=== PATIENT | female | born 1950 | race African-American/Black ===

== ENCOUNTER 2016-10-03 19:00 | Emergency (ER) | payer OTHER ==
[~2016-10-03] VITALS: Ht 121.9 cm; Wt 65.9 kg
[~2016-10-03 19:00] MED LIST: ALBU1AER INH; ALPR0.5T99 PO; ATOR80TA PO; GABA100C2 PO; HYDR-3535 PO; LANTUS2P SQ; LEVE500 PO; NITR0.4S SL; NOVOINJ3 SQ; ROPI0.5T PO; SERT-129 PO; [UNRECOGNIZED DRUG - CODE] LEFT EYE; eliquis
--- NOTE | 2016-10-03 19:36 | PD ---
HPI Chief Complaint: generalized weakness Time Seen by Provider: 19:35 Travel History International Travel<30 days: No Contact w/Intl Traveler<30days: No History of Present Illness HPI 65-year-old female presents to the emergency department via EMS for evaluation of generalized weakness and fatigue. Patient also reports lower abdominal pain that started 2 days ago. She states she has anemia for long time, they're unsure where the blood is coming from. She does report a history of GI bleed, but states she hasn't watching and she has had no blood in her stool and no dark or tarry stools. She denies any blood in her urine. Patient states she has intermittent chest pain or shortness of breath, but none at this time. Patient has a PMH of A-fib, per pt on Eliquis, HTN, h/o CVA w/ residual weakness , COPD and HTN. Patient states she was due to have a colonoscopy in the next 1- 2 weeks, but cannot remember the name of the GI specialist. Patient denies any fevers or chills. No cough or congestion. She reports the multiple blood transfusions in the past. 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 ALL OVER) Endocrine: Yes Gastrointestinal Disorders: Yes (BLEEDING;UNKNOWN ETIOLOGY) GERD: Yes Genitourinary: Yes (RENAL INSUFF) Headaches: Yes Hiatal Hernia: Yes Hypertension: Yes Immune Disorder: No Kidney Stones: No Musculoskeletal: Yes Neurologic: Yes Psychiatric: Yes Reproductive: No Respiratory: Yes (PE/ ASTHMA) Immunizations Current: No Migraines: No Myocardial Infarction: Yes Radiation Therapy: No Renal Failure: Yes Seizures: Yes Sickle Cell Disease: No Sleep Apnea: Yes (wears a CPAP) Thyroid Disease: No Ulcer: No PNEUMOCCOCAL Vaccine (Year): 3 Menopausal: Yes Past Surgical History Abdominal Surgery: Yes (bowel reconstruction) AICD: No Arteriovenous Shunt: No Ear Surgery: No Endocrine Surgery: No Eye Surgery: No Genitourinary Surgery: No Gynecologic Surgery: Yes (hysterectomy) Hysterectomy: Yes Insulin Pump: No Joint Replacement: No Oral Surgery: No Pacemaker: No Thoracic Surgery: No Other Surgery: Yes (HYST, ABD SURGERY) Social History Alcohol Use: No Tobacco Use: No (quit over a year ago) Substance Use: No Allergies-Medications (Allergen,Severity, Reaction): Coded Allergies: Iodine (Verified Allergy, Severe, rash, 10/03/16) Latex (Verified Allergy, Severe, RASH, 10/03/16) Penicillin (Verified Allergy, Severe, SWELLING,HIVES, 10/03/16) Reported Meds & Prescriptions Reported Meds & Active Scripts Active Nitrostat (Nitroglycerin) 0.4 Mg Subl 0.4 Mg SL PRN PRN 1 TAB SL EVERY 5 MINS X 3 PRN CHEST PAIN Neurontin 100 mg Cap (Gabapentin) 100 Mg Cap 100 Mg PO TID 30 Days Reported Sertraline (Sertraline HCl) 100 Mg Tab 100 Mg PO DAILY Ropinirole 0.5 Mg Tab 0.5 Mg PO HS Nitrostat SL (Nitroglycerin) 0.4 Mg Subl 0.4 Mg SL DIRECTED PRN 1 tablet under the tongue as needed for chest pain. Repeat every 5 minutes for a total of 3 DOSES or call 911 if NO relief. Keppra (Levetiracetam) 500 Mg Tab 500 Mg PO BID Lantus Inj (Insulin Glargine) 1,000 Unit/10 Ml Vial 35 Units SQ HS Novolog Flexpen Inj (Insulin Aspart) 300 Unit/3 Ml Pen 1 Units SQ Lortab (Hydrocodone-Acetaminophen) 10-325 Mg Tab 1 Tab PO TID PRN Gabapentin 100 Mg Cap 100 Mg PO TID Ocufen Opth Drops (Flurbiprofen Sodium) 0.03% Soln Atorvastatin (Atorvastatin Calcium) 80 Mg Tab 80 Mg PO HS Xanax (Alprazolam) 0.5 Mg Tab 0.5 Mg PO Q8H PRN Proair Hfa 8.5 GM Inh (Albuterol Sulfate) 90 Mcg/Act Aer 2 Puff INH Q4-6H PRN 108 mcg/actuation [eliquis] BID Lortab 10 mg/325 mg (Hydrocodone/Acetaminophen 10 mg/325 mg) 1 Tab 1 Tab PO TID PRN Sertraline 100 mg (Sertraline HCl) 100 Mg Tab 100 Mg PO DAILY Proair Hfa (Albuterol Sulfate) 8.5 Gm Aero 2 Puff INH Q4H PRN * SHAKE WELL BEFORE USE * Ocufen (Flurbiprofen Sodium) 2.5 Ml Soln 1 Drop LEFT EYE QID Atorvastatin 80 mg (Atorvastatin Calcium) 80 Mg Tab 80 Mg PO DAILY Novolog Flexpen (Insulin Aspart) Flexpen Inj 10 Units SQ TIDAC Lantus (Insulin Glargine) 100 Units/Ml Inj 35 Units SQ HS Keppra (Levetriacetam) 500 Mg Tab 500 Mg PO Q12HR Ropinirole HCl (Ropinirole Hydrochloride) 0.5 Mg Tab 0.5 Mg PO DAILY TAKE 3 HRS PRIOR TO GOING TO BED Xanax (Alprazolam) 0.5 Mg Tab 0.5 Mg PO BIDPRN Review of Systems Except as stated in HPI: all other systems reviewed are Neg Physical Exam Narrative GENERAL: Well-developed well-nourished female patient, afebrile. SKIN: Warm and dry. HEAD: Normocephalic. Atraumatic. EYES: No scleral icterus. No injection or drainage. PERRLA. EOM intact. NECK: Supple, trachea midline. No JVD or lymphadenopathy. CARDIOVASCULAR: Regular rate and rhythm without murmurs, gallops, or rubs. RESPIRATORY: Breath sounds equal bilaterally. No accessory muscle use. Lungs sounds are clear to auscultation. GASTROINTESTINAL: Abdomen soft and nondistended. Patient has tenderness over lower abdomen to palpation. MUSCULOSKELETAL: No cyanosis, or edema. BACK: Nontender without obvious deformity. No CVA tenderness. RECTAL EXAM: No masses or tenderness, stool is brown. Hemoccult is negative. Rectal exam was done with nurse at bedside. Data Data Last Documented VS Vital Signs Date Time Temp Pulse Resp B/P Pulse Ox O2 Delivery O2 Flow Rate FiO2 10/03/16 19:38 98.4 74 16 109/70 98 Orders Electrocardiogram (10/03/16 19:31) Complete Blood Count With Diff (10/03/16 19:31) Comprehensive Metabolic Panel (10/03/16 19:31) Magnesium (Mg) (10/03/16 19:31) Urinalysis - C+S If Indicated (10/03/16 19:31) Ecg Monitoring (10/03/16 19:31) Iv Access Insert/Monitor (10/03/16 19:31) Oximetry (10/03/16 19:31) Sodium Chloride 0.9% Flush (Ns Flush) (10/03/16 19:45) Type And Screen (10/03/16 19:31) Lipase (10/03/16 19:31) Act Partial Throm Time (Ptt) (10/03/16 19:31) Prothrombin Time / Inr (Pt) (10/03/16 19:31) Ct Abd/Pel W/O Iv Contrast (10/03/16 ) Troponin I (10/03/16 19:31) Creatine Kinase (Cpk) (10/03/16 19:31) Chest, Single Ap (10/03/16 ) Labs Laboratory Tests Test 10/03/16 10/03/16 20:00 20:40 Urine Color COLORLESS Urine Turbidity CLEAR Urine pH 6.0 Urine Specific [place] 1.003 Urine Protein NEG mg/dL Urine Glucose (UA) NEG mg/dL Urine Ketones NEG mg/dL Urine Occult Blood NEG Urine Nitrite NEG Urine Bilirubin NEG Urine Urobilinogen LESS THAN 2.0 MG/DL Urine Leukocyte Esterase SMALL Urine WBC 5 /hpf Urine Squamous Epithelial 1 /hpf Cells Microscopic Urinalysis Comment CULT NOT INDICATED White Blood Count 7.9 TH/MM3 Red Blood Count 3.80 MIL/MM3 Hemoglobin 10.2 GM/DL Hematocrit 30.5 % Mean Corpuscular Volume 80.2 FL Mean Corpuscular Hemoglobin 26.8 PG Mean Corpuscular Hemoglobin 33.4 % Concent Red Cell Distribution Width 19.0 % Platelet Count 405 TH/MM3 Mean Platelet Volume 8.0 FL Neutrophils (%) (Auto) 55.3 % Lymphocytes (%) (Auto) 31.9 % Monocytes (%) (Auto) 8.2 % Eosinophils (%) (Auto) 3.6 % Basophils (%) (Auto) 1.0 % Neutrophils # (Auto) 4.4 TH/MM3 Lymphocytes # (Auto) 2.5 TH/MM3 Monocytes # (Auto) 0.7 TH/MM3 Eosinophils # (Auto) 0.3 TH/MM3 Basophils # (Auto) 0.1 TH/MM3 CBC Comment DIFF FINAL Differential Comment Prothrombin Time 11.3 SEC Prothromb Time International 1.0 RATIO Ratio Activated Partial 26.2 SEC Thromboplast Time Sodium Level 139 MEQ/L Potassium Level 4.1 MEQ/L Chloride Level 106 MEQ/L Carbon Dioxide Level 25.5 MEQ/L Anion Gap 8 MEQ/L Blood Urea Nitrogen 17 MG/DL Creatinine 1.28 MG/DL Estimat Glomerular Filtration 51 ML/MIN Rate Random Glucose 95 MG/DL Calcium Level 8.9 MG/DL Magnesium Level 2.1 MG/DL Total Bilirubin 0.2 MG/DL Aspartate Amino Transf 19 U/L (AST/SGOT) Alanine Aminotransferase 22 U/L (ALT/SGPT) Alkaline Phosphatase 201 U/L Total Creatine Kinase 82 U/L Troponin I LESS THAN 0.02 NG/ML Total Protein 7.5 GM/DL Albumin 3.2 GM/DL Lipase 209 U/L Blood Type O POSITIVE Antibody Screen NEGATIVE MDM Medical Decision Making Medical Screen Exam Complete: Yes Emergency Medical Condition: Yes Medical Record Reviewed: Yes Interpretation(s) chest x-ray - CONCLUSION: No evidence of acute cardiopulmonary disease. CT abdomen/pelvis - CONCLUSION: 1. No acute abnormality demonstrated. 2. Previous small bowel surgery with an anastomosis at the level of the distal jejunum/proximal ileum. No obstruction or inflammatory changes are demonstrated. 3. Small kidneys with patchy cortical thinning/scarring and probable numerous small cysts. Differential Diagnosis Symptomatic anemia versus electrolyte abnormality versus GI bleed versus ACS Narrative Course 65 year old female presents to the emergency department for evaluation of generalized weakness/fatigue, stating she was told her hgb was critically low. EKG, CBC, CMP, magnesium, UA, lipase, troponin, CK, type and screen, PTT, PT/INR , chest x-ray, ct abdomen/pelvis is ordered and pending. EKG shows sinus rhythm, heart rate 73, no acute ST changes. CBC shows hemoglobin 10.2, hematocrit 30.5. CMP shows creatinine 1.28, alkaline phosphatase 201. Magnesium is 2.1. CK is 82. Troponin is less than 0.02. Coags are unremarkable. UA shows no evidence of acute infection. Chest x-ray shows no evidence of acute cardiopulmonary disease. CT abdomen/pelvis shows no acute abnormality. Imaging/labs are reassuring. Patient has no need at this time for blood transfusion. I discussed the results with the patient who verbalizes agreement and understanding. She is to follow up wit her primary care physician. She is instructed to return to the emergency department for any acute, worsening of symptoms. The patient was discharged in stable condition with instructions, including return instructions and follow up instructions. Diagnosis Primary Impression: Generalized weakness Referrals: Primary Care Physician call for appointment Patient Instructions: General Instructions, Weakness (ED) Additional Instructions: Follow-up with your primary care physician. Return to the emergency department for any acute worsening of symptoms. Med/Other Pt SpecificInfo: No Change to Meds Disposition: 01 DISCHARGE HOME Condition: Stable Swathi Solano Oct 03, 2016 19:36
[2016-10-03 19:38] VITALS: BP 109/70; PULSE 74; RESP 16; TEMP 98.4; O2SAT 98
[2016-10-03] MEDS ORDERED: SODIUM CHLORIDE 0.9% FLUSH 5 ML FLUSH IVF PRN (19:45)
--- NOTE | 2016-10-03 19:55 | RADRPT ---
EXAM DATE/TIME: 10/03/2016 19:33 [facility] COMPARISON: CHEST SINGLE AP, June 04, 2015, 17:06. INDICATIONS : Shortness of breath. MEDICAL HISTORY : None. SURGICAL HISTORY : None. ENCOUNTER: Initial ACUITY: 1 day PAIN SCORE: 0/10 LOCATION: Bilateral chest FINDINGS: A single view of the chest demonstrates the lungs to be symmetrically aerated without evidence of mas s, infiltrate or effusion. The cardiomediastinal contours are unremarkable. Osseous structures are intact. CONCLUSION: No evidence of acute cardiopulmonary disease. Chad Kimball MD on October 03, 2016 at 19:53 Board Certified Radiologist. This report was verified electronically.
[2016-10-03] MEDS ORDERED: NOVOINJ3 SQ (19:57)
[2016-10-03] MEDS ORDERED: GABA100C4 PO (19:57)
[2016-10-03] MEDS ORDERED: ROPI0.5T PO (19:57)
[2016-10-03] MEDS ORDERED: [UNRECOGNIZED DRUG - CODE] (19:57)
[2016-10-03] MEDS ORDERED: ATOR1TAB18 PO (19:57)
[2016-10-03] MEDS ORDERED: ALBUAER3 INH (19:57)
[2016-10-03] MEDS ORDERED: HYDR-3535 PO (19:57)
[2016-10-03] MEDS ORDERED: LANTUS2P SQ (19:57)
[2016-10-03] MEDS ORDERED: NITR0.4S SL (19:57)
[2016-10-03] MEDS ORDERED: ALPR.5 PO (19:57)
[2016-10-03] MEDS ORDERED: LEVE500 PO (19:57)
[2016-10-03] MEDS ORDERED: SERT-129 PO (19:57)
--- NOTE | 2016-10-03 20:22 | RADRPT ---
EXAM DATE/TIME: 10/03/2016 19:55 [facility] COMPARISON: US KIDNEY/RENAL/BLADDER, July 07, 2014, 10:07. CT ABDOMEN & PELVIS W/O CONTRAST, July 12 13, 17:48. INDICATIONS : Abdomen pain past 2 days. ORAL CONTRAST: No oral contrast ingested. RADIATION DOSE: 9.96 CTDIvol (mGy) MEDICAL HISTORY : Cardiovascular disease. Hypertension. Renal insufficiency.GERD CVA COPD SURGICAL HISTORY : Hysterectomy. Bowel resection ENCOUNTER: Initial ACUITY: 2 days PAIN SCALE: 7/10 LOCATION: Bilateral abdomen TECHNIQUE: Volumetric scanning of the abdomen and pelvis was performed. Using automated exposure control and ad justment of the mA and/or kV according to patient size, radiation dose was kept as low as reasonably achievable to obtain optimal diagnostic quality images. FINDINGS: No acute abnormality seen in the liver, spleen, pancreas or adrenal glands. There are scattered vague hypodensities of both kidneys that appear generally similar to before. Patchy cortical thinning/scar ring again noted. No obstruction seen of the gastrointestinal tract. There is rectus diastases again seen with some ass ociated protruding mesenteric fat and bowel loops but no evidence of obstruction or incarceration. No acute inflammatory changes are demonstrated. There is a small bowel anastomosis anteriorly in the le ft lower pelvis. The appendix is well-visualized, normal. Previous hysterectomy. Visualized lung bases have minimal atelectasis. No acute bony abnormality demonstrated. CONCLUSION: 1. No acute abnormality demonstrated. 2. Previous small bowel surgery with an anastomosis at the level of the distal jejunum/proximal ileum . No obstruction or inflammatory changes are demonstrated. 3. Small kidneys with patchy cortical thinning/scarring and probable numerous small cysts. Chad Kimball MD on October 03, 2016 at 20:15 Board Certified Radiologist. This report was verified electronically.
[2016-10-03 20:53] LABS: AUTOMATED NEUTROPHIL # 4.4 TH/MM3 (1.8-7.7); BASOPHIL # 0.1 TH/MM3 (0-0.2); EOSINOPHIL # 0.3 TH/MM3 (0-0.4); EOSINOPHIL % 3.6 % (0.0-4.0); HEMATOCRIT 30.5 % (35.0-46.0); HEMO FLAGS DIFF FINAL; LYMPH % 31.9 % (9.0-44.0); LYMPHOCYTE # 2.5 TH/MM3 (1.0-4.8); MEAN CELL VOLUME 80.2 FL (80.0-100.0); MEAN CORPUSCULAR HEMOGLOBIN 26.8 PG (27.0-34.0); MEAN CORPUSCULAR HGB CONC 33.4 % (32.0-36.0); MONO % 8.2 % (0.0-8.0); NEUT % 55.3 % (16.0-70.0); PLATELET COUNT 405 TH/MM3 (150-450); WHITE BLOOD COUNT 7.9 TH/MM3 (4.0-11.0)
[2016-10-03 20:58] LABS: BLOOD, URINE NEG (NEG); COMMENT (UR) CULT NOT INDICATED; CULTURE IF INDICATED CULT NOT INDICATED; GLUCOSE,URINE NEG (NEG); KETONE, URINE NEG (NEG); NITRITE,URINE NEG (NEG); SQUAMOUS EPITHELIAL CELL URINE 1 /hpf (0-5); URINE COLOR COLORLESS (YELLW/STRAW)
[2016-10-03 21:02] LABS: APTT (PATIENT) 26.2 SEC (24.3-30.1); PROTHROMBIN TIME - PATIENT 11.3 SEC (9.8-11.6)
[2016-10-03 21:14] LABS: ANION GAP 8 MEQ/L (5-15); AST (GOT) 19 U/L (15-37); BICARBONATE 25.5 MEQ/L (21.0-32.0); BLOOD UREA NITROGEN 17 MG/DL (7-18); CHLORIDE 106 MEQ/L (98-107); GLOMERULAR FILTRATION RATE 51 ML/MIN (>89); MAGNESIUM 2.1 MG/DL (1.5-2.5); POTASSIUM 4.1 MEQ/L (3.5-5.1); SODIUM (NA) 139 MEQ/L (136-145)
[2016-10-03 21:19] LABS: ALKALINE PHOSPHATASE 201 U/L (45-117); ALT (GPT) 22 U/L (10-53); CREATINE KINASE 82 U/L (26-192); TOTAL BILIRUBIN ADULT 0.2 MG/DL (0.2-1.0)
--- NOTE | 2016-10-03 21:43 | PD ---
Data Data Last Documented VS Vital Signs Date Time Temp Pulse Resp B/P Pulse Ox O2 Delivery O2 Flow Rate FiO2 10/03/16 19:38 98.4 74 16 109/70 98 Orders Electrocardiogram (10/03/16 19:31) Complete Blood Count With Diff (10/03/16 19:31) Comprehensive Metabolic Panel (10/03/16 19:31) Magnesium (Mg) (10/03/16 19:31) Urinalysis - C+S If Indicated (10/03/16 19:31) Ecg Monitoring (10/03/16 19:31) Iv Access Insert/Monitor (10/03/16 19:31) Oximetry (10/03/16 19:31) Sodium Chloride 0.9% Flush (Ns Flush) (10/03/16 19:45) Type And Screen (10/03/16 19:31) Lipase (10/03/16 19:31) Act Partial Throm Time (Ptt) (10/03/16 19:31) Prothrombin Time / Inr (Pt) (10/03/16 19:31) Ct Abd/Pel W/O Iv Contrast (10/03/16 ) Troponin I (10/03/16 19:31) Creatine Kinase (Cpk) (10/03/16 19:31) Chest, Single Ap (10/03/16 ) Labs Laboratory Tests Test 10/03/16 10/03/16 20:00 20:40 Urine Color COLORLESS Urine Turbidity CLEAR Urine pH 6.0 Urine Specific [place] 1.003 Urine Protein NEG mg/dL Urine Glucose (UA) NEG mg/dL Urine Ketones NEG mg/dL Urine Occult Blood NEG Urine Nitrite NEG Urine Bilirubin NEG Urine Urobilinogen LESS THAN 2.0 MG/DL Urine Leukocyte Esterase SMALL Urine WBC 5 /hpf Urine Squamous Epithelial 1 /hpf Cells Microscopic Urinalysis Comment CULT NOT INDICATED White Blood Count 7.9 TH/MM3 Red Blood Count 3.80 MIL/MM3 Hemoglobin 10.2 GM/DL Hematocrit 30.5 % Mean Corpuscular Volume 80.2 FL Mean Corpuscular Hemoglobin 26.8 PG Mean Corpuscular Hemoglobin 33.4 % Concent Red Cell Distribution Width 19.0 % Platelet Count 405 TH/MM3 Mean Platelet Volume 8.0 FL Neutrophils (%) (Auto) 55.3 % Lymphocytes (%) (Auto) 31.9 % Monocytes (%) (Auto) 8.2 % Eosinophils (%) (Auto) 3.6 % Basophils (%) (Auto) 1.0 % Neutrophils # (Auto) 4.4 TH/MM3 Lymphocytes # (Auto) 2.5 TH/MM3 Monocytes # (Auto) 0.7 TH/MM3 Eosinophils # (Auto) 0.3 TH/MM3 Basophils # (Auto) 0.1 TH/MM3 CBC Comment DIFF FINAL Differential Comment Prothrombin Time 11.3 SEC Prothromb Time International 1.0 RATIO Ratio Activated Partial 26.2 SEC Thromboplast Time Sodium Level 139 MEQ/L Potassium Level 4.1 MEQ/L Chloride Level 106 MEQ/L Carbon Dioxide Level 25.5 MEQ/L Anion Gap 8 MEQ/L Blood Urea Nitrogen 17 MG/DL Creatinine 1.28 MG/DL Estimat Glomerular Filtration 51 ML/MIN Rate Random Glucose 95 MG/DL Calcium Level 8.9 MG/DL Magnesium Level 2.1 MG/DL Total Bilirubin 0.2 MG/DL Aspartate Amino Transf 19 U/L (AST/SGOT) Alanine Aminotransferase 22 U/L (ALT/SGPT) Alkaline Phosphatase 201 U/L Total Creatine Kinase 82 U/L Troponin I LESS THAN 0.02 NG/ML Total Protein 7.5 GM/DL Albumin 3.2 GM/DL Lipase 209 U/L Blood Type O POSITIVE Antibody Screen NEGATIVE MDM Supervised Visit with BOYD: Yes Narrative Course The history, exam, and medical decision-making in the associated mid-level provider note were completed with my assistance. I reviewed and agree with the findings presented. I attest that I had a [id number] encounter with the patient on the same day, and personally performed and documented my assessment and findings in the medical record. *My assessment and Findings: 64 year-old woman, multiple medical problems, presents with some abdominal pain and generalized weakness. She is worried that her hemoglobin would be low. She looks overall well. Benign exam. There are a workup including labs CT imaging chest x-ray overall unremarkable. Think she stay for discharge and for follow-up with her primary physician. Diagnosis Primary Impression: Generalized weakness Referrals: Primary Care Physician call for appointment Patient Instructions: General Instructions, Weakness (ED) Additional Instruction: Follow-up with your primary care physician. Return to the emergency department for any acute worsening of symptoms. Disposition: 01 DISCHARGE HOME Condition: Stable Adrian Owen MD Oct 03, 2016 21:43
[2016-10-03 22:32] VITALS: BP 98/56
--- NOTE | 2016-10-04 07:45 | EKG ---
Date Performed: 10/03/2016 Time Performed: 19:55:23 PTAGE: 65 years EKG: Sinus rhythm LOW QRS VOLTAGE IN PRECORDIAL LEADS POSSIBLE ANTERIOR MYOCARDIAL INFARCTION ABNORMAL ECG PREVIOUS TRACING : 06/04/2015 23.17 No significant change from previous tracing noted. DOCTOR: Sage Blackmon Interpretating Date/Time 10/04/2016 07:44:40
== END 2016-10-03 22:25 | disposition home or self-care (01) ==
LOC: NEPA 19:00
DX: R53.1 Weakness (principal); E11.8 Type 2 diabetes mellitus with unspecified complications; J44.9 Chronic obstructive pulmonary disease, unspecified; I10 Essential (primary) hypertension; R10.9 Unspecified abdominal pain; Z79.4 Long term (current) use of insulin; R94.31 Abnormal electrocardiogram [ECG] [EKG]
CPT/HCPCS: 71010; 74176; 80053; 81001; 82550; 83690; 83735; 84484; 85025; 85610; 85730; 86850; 86900; 86901; 93005

== ENCOUNTER 2017-06-28 18:58 | Emergency (ER) | payer OTHER, MEDICAID ==
[~2017-06-28] VITALS: Ht 144.8 cm; Wt 75.0 kg
[~2017-06-28 18:58] MED LIST changes: +ALBUAER3 INH; +ALPR.5 PO; +ATOR80TA45 PO; +GABA100C4 PO; +[UNRECOGNIZED DRUG - CODE]
[2017-06-28 19:06] VITALS: BP 116/74; PULSE 105; RESP 18; TEMP 98.3; O2SAT 95
--- NOTE | 2017-06-28 19:14 | PD ---
HPI Chief Complaint: Pain: Acute or Chronic Time Seen by Provider: 19:12 Travel History International Travel<30 days: No Contact w/Intl Traveler<30days: No Traveled to known affect area: No History of Present Illness HPI The patient is a 66 year old female who presents to the [facility] emergency department with a history of bilateral hip and lower extremity pain that she reports began 3 days ago. On further questioning the patient actually reports that she does have chronic pain and bilateral lower extremities for which she is on hydrocodone. She reports that she's been on this medication for years. She reports that she last took it at 6 PM. The patient reports that yesterday due to the lower extremity weakness she did fall. She denies injuring herself. She denies having any chest pain, chest pressure, or shortness of breath. She denies having any vomiting or diarrhea. She reports that she has been eating and drinking well. She denies having any head injury or loss of consciousness. She denies having any neck pain. She denies having any new numbness or tingling to her extremities. She reports that she has chronic lower extremity pain and weakness related to prior DVT and lower extremity edema. Otherwise on review of systems, the patient denies having any recent fevers, cough, congestion, abdominal pain, urinary symptoms, or other neurologic symptoms. 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, history of anemia, arthritis, chronic lower extremity pain, history of PE chronically anticoagulated on Eliquis, diabetes mellitus, hypertension, acid reflux, sleep apnea, history of seizure disorder Hx Anticoagulant Therapy: Yes (Eliquis) Anemia: Yes Arthritis: Yes Asthma: Yes Atrial Fibrillation: Yes Autoimmune Disease: No Blood Disorders: No Anxiety: Yes Depression: Yes Heart Rhythm Problems: Yes Cancer: No Cardiac Catheterization: No Cardiovascular Problems: Yes High Cholesterol: Yes Chemotherapy: No Chest Pain: Yes Congestive Heart Failure: No COPD: Yes Cerebrovascular Accident: Yes Coronary Artery Disease: Yes Diabetes: Yes Diminished Hearing: No Deep Vein Thrombosis: Yes (STATES SHE HAS CLOTS ALL OVER) Endocrine: Yes Gastrointestinal Disorders: Yes (BLEEDING;UNKNOWN ETIOLOGY) GERD: Yes Genitourinary: Yes (RENAL INSUFF) Headaches: Yes Hiatal Hernia: Yes Hypertension: Yes Immune Disorder: No Kidney Stones: No Musculoskeletal: Yes Neurologic: Yes Psychiatric: Yes Reproductive: No Respiratory: Yes (PE/ ASTHMA) Immunizations Current: No Migraines: No Myocardial Infarction: Yes Radiation Therapy: No Renal Failure: Yes Seizures: Yes Sickle Cell Disease: No Sleep Apnea: Yes (wears a CPAP) Thyroid Disease: No Ulcer: No PNEUMOCCOCAL Vaccine (Year): 3 Menopausal: Yes Past Surgical History Narrative Surgical The patient's past surgical history is significant for hysterectomy, bowel surgery Abdominal Surgery: Yes (bowel reconstruction) AICD: No Arteriovenous Shunt: No Ear Surgery: No Endocrine Surgery: No Eye Surgery: No Genitourinary Surgery: No Gynecologic Surgery: Yes (hysterectomy) Hysterectomy: Yes Insulin Pump: No Joint Replacement: No Oral Surgery: No Pacemaker: No Thoracic Surgery: No Other Surgery: Yes (HYST, ABD SURGERY) Social History Alcohol Use: No Tobacco Use: No (quit over a year ago) Substance Use: No Allergies-Medications (Allergen,Severity, Reaction): Coded Allergies: iodine (Unverified Allergy, Severe, rash, 06/28/17) latex (Unverified Allergy, Severe, RASH, 06/28/17) penicillin G (Unverified Allergy, Severe, SWELLING,HIVES, 06/28/17) potassium iodide (Unverified Allergy, Severe, rash, 06/28/17) povidone-iodine (Unverified Allergy, Severe, rash, 06/28/17) sodium iodide (Unverified Allergy, Severe, rash, 06/28/17) sodium iodide (Unverified Allergy, Severe, rash, 06/28/17) Reported Meds & Prescriptions Reported Meds & Active Scripts Active Reported Flurbiprofen Opth Drops (Flurbiprofen Sodium) 0.03% Soln 1 Drop LEFT EYE QID Hydrocodone-Acetamin 10-325 mg (Hydrocodone/Acetaminophen) 10 Mg-325 Mg Tablet 1 Tab PO TID Flexeril (Cyclobenzaprine HCl) 10 Mg Tab 10 Mg PO TID Meloxicam 7.5 Mg Tab 7.5 Mg PO DAILY Vitamin D3 (Cholecalciferol) 2,000 Unit Cap 2,000 Units PO DAILY Vitamin E 200 Unit Cap 400 Units PO DAILY Lisinopril 2.5 Mg Tab 2.5 Mg PO DAILY Cetirizine (Cetirizine HCl) 10 Mg Tab 10 Mg PO DAILY Spironolactone 50 Mg Tab 50 Mg PO DAILY Eliquis (Apixaban) 5 Mg Tab 5 Mg PO BID Sertraline (Sertraline HCl) 100 Mg Tab 100 Mg PO DAILY Ropinirole 0.5 Mg Tab 0.5 Mg PO HS Nitrostat SL (Nitroglycerin) 0.4 Mg Subl 0.4 Mg SL DIRECTED PRN 1 tablet under the tongue as needed for chest pain. Repeat every 5 minutes for a total of 3 DOSES or call 911 if NO relief. Keppra (Levetiracetam) 500 Mg Tab 500 Mg PO BID Lantus Inj (Insulin Glargine) 1,000 Unit/10 Ml Vial 32 Units SQ HS Novolog Flexpen Inj (Insulin Aspart) 300 Unit/3 Ml Pen 1 Units SQ Gabapentin 100 Mg Cap 300 Mg PO TID Atorvastatin (Atorvastatin Calcium) 80 Mg Tab 80 Mg PO HS Xanax (Alprazolam) 0.5 Mg Tab 0.5 Mg PO BID PRN Proair Hfa 8.5 GM Inh (Albuterol Sulfate) 90 Mcg/Act Aer 2 Puff INH Q4-6H PRN 108 mcg/actuation Review of Systems Except as stated in HPI: all other systems reviewed are Neg General / Constitutional: No: Fever Eyes: No: Visual changes HENT: No: Headaches Cardiovascular: No: Chest Pain or Discomfort Respiratory: No: Shortness of Breath Gastrointestinal: No: Abdominal Pain Genitourinary: No: Dysuria Musculoskeletal: Positive: Myalgias, Arthralgias, Pain Skin: No Rash Neurologic: Positive: Weakness (generalized weakness), No: Focal Abnormalities , Change in Mentation, Slurred Speech, Sensory Disturbance Psychiatric: No: Depression Endocrine: No: Polydipsia Hematologic/Lymphatic: No: Easy Bruising Physical Exam Narrative General: The patient is a well-developed well-nourished female in no acute distress. Head and Neck exam: Head is normocephalic atraumatic. Eyes: EOMI, pupils are equal round and reactive to light. Nose: Midline septum with pink mucous membranes Mouth: Dentition unremarkable. Moist mucus membranes. Posterior oropharynx is not erythematous. No tonsillar hypertrophy. Uvula midline. Airway patent. Neck: No palpable lymphadenopathy. No nuchal rigidity. No thyromegaly. Cardiovascular: Regular rate and rhythm without murmurs, gallops, or rubs. Lungs: Clear to auscultation bilaterally. No wheezes, rhonchi, or rales. Abdomen: Soft, without tenderness to palpation in all 4 quadrants of the abdomen. No guarding, rebound, or rigidity. Normal bowel sounds are audible. No tenderness on palpation of McBurney's point. Extremities: No clubbing or cyanosis, the patient has mild trace edema bilateral lower extremities. 2+ pulses in all 4 extremities. No calf tenderness on palpation. No pain with internal or external rotation of her hips. No shortening or rotation noted on initial examination. Back: No costovertebral angle tenderness to palpation. Neurologic Exam: Cranial nerves 2-12 were intact on exam. Strength is 5/5 in all 4 extremities. No sensory deficits noted. Skin Exam: No rash noted. Intact skin that is warm and dry. Data Data Last Documented VS Vital Signs Date Time Temp Pulse Resp B/P (MAP) Pulse Ox O2 Delivery O2 Flow Rate FiO2 06/28/17 19:11 99 18 06/28/17 19:06 98.3 116/74 (88) 95 Orders Orders Electrocardiogram (06/28/17 19:12) Complete Blood Count With Diff (06/28/17 19:12) Comprehensive Metabolic Panel (06/28/17 19:12) Creatine Kinase (Cpk) (06/28/17 19:12) Ckmb (Isoenzyme) Profile (06/28/17 19:12) Troponin I (06/28/17 19:12) B-Type Natriuretic Peptide (06/28/17 19:12) Prothrombin Time / Inr (Pt) (06/28/17 19:12) Act Partial Throm Time (Ptt) (06/28/17 19:12) Magnesium (Mg) (06/28/17 19:12) Chest, Single Ap (06/28/17 19:12) Iv Access Insert/Monitor (06/28/17 19:12) Ecg Monitoring (06/28/17 19:12) Oximetry (06/28/17 19:12) Us Leg Venous Doppler Bilat (06/28/17 19:12) Pelvis, Ap Only (Routine) (06/28/17 19:39) Sodium Chlor 0.9% 250 Ml Inj (Ns 250 Ml (06/28/17 20:30) Morphine Inj (Morphine Inj) (06/28/17 20:30) Ondansetron Inj (Zofran Inj) (06/28/17 20:30) CKMB (06/28/17 19:15) CKMB% (06/28/17 19:15) Sodium Chlor 0.9% 250 Ml Inj (Ns 250 Ml (06/28/17 21:00) Ed Discharge Order (06/28/17 21:14) Ketamine Inj (Ketalar Inj) (06/28/17 21:30) Labs Laboratory Tests Test 06/28/17 19:15 White Blood Count 10.3 TH/MM3 Red Blood Count 4.79 MIL/MM3 Hemoglobin 13.5 GM/DL Hematocrit 41.1 % Mean Corpuscular Volume 85.7 FL Mean Corpuscular Hemoglobin 28.1 PG Mean Corpuscular Hemoglobin Concent 32.8 % Red Cell Distribution Width 13.8 % Platelet Count 320 TH/MM3 Mean Platelet Volume 8.2 FL Neutrophils (%) (Auto) 44.1 % Lymphocytes (%) (Auto) 40.5 % Monocytes (%) (Auto) 9.0 % Eosinophils (%) (Auto) 5.5 % Basophils (%) (Auto) 0.9 % Neutrophils # (Auto) 4.5 TH/MM3 Lymphocytes # (Auto) 4.2 TH/MM3 Monocytes # (Auto) 0.9 TH/MM3 Eosinophils # (Auto) 0.6 TH/MM3 Basophils # (Auto) 0.1 TH/MM3 CBC Comment DIFF FINAL Differential Comment Prothrombin Time 11.1 SEC Prothromb Time International Ratio 1.0 RATIO Activated Partial Thromboplast Time 28.9 SEC Blood Urea Nitrogen 22 MG/DL Creatinine 1.53 MG/DL Random Glucose 90 MG/DL Total Protein 7.9 GM/DL Albumin 3.5 GM/DL Calcium Level 8.4 MG/DL Magnesium Level 2.0 MG/DL Alkaline Phosphatase 228 U/L Aspartate Amino Transf (AST/SGOT) 23 U/L Alanine Aminotransferase (ALT/SGPT) 26 U/L Total Bilirubin 0.2 MG/DL Sodium Level 134 MEQ/L Potassium Level 4.2 MEQ/L Chloride Level 104 MEQ/L Carbon Dioxide Level 21.6 MEQ/L Anion Gap 8 MEQ/L Estimat Glomerular Filtration Rate 41 ML/MIN Total Creatine Kinase 106 U/L Creatine Kinase MB 0.8 NG/ML Troponin I LESS THAN 0.02 NG/ML MDM Medical Decision Making Medical Screen Exam Complete: Yes Emergency Medical Condition: Yes Medical Record Reviewed: Yes Interpretation(s) Last Impressions Pelvis X-Ray 06/28/171938 Signed Impressions: Service Date/Time: Wednesday, June 28, 2017 20:11 - CONCLUSION: No evidence of fracture. Hips within normal limits. Solo Gamble MD Lower Extremity Ultrasound 06/28/171911 Signed Impressions: Service Date/Time: Wednesday, June 28, 2017 19:36 - CONCLUSION: No evidence of lower extremity DVT on the right or left. Solo Gamble MD Chest X-Ray 06/28/171911 Signed Impressions: Service Date/Time: Wednesday, June 28, 2017 19:19 - CONCLUSION: Normal examination. Michel Franklin MD Differential Diagnosis Pelvis fracture, versus occult hip fracture, versus DVT, versus progression of arthritis, versus osteonecrosis Narrative Course During the course of the patients emergency department visit, the patients history, examination, and differential diagnosis were reviewed with the patient. The patient was placed on a monitor tech with oximetry and frequent blood pressure monitoring. The patient had IV access obtained and blood work sent for analysis. The patient had an ECG done on arrival that shows a sinus tachycardia rate of 100, no acute ST segment elevation, T waves are inverted in V1, lead 3. QRS duration is 77 ms, QTC 385 ms. The patient was initially provided morphine 4 mg IV for pain, Zofran 4 mg IV for nausea, normal saline IV fluid 250 mL bolus. The patients laboratory studies were reviewed and remarkable for a white count of 10.3, hemoglobin 13.5, platelets 320 with monocytes 9. CMP is remarkable for sodium of 134, BUN 22, creatinine 1.53, calcium 8.4, alkaline phosphatase 228, CPK 106, troponin I less than 0.02, PT 11.1, PTT 28.9 Radiology studies were reviewed and remarkable for a chest x-ray that shows no acute cardiopulmonary disease, ultrasound of bilateral lower extremity shows no evidence of DVT. Pelvis x-ray shows no evidence of pelvis fracture or significant arthritis. No hip fractures. The patient was reexamined him reported feeling improved. The patient reports that she does see pain management for her chronic leg and hip pain. She reports that they recently added on Flexeril to her regimen. I recommended that she call in the morning to discuss the fact that her pain management regimen is not adequately controlling her pain consistently that way they can discuss other options for treatment. The patient is resting comfortably and feels better, is alert and in no distress. The patients results and examination findings were discussed with the patient. The repeat examination is unremarkable and benign. The history, exam, diagnostic testing, and current condition do not suggest any significant pathology to warrant further testing, continued ED treatment, admission, or surgical evaluation at this point. The vital signs have been stable. The patient does not have uncontrollable pain, intractable vomiting, or other significant symptoms. The patient's condition is stable and appropriate for discharge. The patient will pursue further outpatient evaluation with a primary care physician or other designated or consulting physician as indicated in the discharge instructions. The patient expressed understanding and was agreeable with this plan. Diagnosis Primary Impression: Leg pain, bilateral Referrals: Pain Management 1 day Primary Care Physician 2 days Patient Instructions: General Instructions, Leg Pain (ED) Med/Other Pt SpecificInfo: No Change to Meds Disposition: 01 DISCHARGE HOME Condition: Stable Ros Milan MD Jun 28, 2017 19:14
--- NOTE | 2017-06-28 19:31 | RADRPT ---
EXAM DATE/TIME: 06/28/2017 19:19 [facility] COMPARISON: CHEST SINGLE AP, October 03, 2016, 19:33. INDICATIONS : Shortness of breath. MEDICAL HISTORY : None. SURGICAL HISTORY : None. ENCOUNTER: Initial ACUITY: 1 day PAIN SCORE: 0/10 LOCATION: Bilateral chest FINDINGS: A single view of the chest demonstrates the lungs to be symmetrically aerated without evidence of mas s, infiltrate or effusion. The cardiomediastinal contours are unremarkable. Osseous structures are intact. CONCLUSION: Normal examination. Michel Franklin MD on June 28, 2017 at 19:30 Board Certified Radiologist. This report was verified electronically.
[2017-06-28] MEDS ORDERED: VITA2000 PO (19:47)
[2017-06-28] MEDS ORDERED: LISI2.5T3 PO (19:47)
[2017-06-28] MEDS ORDERED: SPIR50TA PO (19:47)
[2017-06-28] MEDS ORDERED: APIX5TAB PO (19:47)
[2017-06-28] MEDS ORDERED: CETI10 PO (19:47)
[2017-06-28] MEDS ORDERED: CYCL10TA PO (19:47)
[2017-06-28] MEDS ORDERED: MELO7.5T27 PO (19:47)
[2017-06-28] MEDS ORDERED: [UNRECOGNIZED DRUG - CODE] LEFT EYE (19:47)
[2017-06-28] MEDS ORDERED: VITA200C3 PO (19:47)
[2017-06-28] MEDS ORDERED: HYDR-3583 PO (19:47)
[2017-06-28 20:02] LABS: AUTOMATED NEUTROPHIL # 4.5 TH/MM3 (1.8-7.7); BASOPHIL # 0.1 TH/MM3 (0-0.2); BASOPHIL % 0.9 % (0.0-2.0); EOSINOPHIL # 0.6 TH/MM3 (0-0.4); EOSINOPHIL % 5.5 % (0.0-4.0); HEMATOCRIT 41.1 % (35.0-46.0); HEMO FLAGS DIFF FINAL; LYMPH % 40.5 % (9.0-44.0); LYMPHOCYTE # 4.2 TH/MM3 (1.0-4.8); MEAN CELL VOLUME 85.7 FL (80.0-100.0); MEAN CORPUSCULAR HEMOGLOBIN 28.1 PG (27.0-34.0); MEAN CORPUSCULAR HGB CONC 32.8 % (32.0-36.0); NEUT % 44.1 % (16.0-70.0); PLATELET COUNT 320 TH/MM3 (150-450); RED BLOOD COUNT 4.79 MIL/MM3 (4.00-5.30); RED CELL DISTRIBUTION WIDTH 13.8 % (11.6-17.2); WHITE BLOOD COUNT 10.3 TH/MM3 (4.0-11.0)
[2017-06-28 20:19] LABS: ALT (GPT) 26 U/L (10-53)
[2017-06-28 20:21] LABS: ANION GAP 8 MEQ/L (5-15); AST (GOT) 23 U/L (15-37); BICARBONATE 21.6 MEQ/L (21.0-32.0); BLOOD UREA NITROGEN 22 MG/DL (7-18); CHLORIDE 104 MEQ/L (98-107); GLOMERULAR FILTRATION RATE 41 ML/MIN (>89); SODIUM (NA) 134 MEQ/L (136-145)
[2017-06-28 20:22] LABS: ALKALINE PHOSPHATASE 228 U/L (45-117); APTT (PATIENT) 28.9 SEC (24.3-30.1); CREATINE KINASE 106 U/L (26-192); POTASSIUM 4.2 MEQ/L (3.5-5.1); PROTHROMBIN TIME - PATIENT 11.1 SEC (9.8-11.6); TOTAL BILIRUBIN ADULT 0.2 MG/DL (0.2-1.0)
--- NOTE | 2017-06-28 20:22 | RADRPT ---
EXAM DATE/TIME: 06/28/2017 19:36 [facility] COMPARISON: No previous studies available for comparison. INDICATIONS : Bilateral leg pain. MEDICAL HISTORY : Deep venous thrombosis. Hypercholesterolemia. Hypertension. CVA. Syncope. Atrial fibrillation. Diaz ry artery disease. Hiatal hernia. Myocardial infarction. Renal failure. Diabetes. SURGICAL HISTORY : Hysterectomy. Cataracts. Bowel reconstruction. Heart ablasion. ENCOUNTER: Initial ACUITY: 3 days PAIN SCORE: 6/10 LOCATION: Bilateral legs. TECHNIQUE: Venous ultrasound of the left and right leg was performed from the inguinal ligament to the proximal calf. Real-time, color Doppler and spectral tracing, compression and augmentation techniques were us ed. FINDINGS: RIGHT LEG: There is normal compressibility of the deep venous system from the inguinal region to the proximal ca lf. No echogenic clot is seen in the lumen of the common femoral, femoral, popliteal, and posterior tibial veins. There is a normal response of the venous system to proximal and distal augmentation an d respiration. LEFT LEG: There is normal compressibility of the deep venous system from the inguinal region to the proximal ca lf. No echogenic clot is seen in the lumen of the common femoral, femoral, popliteal, and posterior tibial veins. There is a normal response of the venous system to proximal and distal augmentation an d respiration. CONCLUSION: No evidence of lower extremity DVT on the right or left. Solo Gamble MD on June 28, 2017 at 20:20 Board Certified Radiologist. This report was verified electronically.
[2017-06-28] MEDS ORDERED: SODIUM CHLOR 0.9% 250 ML INJ 250 ML IV ONE ×2 (20:30→21:00)
[2017-06-28] MEDS ORDERED: ONDANSETRON HCL 4 MG/2 ML VIAL IV PUSH ONE (20:30)
[2017-06-28] MEDS ORDERED: MORPHINE SULFATE 2 MG/ML INJ IV PUSH ONE (20:30)
[2017-06-28 20:35] LABS: CKMB 0.8 NG/ML (0.5-3.6)
--- NOTE | 2017-06-28 20:44 | RADRPT ---
EXAM DATE/TIME: 06/28/2017 20:11 [facility] COMPARISON: No previous studies available for comparison. INDICATIONS : Bilateral hip pain radiating down both legs. MEDICAL HISTORY : None. SURGICAL HISTORY : None. ENCOUNTER: Initial ACUITY: 1 day PAIN SCORE: 5/10 LOCATION: Bilateral pelvis FINDINGS: Single AP view the pelvis. Bone alignment within normal limits. No evidence of fracture. No evidence of joint narrowing. Mild reactive bony changes about the pubic symphysis. CONCLUSION: No evidence of fracture. Hips within normal limits. Solo Gamble MD on June 28, 2017 at 20:41 Board Certified Radiologist. This report was verified electronically.
[2017-06-28] MEDS ORDERED: KETAMINE HCL 500 MG/5 ML VIAL IV PUSH ONE (21:30)
--- NOTE | 2017-06-29 15:29 | EKG ---
Date Performed: 06/28/2017 Time Performed: 19:10:40 PTAGE: 66 years EKG: SINUS TACHYCARDIA POSSIBLE ANTERIOR MYOCARDIAL INFARCTION Compared to prior tracing no sign ificant change ABNORMAL RHYTHM ECG PREVIOUS TRACING : 10/03/2016 19.55 DOCTOR: Jhon Coughlin Interpretating Date/Time 06/29/2017 15:27:39
== END 2017-06-28 23:39 | disposition home or self-care (01) ==
LOC: NEPE 18:58
DX: M79.605 Pain in left leg (principal); M79.604 Pain in right leg; G89.29 Other chronic pain; M79.1 Myalgia; R53.1 Weakness; R00.0 Tachycardia, unspecified; R94.31 Abnormal electrocardiogram [ECG] [EKG]; E11.22 Type 2 diabetes mellitus with diabetic chronic kidney disease; I12.9 Hypertensive chronic kidney disease with stage 1 through stage 4 chronic kidney disease, or unspecified chronic kidney disease
CPT/HCPCS: 71010; 72170; 80053; 82550; 82552; 83735; 83880; 84484; 85025; 85610; 85730; 93005; 93970; 96361; 96374; 96375; 99285; J2270; J2405; J7050

== ENCOUNTER 2017-07-08 22:40 | Emergency (ER) | payer OTHER, MEDICAID ==
[~2017-07-08] VITALS: Ht 160 cm; Wt 96.0 kg
[~2017-07-08 22:40] MED LIST changes: -ALBU1AER INH; -ALPR0.5T99 PO; +APIX5TAB PO; -ATOR80TA PO; +CETI10 PO; +CYCL10TA PO; -GABA100C2 PO; -HYDR-3535 PO; +HYDR-3583 PO; +LISI2.5T3 PO; +MELO7.5T27 PO; +SPIR50TA PO; +VITA2000 PO; +VITA200C3 PO; -[UNRECOGNIZED DRUG - CODE]; +[UNRECOGNIZED DRUG - CODE] LEFT EYE; -[UNRECOGNIZED DRUG - CODE] LEFT EYE; -eliquis
[2017-07-08 22:56] VITALS: BP 129/75; PULSE 99; RESP 18; O2SAT 95
[2017-07-09 01:15] LABS: BICARBONATE 24.5 MEQ/L (21.0-32.0); POTASSIUM 4.3 MEQ/L (3.5-5.1)
[2017-07-09 02:08] LABS: BACTERIA, URINE RARE /hpf; BLOOD, URINE NEG (NEG); COMMENT (UR) CULT NOT INDICATED; CULTURE IF INDICATED CULT NOT INDICATED; GLUCOSE,URINE NEG (NEG); KETONE, URINE NEG (NEG); MUCUS URINE FEW /lpf (OCC); NITRITE,URINE NEG (NEG); PH, URINE 5.5 (5.0-8.5); SQUAMOUS EPITHELIAL CELL URINE 1 /hpf (0-5); URINE COLOR LIGHT-YELLOW (YELLW/STRAW)
--- NOTE | 2017-07-09 02:43 | PD ---
HPI Chief Complaint: Seizure Time Seen by Provider: 23:20 Travel History International Travel<30 days: No Contact w/Intl Traveler<30days: No Traveled to known affect area: No History of Present Illness HPI Patient has a seizure disorder. She had a seizure tonic-clonic today. Recently has her Keppra taper down from 750 twice a day to now 300 twice a day. It was due to the fact that she was having edema in her lower extremities therefore was tapered a month ago to 600 total for the day as opposed to 1500. Patient has no complaints at this time. Family is comforting her she thinks the stress of Thanksgiving all family member has triggered the seizure. Denies dysuria denies head pain denies headache denies focal changes. She is awake able to give me a full history no postictal phase at this time. 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) Coronary Artery Disease: Yes Diabetes: Yes Patient Takes Glucophage: No Diminished Hearing: No Deep Vein Thrombosis: Yes (STATES SHE HAS CLOTS ALL OVER) Endocrine: Yes Gastrointestinal Disorders: Yes (BLEEDING;UNKNOWN ETIOLOGY) GERD: Yes Genitourinary: Yes (RENAL INSUFF) Headaches: Yes Hiatal Hernia: Yes Hypertension: Yes Immune Disorder: No Kidney Stones: No Musculoskeletal: Yes Neurologic: Yes Psychiatric: Yes Reproductive: No Respiratory: Yes (PE) Immunizations Current: No Migraines: No Myocardial Infarction: Yes Radiation Therapy: No Renal Failure: Yes (POSSIBLE CANIDATE FOR DIALYSIS) Seizures: Yes Sickle Cell Disease: No Sleep Apnea: Yes (wears a CPAP) Thyroid Disease: No Ulcer: No Influenza Vaccination: Yes PNEUMOCCOCAL Vaccine (Year): 3 ?: Not Menopausal: Yes Past Surgical History Abdominal Surgery: Yes (bowel reconstruction) AICD: No Arteriovenous Shunt: No Cardiac Surgery: Yes (ABLASION FOR AFIB) Ear Surgery: No Endocrine Surgery: No Eye Surgery: No Genitourinary Surgery: No Gynecologic Surgery: Yes (hysterectomy) Hysterectomy: Yes Insulin Pump: No Joint Replacement: No Oral Surgery: No Pacemaker: No Thoracic Surgery: No Other Surgery: Yes (HYST, ABD SURGERY) Family History Family Myocardial Infarction: Yes Social History Alcohol Use: No Tobacco Use: No (quit over a year ago) Substance Use: No Allergies-Medications (Allergen,Severity, Reaction): Coded Allergies: iodine (Unverified Allergy, Severe, rash, 06/28/17) latex (Unverified Allergy, Severe, RASH, 06/28/17) penicillin G (Unverified Allergy, Severe, SWELLING,HIVES, 06/28/17) potassium iodide (Unverified Allergy, Severe, rash, 06/28/17) povidone-iodine (Unverified Allergy, Severe, rash, 06/28/17) sodium iodide (Unverified Allergy, Severe, rash, 06/28/17) sodium iodide (Unverified Allergy, Severe, rash, 06/28/17) Reported Meds & Prescriptions Reported Meds & Active Scripts Active Reported Hydrocodone-Acetamin 10-325 mg (Hydrocodone/Acetaminophen) 10 Mg-325 Mg Tablet 1 Tab PO TID Flexeril (Cyclobenzaprine HCl) 10 Mg Tab 10 Mg PO TID Meloxicam 7.5 Mg Tab 7.5 Mg PO DAILY Vitamin D3 (Cholecalciferol) 2,000 Unit Cap 2,000 Units PO DAILY Vitamin E 200 Unit Cap 400 Units PO DAILY Lisinopril 2.5 Mg Tab 2.5 Mg PO DAILY Cetirizine (Cetirizine HCl) 10 Mg Tab 10 Mg PO DAILY Spironolactone 50 Mg Tab 50 Mg PO DAILY Eliquis (Apixaban) 5 Mg Tab 5 Mg PO BID Sertraline (Sertraline HCl) 100 Mg Tab 100 Mg PO DAILY Ropinirole 0.5 Mg Tab 0.5 Mg PO HS Nitrostat SL (Nitroglycerin) 0.4 Mg Subl 0.4 Mg SL DIRECTED PRN 1 tablet under the tongue as needed for chest pain. Repeat every 5 minutes for a total of 3 DOSES or call 911 if NO relief. Keppra (Levetiracetam) 500 Mg Tab 500 Mg PO BID Lantus Inj (Insulin Glargine) 1,000 Unit/10 Ml Vial 32 Units SQ HS Novolog Flexpen Inj (Insulin Aspart) 300 Unit/3 Ml Pen 1 Units SQ Gabapentin 100 Mg Cap 300 Mg PO TID Atorvastatin (Atorvastatin Calcium) 80 Mg Tab 80 Mg PO HS Xanax (Alprazolam) 0.5 Mg Tab 0.5 Mg PO BID PRN Proair Hfa 8.5 GM Inh (Albuterol Sulfate) 90 Mcg/Act Aer 2 Puff INH Q4-6H PRN 108 mcg/actuation Review of Systems Except as stated in HPI: all other systems reviewed are Neg Neurologic: Positive: Seizures Physical Exam Narrative GENERAL: AOX3 SKIN: Warm and dry. HEAD: Atraumatic. Normocephalic. EYES: Pupils equal and round. No scleral icterus. No injection or drainage. ENT: No nasal bleeding or discharge. Mucous membranes pink and moist. NECK: Trachea midline. No JVD. CARDIOVASCULAR: Regular rate and rhythm. RESPIRATORY: No accessory muscle use. Clear to auscultation. Breath sounds equal bilaterally. GASTROINTESTINAL: Abdomen soft .+ focal right rib area pain , , nondistended. Hepatic and splenic margins not palpable. MUSCULOSKELETAL: Extremities without clubbing, cyanosis, or edema. No obvious deformities. NEUROLOGICAL: Awake and alert. No obvious cranial nerve deficits. Motor grossly within normal limits. Five out of 5 muscle strength in the arms and legs. Normal speech. PSYCHIATRIC: Appropriate mood and affect; insight and judgment normal. Data Data Last Documented VS Vital Signs Date Time Temp Pulse Resp B/P (MAP) Pulse Ox O2 Delivery O2 Flow Rate FiO2 07/09/17 02:45 99 18 108/62 (77) 98 18 107/66 (80) 102 20 108/75 (86) 07/09/17 00:00 99 Nasal Cannula 2.00 Orders Orders Blood Glucose (07/08/17 23:56) Oximetry (07/08/17 23:56) Iv Access Insert/Monitor (07/08/17 23:56) Ecg Monitoring (07/08/17 23:56) Oxygen Administration (07/08/17 23:56) Phenytoin (Dilantin) (07/08/17 23:56) Basic Metabolic Panel (Bmp) (07/08/17 23:56) Prothrombin Time / Inr (Pt) (07/09/17 00:03) Urinalysis - C+S If Indicated (07/09/17 01:02) Orthostatic Vital Signs (07/09/17 02:25) Ed Discharge Order (07/09/17 03:19) Labs Laboratory Tests Test 07/09/17 00:10 07/09/17 01:55 Prothrombin Time 11.0 SEC Prothromb Time International Ratio 1.0 RATIO Blood Urea Nitrogen 29 MG/DL Creatinine 1.77 MG/DL Random Glucose 139 MG/DL Calcium Level 9.4 MG/DL Sodium Level 138 MEQ/L Potassium Level 4.3 MEQ/L Chloride Level 105 MEQ/L Carbon Dioxide Level 24.5 MEQ/L Anion Gap 9 MEQ/L Estimat Glomerular Filtration Rate 35 ML/MIN Phenytoin (Dilantin) Level 0.8 MCG/ML Urine Color LIGHT-YELLOW Urine Turbidity CLEAR Urine pH 5.5 Urine Specific [place] 1.012 Urine Protein NEG mg/dL Urine Glucose (UA) NEG mg/dL Urine Ketones NEG mg/dL Urine Occult Blood NEG Urine Nitrite NEG Urine Bilirubin NEG Urine Urobilinogen LESS THAN 2.0 MG/DL Urine Leukocyte Esterase MOD Urine RBC 2 /hpf Urine WBC 6 /hpf Urine Squamous Epithelial Cells 1 /hpf Urine Bacteria RARE /hpf Urine Mucus FEW /lpf Microscopic Urinalysis Comment CULT NOT INDICATED MDM Medical Decision Making Medical Screen Exam Complete: Yes Emergency Medical Condition: Yes Differential Diagnosis seizure vs syncope Narrative Course labs normal except creatine 1.77 , she has Hx of CRI last creatinine was 1.53 but it has been as high as 4 in the past, I do not feel that is the cause of her recent seizure , possibly due to lower dose of Keppra, d/c to follow up closely with Neurologist to discuss Keppra dosage Diagnosis Primary Impression: Seizure disorder Disposition: 01 DISCHARGE HOME Condition: Rohit Mera MD Jul 09, 2017 02:43
[2017-07-09 02:45] VITALS: BP_SYST 107; BP_SYST 108; BP_DIAS 62; BP_DIAS 66; BP_DIAS 75; RESP 18; RESP 20
--- NOTE | 2017-07-10 16:17 | EKG ---
Date Performed: 07/08/2017 Time Performed: 22:53:04 PTAGE: 66 years EKG: Sinus rhythm LOW QRS VOLTAGE IN PRECORDIAL LEADS POSSIBLE ANTERIOR MYOCARDIAL INFARCTION Since previous tracing, no significant change noted BORDERLINE ECG PREVIOUS TRACING : 06/28/2017 19.10 DOCTOR: Gregoria Zapien Interpretating Date/Time 07/10/2017 16:15:43
== END 2017-07-09 03:26 | disposition home or self-care (01) ==
LOC: NEPC 22:40
DX: G40.909 Epilepsy, unspecified, not intractable, without status epilepticus (principal); I12.9 Hypertensive chronic kidney disease with stage 1 through stage 4 chronic kidney disease, or unspecified chronic kidney disease; E11.22 Type 2 diabetes mellitus with diabetic chronic kidney disease; N18.9 Chronic kidney disease, unspecified; E78.00 Pure hypercholesterolemia, unspecified; J44.9 Chronic obstructive pulmonary disease, unspecified; I25.10 Atherosclerotic heart disease of native coronary artery without angina pectoris; I48.91 Unspecified atrial fibrillation; K21.9 Gastro-esophageal reflux disease without esophagitis
CPT/HCPCS: 80048; 80185; 81001; 85610; 93005; 99284

== ENCOUNTER 2017-09-09 09:36 | Inpatient (IN) | payer OTHER, MEDICAID, MEDICARE ==
[2017-09-09] VITALS (9 sets, daily range): BP systolic 112–169; BP diastolic 78–95; PULSE 89–139; RESP 18–22; TEMP 97.5–99.4; O2SAT 93–98
[~2017-09-09] VITALS: Ht 147.3 cm; Wt 74.0 kg
[~2017-09-09 09:36] MED LIST changes: -[UNRECOGNIZED DRUG - CODE] LEFT EYE
[2017-09-09] MEDS ORDERED: OMEGA XL PO (10:09)
--- NOTE | 2017-09-09 10:09 | PD ---
HPI Chief Complaint: GI Complaint Time Seen by Provider: 10:04 Travel History International Travel<30 days: No Contact w/Intl Traveler<30days: No Traveled to known affect area: No History of Present Illness HPI 66-year-old female came to the emergency room with history of vomiting for past 2 days. Patient has been throwing up continuously and cannot stop as per her. No history of diarrhea. No history of fever or chills. She has diabetes and her blood sugar this morning was 180. Patient takes insulin for her blood sugar. She appeared very anxious and distressed. She was tachycardic upon arrival with heart rate in 120s. She has some complaint of abdominal pain. Patient has history of small bowel obstruction in the past. [facility] Past Medical History Narrative Medical List of her past medical, surgical, social and family history is reviewed from the nursing note. 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) Coronary Artery Disease: Yes Diabetes: Yes Patient Takes Glucophage: No Diminished Hearing: No Deep Vein Thrombosis: Yes (STATES SHE HAS CLOTS ALL OVER) Endocrine: Yes Gastrointestinal Disorders: Yes (BLEEDING;UNKNOWN ETIOLOGY) GERD: Yes Genitourinary: Yes (RENAL INSUFF) Headaches: Yes Hiatal Hernia: Yes Hypertension: Yes Immune Disorder: No Kidney Stones: No Musculoskeletal: Yes Neurologic: Yes Psychiatric: Yes Reproductive: No Respiratory: Yes (PE) Immunizations Current: No Migraines: No Myocardial Infarction: Yes Radiation Therapy: No Renal Failure: Yes (POSSIBLE CANIDATE FOR DIALYSIS) Seizures: Yes Sickle Cell Disease: No Sleep Apnea: Yes (wears a CPAP) Thyroid Disease: No Ulcer: No Tetanus Vaccination: Unknown PNEUMOCCOCAL Vaccine (Year): 3 Menopausal: Yes Past Surgical History Abdominal Surgery: Yes (bowel reconstruction) AICD: No Arteriovenous Shunt: No Cardiac Surgery: Yes (ABLASION FOR AFIB) Ear Surgery: No Endocrine Surgery: No Eye Surgery: No Genitourinary Surgery: No Gynecologic Surgery: Yes (hysterectomy) Hysterectomy: Yes Insulin Pump: No Joint Replacement: No Oral Surgery: No Pacemaker: No Thoracic Surgery: No Other Surgery: Yes (HYST, ABD SURGERY) Family History Family Myocardial Infarction: Yes Social History Alcohol Use: No Tobacco Use: No (quit over a year ago) Substance Use: No Allergies-Medications (Allergen,Severity, Reaction): Coded Allergies: iodine (Unverified Allergy, Severe, rash, 09/09/17) latex (Unverified Allergy, Severe, RASH, 09/09/17) penicillin G (Unverified Allergy, Severe, SWELLING,HIVES, 09/09/17) potassium iodide (Unverified Allergy, Severe, rash, 09/09/17) povidone-iodine (Unverified Allergy, Severe, rash, 09/09/17) sodium iodide (Unverified Allergy, Severe, rash, 09/09/17) sodium iodide (Unverified Allergy, Severe, rash, 09/09/17) Comments List of her allergies reviewed from the nursing note. Reported Meds & Prescriptions Reported Meds & Active Scripts Active Reported [Perkins Xl] 2 Cap PO DAILY Flexeril (Cyclobenzaprine HCl) 10 Mg Tab 10 Mg PO TID Vitamin D3 (Cholecalciferol) 2,000 Unit Cap 2,000 Units PO DAILY Vitamin E 200 Unit Cap 400 Units PO DAILY Lisinopril 2.5 Mg Tab 2.5 Mg PO DAILY Cetirizine (Cetirizine HCl) 10 Mg Tab 10 Mg PO DAILY Eliquis (Apixaban) 5 Mg Tab 5 Mg PO BID Sertraline (Sertraline HCl) 100 Mg Tab 100 Mg PO DAILY Ropinirole 0.5 Mg Tab 0.5 Mg PO HS Nitrostat SL (Nitroglycerin) 0.4 Mg Subl 0.4 Mg SL DIRECTED PRN 1 tablet under the tongue as needed for chest pain. Repeat every 5 minutes for a total of 3 DOSES or call 911 if NO relief. Keppra (Levetiracetam) 500 Mg Tab 500 Mg PO BID Lantus Inj (Insulin Glargine) 1,000 Unit/10 Ml Vial 32 Units SQ HS Novolog Flexpen Inj (Insulin Aspart) 300 Unit/3 Ml Pen 1 Units SQ Atorvastatin (Atorvastatin Calcium) 80 Mg Tab 80 Mg PO HS Xanax (Alprazolam) 0.5 Mg Tab 0.5 Mg PO BID PRN Proair Hfa 8.5 GM Inh (Albuterol Sulfate) 90 Mcg/Act Aer 2 Puff INH Q4-6H PRN 108 mcg/actuation Narrative Medication List of her home medications reviewed from the nursing note. Review of Systems Except as stated in HPI: all other systems reviewed are Neg Gastrointestinal: Positive: Nausea, Vomiting Physical Exam Narrative GENERAL: Awake, alert, moderate distress, anxious, obese SKIN: Focused skin assessment warm/dry. HEAD: Atraumatic. Normocephalic. EYES: Pupils equal and round. No scleral icterus. No injection or drainage. ENT: No nasal bleeding or discharge. Mucous membranes pink and moist. NECK: Trachea midline. No JVD. CARDIOVASCULAR: Regular rate and rhythm. No murmur appreciated. RESPIRATORY: No accessory muscle use. Clear to auscultation. Breath sounds equal bilaterally. GASTROINTESTINAL: Abdomen soft, non-tender, nondistended. Hepatic and splenic margins not palpable. MUSCULOSKELETAL: No obvious deformities. No clubbing. No cyanosis. No edema. NEUROLOGICAL: Awake and alert. No obvious cranial nerve deficits. Motor grossly within normal limits. Normal speech. PSYCHIATRIC: Appropriate mood and affect; insight and judgment normal. Data Data Last Documented VS Orders Orders Complete Blood Count With Diff (09/09/17 10:15) Comprehensive Metabolic Panel (09/09/17 10:15) Lipase (09/09/17 10:15) Prothrombin Time / Inr (Pt) (09/09/17 10:15) Urinalysis - C+S If Indicated (09/09/17 10:15) Ct Abd/Pel W/O Iv Contrast (09/09/17 10:15) Iv Access Insert/Monitor (09/09/17 10:15) Ecg Monitoring (09/09/17 10:15) Oximetry (09/09/17 10:15) Ondansetron Inj (Zofran Inj) (09/09/17 10:15) Sodium Chlor 0.9% 1000 Ml Inj (Ns 1000 M (09/09/17 10:15) Sodium Chloride 0.9% Flush (Ns Flush) (09/09/17 10:15) Electrocardiogram (09/09/17 10:15) Blood Gas Venous (Vbg) (09/09/17 10:15) Beta Hydroxybutyrate (Acetone) (09/09/17 10:15) Troponin I (09/09/17 10:15) Irma-Gastric Tube Insert/Mon (09/09/17 10:57) Lidocaine 2% Jelly (Xylocaine 2% Jelly) (09/09/17 12:15) Sodium Chlor 0.9% 1000 Ml Inj (Ns 1000 M (09/09/17 12:45) Urine Culture (09/09/17 12:25) Admit Order (Ed Use Only) (09/09/17 13:07) Labs Laboratory Tests Test 09/09/17 10:15 09/09/17 10:40 09/09/17 12:25 Blood Gas Puncture Site Blood Gas Patient Temperature 98.6 Venous Blood pH 7.31 Venous Blood Partial Pressure CO2 39 mmHg Venous Blood Partial Pressure O2 27 mmHg Venous Blood HCO3 19 mmol/L Venous Blood Oxygen Saturation 37 % Venous Blood Oxygen Content 6.6 Vol % Venous Blood Base Excess -6.4 mmol/L Oxygen Delivery Device NASAL CANNULA Blood Gas Liter Flow 2 L/M White Blood Count 17.8 TH/MM3 Red Blood Count 4.82 MIL/MM3 Hemoglobin 14.2 GM/DL Hematocrit 41.1 % Mean Corpuscular Volume 85.2 FL Mean Corpuscular Hemoglobin 29.4 PG Mean Corpuscular Hemoglobin Concent 34.5 % Red Cell Distribution Width 14.7 % Platelet Count 435 TH/MM3 Mean Platelet Volume 8.1 FL Neutrophils (%) (Auto) 81.9 % Lymphocytes (%) (Auto) 11.4 % Monocytes (%) (Auto) 6.4 % Eosinophils (%) (Auto) 0.1 % Basophils (%) (Auto) 0.2 % Neutrophils # (Auto) 14.6 TH/MM3 Lymphocytes # (Auto) 2.0 TH/MM3 Monocytes # (Auto) 1.1 TH/MM3 Eosinophils # (Auto) 0.0 TH/MM3 Basophils # (Auto) 0.0 TH/MM3 CBC Comment DIFF FINAL Differential Comment Prothrombin Time 11.0 SEC Prothromb Time International Ratio 1.1 RATIO Blood Urea Nitrogen 25 MG/DL Creatinine 1.64 MG/DL Random Glucose 198 MG/DL Total Protein 9.1 GM/DL Albumin 3.5 GM/DL Calcium Level 9.2 MG/DL Alkaline Phosphatase 250 U/L Aspartate Amino Transf (AST/SGOT) 15 U/L Alanine Aminotransferase (ALT/SGPT) 23 U/L Total Bilirubin 0.3 MG/DL Sodium Level 139 MEQ/L Potassium Level 4.1 MEQ/L Chloride Level 108 MEQ/L Carbon Dioxide Level 19.8 MEQ/L Anion Gap 11 MEQ/L Estimat Glomerular Filtration Rate 38 ML/MIN Troponin I LESS THAN 0.02 NG/ML Lipase 137 U/L B-Hydroxybutyrate 0.09 MMOL/L Urine Color YELLOW Urine Turbidity HAZY Urine pH 5.5 Urine Specific [place] 1.020 Urine Protein 30 mg/dL Urine Glucose (UA) NEG mg/dL Urine Ketones NEG mg/dL Urine Occult Blood SMALL Urine Nitrite NEG Urine Bilirubin NEG Urine Urobilinogen LESS THAN 2.0 MG/DL Urine Leukocyte Esterase LARGE Urine RBC 5 /hpf Urine WBC 11 /hpf Urine Squamous Epithelial Cells 4 /hpf Urine Bacteria RARE /hpf Urine Hyaline Casts 19 /lpf Urine Mucus FEW /lpf Microscopic Urinalysis Comment CULTURE INDICATED MDM Medical Decision Making Medical Screen Exam Complete: Yes Emergency Medical Condition: Yes Medical Record Reviewed: Yes Interpretation(s) Twelve-lead EKG was reviewed by me. Normal sinus rhythm, normal axis, nonspecific ST-T wave changes, tachycardia, poor R-wave progression. Heart rate of 118 bpm. Differential Diagnosis Small bowel obstruction, gastroparesis, DKA, electrolyte abnormality Narrative Course 2:01 PM patient was given IV Zofran and IV fluid bolus. Blood test results are back. Patient does not have DKA. CT scan of her abdomen and pelvis shows partial small bowel obstruction as per the radiologist. Patient just got a nasogastric tube placed after 3 attempts. This was placed by me after the nurses had been unsuccessful the first 2 attempts. Please refer to my procedure note. Patient has been admitted to the hospitalist. Procedures Procedure Narrative NG tube placement: Lidocaine jelly was inserted into both nostrils total of 5 mL. After 10 minutes the nasogastric tube #16 [place] was inserted into her left nostril and with patient's cooperation was gently slid back into her stomach. As soon as it entered the stomach there was dark green color liquid coming out into the canister attached to the suction. Placement will be confirmed with chest x-ray. Patient tolerated the procedure well. EKG Prior to Arrival: No Diagnosis Primary Impression: Vomiting Qualified Codes: R11.2 - Nausea with vomiting, unspecified Additional Impression: Partial small bowel obstruction Admitting Information Admitting Physician Requests: Admit Scripts Azithromycin (Azithromycin) 250 Mg Tab 250 MG PO DIRECTED for Infection, #6 TAB 0 Refills Take 2 tabs (500 mg) on day 1 then 1 tab daily x 4 days. Prov: Navin Salomon MD 09/13/17 Spironolactone (Spironolactone) 50 Mg Tab 25 MG PO DAILY for water pill, #30 TAB 0 Refills Prov: Navin Salomon MD 09/13/17 Gabapentin (Gabapentin) 100 Mg Cap 200 MG PO TID for Pain Management, #90 CAP 0 Refills Prov: Navin Salomon MD 09/13/17 Jamie Dominguez MD Sep 09, 2017 10:09
[2017-09-09] MEDS ORDERED: ONDANSETRON HCL 4 MG/2 ML VIAL IVP ONE (10:15)
[2017-09-09] MEDS ORDERED: SODIUM CHLOR 0.9% 1000 ML INJ 1,000 ML IV SCH (10:15)
[2017-09-09] MEDS ORDERED: SODIUM CHLORIDE 0.9% FLUSH 10 ML FLUSH IV FLUSH PRN ×2 (10:15→13:30)
--- NOTE | 2017-09-09 10:53 | RADRPT ---
EXAM DATE/TIME: 09/09/2017 10:32 [facility] COMPARISON: CT ABDOMEN & PELVIS W/O CONTRAST, October 03, 2016, 19:55. INDICATIONS : Nausea, vomiting and diarrhea for 1 day ORAL CONTRAST: No oral contrast ingested. RADIATION DOSE: 6.76 CTDIvol (mGy) MEDICAL HISTORY : Hypertension. Diabetes mellitus type 2. Deep venous thrombosis. SURGICAL HISTORY : Colon resection. Hysterectomy. ENCOUNTER: Initial ACUITY: 1 day PAIN SCALE: 10/10 LOCATION: diffuse abdomen TECHNIQUE: Volumetric scanning of the abdomen and pelvis was performed. Using automated exposure control and ad justment of the mA and/or kV according to patient size, radiation dose was kept as low as reasonably achievable to obtain optimal diagnostic quality images. DICOM format image data is available electro nically for review and comparison. FINDINGS: LOWER LUNGS: Atelectasis is present at the right lung base. LIVER: Homogeneous density without lesion. There is no dilation of the biliary tree. No calcified gallstones. SPLEEN: Normal size without lesion. PANCREAS: Within normal limits. KIDNEYS: Normal in size and shape. There is no mass, stone, or hydronephrosis. ADRENAL GLANDS: Within normal limits. VASCULAR: There is no aortic aneurysm. BOWEL/MESENTERY: There is an abnormal bowel gas pattern present with dilatation of several loops of proximal jejunum m easuring up to 4.1 cm. There are multiple air-fluid levels. There is an anastomosis again noted in th e proximal small bowel. No distinct transition zone or mass is identified. The mid and distal ileum a re decompressed. The colon is decompressed as well. There is no free air or fluid. ABDOMINAL WALL: Within normal limits. RETROPERITONEUM: There is no lymphadenopathy. BLADDER: No wall thickening or mass. REPRODUCTIVE: Within normal limits. INGUINAL: There is no lymphadenopathy or hernia. MUSCULOSKELETAL: Within normal limits for patient age. CONCLUSION: Abnormal bowel gas pattern with mild dilatation of multiple loops of proximal jejunum with air-fluid levels of concern for early or partial small bowel obstruction. Postsurgical changes are again noted with anastomosis. Flakito Underwood MD on September 09, 2017 at 10:38 Board Certified Radiologist. This report was verified electronically.
[2017-09-09 11:06] LABS: AUTOMATED NEUTROPHIL # 14.6 TH/MM3 (1.8-7.7); BASOPHIL % 0.2 % (0.0-2.0); EOSINOPHIL % 0.1 % (0.0-4.0); HEMATOCRIT 41.1 % (35.0-46.0); HEMOGLOBIN 14.2 GM/DL (11.6-15.3); LYMPH % 11.4 % (9.0-44.0); MEAN CELL VOLUME 85.2 FL (80.0-100.0); MEAN CORPUSCULAR HEMOGLOBIN 29.4 PG (27.0-34.0); MEAN CORPUSCULAR HGB CONC 34.5 % (32.0-36.0); MEAN PLATELET VOLUME 8.1 FL (7.0-11.0); MONO % 6.4 % (0.0-8.0); MONOCYTE # 1.1 TH/MM3 (0-0.9); NEUT % 81.9 % (16.0-70.0); PLATELET COUNT 435 TH/MM3 (150-450); RED BLOOD COUNT 4.82 MIL/MM3 (4.00-5.30); RED CELL DISTRIBUTION WIDTH 14.7 % (11.6-17.2); WHITE BLOOD COUNT 17.8 TH/MM3 (4.0-11.0)
[2017-09-09 11:17] LABS: INTERNATIONAL NORMALIZED RATIO 1.1 RATIO
[2017-09-09 11:23] LABS: ALBUMIN 3.5 GM/DL (3.4-5.0); AST (GOT) 15 U/L (15-37); BICARBONATE 19.8 MEQ/L (21.0-32.0); BLOOD UREA NITROGEN 25 MG/DL (7-18); CALCIUM 9.2 MG/DL (8.5-10.1); CHLORIDE 108 MEQ/L (98-107); CREATININE 1.64 MG/DL (0.50-1.00); GLOMERULAR FILTRATION RATE 38 ML/MIN (>89); GLUCOSE,RANDOM 198 MG/DL (74-106); SODIUM (NA) 139 MEQ/L (136-145)
[2017-09-09 11:27] LABS: ALKALINE PHOSPHATASE 250 U/L (45-117); ALT (GPT) 23 U/L (10-53); TOTAL BILIRUBIN ADULT 0.3 MG/DL (0.2-1.0); TOTAL PROTEIN 9.1 GM/DL (6.4-8.2); TROPONIN I LESS THAN 0.02 NG/ML (0.02-0.05)
[2017-09-09] MEDS ORDERED: LIDOCAINE 2% JELLY 30 ML TUBE TOPICAL ONE ×2 (12:00→13:30)
[2017-09-09] MEDS ORDERED: LIDOCAINE 2% JELLY 5 ML TUBE TOPICAL ONE (12:15)
[2017-09-09] MEDS ORDERED: SODIUM CHLOR 0.9% 1000 ML INJ 1,000 ML IV ONE (12:45)
[2017-09-09 12:53] LABS: BACTERIA, URINE RARE /hpf; BILIRUBIN, URINE NEG (NEG); BLOOD, URINE SMALL (NEG); GLUCOSE,URINE NEG (NEG); HYALINE CAST, URINE 19 /lpf (RARE); KETONE, URINE NEG (NEG); MUCUS URINE FEW /lpf (OCC); NITRITE,URINE NEG (NEG); PH, URINE 5.5 (5.0-8.5); SQUAMOUS EPITHELIAL CELL URINE 4 /hpf (0-5); URINE COLOR YELLOW (YELLW/STRAW); URINE LEUKOCYTE ESTERASE LARGE (NEG)
[2017-09-09] MEDS ORDERED: cefTRIAXone INJ 1,000 MG in SODIUM CHLORIDE 0.9% INJ 100 ML IV SCH (13:30)
[2017-09-09] MEDS ORDERED: ACETAMINOPHEN 325 MG TAB PO PRN ×2 (13:30→15:00)
[2017-09-09] MEDS ORDERED: NALOXONE HCL 0.4 MG/ML AMP IV PUSH PRN (13:30)
[2017-09-09] MEDS ORDERED: LIDOCAINE HCL 2% JELLY 5 ML SYRINGE TOPICAL ONE (13:45)
[2017-09-09] MEDS ORDERED: KETOROLAC TROMETHAMINE 30 MG/ML (IVP) VIAL IV PUSH PRN (14:00)
--- NOTE | 2017-09-09 14:04 | EKG ---
Date Performed: 09/09/2017 Time Performed: 10:41:18 PTAGE: 66 years EKG: Sinus rhythm VOLTAGE CRITERIA FOR LVH ABNORMAL ECG No significant change from prior electrocardiogram within the constraints of artifact DOCTOR: Richard Seth Interpretating Date/Time 09/09/2017 14:02:22
--- NOTE | 2017-09-09 14:25 | RADRPT ---
EXAM DATE/TIME: 09/09/2017 14:10 [facility] COMPARISON: CT ABDOMEN & PELVIS W/O CONTRAST, September 09, 2017, 10:32. INDICATIONS : Post nasogastric tube placement MEDICAL HISTORY : None. SURGICAL HISTORY : None. ENCOUNTER: Initial ACUITY: 1 day PAIN SCORE: 0/10 LOCATION: Bilateral abdomen FINDINGS: A single AP supine view of the abdomen and pelvis was obtained. Portions of the right side of the abd omen and pelvis were cut off exam. Nasogastric tube is in place with the tip projected over the mid s tomach. Multiple loops of borderline dilated air-containing small bowel are noted in the midabdomen a nd pelvis. Gas and stool is noted segmentally in the colon. The bony structures are intact. CONCLUSION: 1. Interval placement of nasogastric tube. 2. Nonspecific bowel gas pattern. Flakito Underwood MD on September 09, 2017 at 14:22 Board Certified Radiologist. This report was verified electronically.
[2017-09-09] MEDS ORDERED: MAGNESIUM HYDROXIDE SUSP 30 ML CUP PO PRN (15:00)
[2017-09-09] MEDS ORDERED: SODIUM BICARBONATE 8.4% INJ 50 MEQ in SODIUM CHLOR 0.9% 1000 ML INJ 1,000 ML IV SCH (15:00)
--- NOTE | 2017-09-09 15:08 | HHI.HP ---
[facility] Unknown Admission Diagnosis Vomiting, partial small bowel obstruction Diagnoses: (1) Partial small bowel obstruction Chief Complaint: Nausea, vomiting and diarrhea Travel History International Travel<30 Days: No Contact w/Intl Traveler <30 Da: No Traveled to Known Affected Are: No History of Present Illness 66-year-old female with a history of hypertension, diabetes, PE, DVT and prior history of abdominal surgeries presented to the ED for evaluation of an acute onset of nausea, emesis, and diarrhea along with abdominal pain rated 10/10 in intensity [address] abdomen ordering the ED revealed abnormal bowel gas pattern with multiple dilatation of multiple loops of proximal jejunum with air- fluid level and NG tube was placed in ED. She has no GI bleed and denies any chest pain however short of breath. Although she is afebrile however she was tachycardic. Review of Systems Except as stated in HPI: all other systems reviewed are Neg Past Family Social History Past Medical History A-fib h/o CVA w/ residual weakness Diabetes mellitus History of DVT History of PE Anxiety Hypertension COPD Past Surgical History Hysterectomy, Bowel Resection Reported Medications Hydrocodone-Acetamin 10-325 mg (Hydrocodone/Acetaminophen) 10 Mg-325 Mg Tablet 1 Tab PO TID Flexeril (Cyclobenzaprine HCl) 10 Mg Tab 10 Mg PO TID Meloxicam 7.5 Mg Tab 7.5 Mg PO DAILY Vitamin D3 (Cholecalciferol) 2,000 Unit Cap 2,000 Units PO DAILY Vitamin E 200 Unit Cap 400 Units PO DAILY Lisinopril 2.5 Mg Tab 2.5 Mg PO DAILY Cetirizine (Cetirizine HCl) 10 Mg Tab 10 Mg PO DAILY Spironolactone 50 Mg Tab 50 Mg PO DAILY Eliquis (Apixaban) 5 Mg Tab 5 Mg PO BID Sertraline (Sertraline HCl) 100 Mg Tab 100 Mg PO DAILY Ropinirole 0.5 Mg Tab 0.5 Mg PO HS Nitrostat SL (Nitroglycerin) 0.4 Mg Subl 0.4 Mg SL DIRECTED PRN 1 tablet under the tongue as needed for chest pain. Repeat every 5 minutes for a total of 3 DOSES or call 911 if NO relief. Keppra (Levetiracetam) 500 Mg Tab 500 Mg PO BID Lantus Inj (Insulin Glargine) 1,000 Unit/10 Ml Vial 32 Units SQ HS Novolog Flexpen Inj (Insulin Aspart) 300 Unit/3 Ml Pen 1 Units SQ Gabapentin 100 Mg Cap 300 Mg PO TID Atorvastatin (Atorvastatin Calcium) 80 Mg Tab 80 Mg PO HS Xanax (Alprazolam) 0.5 Mg Tab 0.5 Mg PO BID PRN Proair Hfa 8.5 GM Inh (Albuterol Sulfate) 90 Mcg/Act Aer 2 Puff INH Q4-6H PRN 108 mcg/actuation Allergies: Coded Allergies: iodine (Unverified Allergy, Severe, rash, 09/09/17) latex (Unverified Allergy, Severe, RASH, 09/09/17) penicillin G (Unverified Allergy, Severe, SWELLING,HIVES, 09/09/17) potassium iodide (Unverified Allergy, Severe, rash, 09/09/17) povidone-iodine (Unverified Allergy, Severe, rash, 09/09/17) sodium iodide (Unverified Allergy, Severe, rash, 09/09/17) sodium iodide (Unverified Allergy, Severe, rash, 09/09/17) Family History History positive for myocardial infarction, hypertension, diabetes One sister with breast cancer Social History Patient currently denies tobacco, alcohol or illicit drug intake. Physical Exam Vital Signs Vital Signs Date Time Temp Pulse Resp B/P (MAP) Pulse Ox O2 Delivery O2 Flow Rate FiO2 09/09/17 14:03 111 20 146/88 (107) 96 Room Air 09/09/17 10:53 112 21 131/84 (100) 94 Nasal Cannula 2.50 09/09/17 10:52 97.5 118 21 131/84 (100) 93 Nasal Cannula 2.50 09/09/17 10:01 97.5 134 22 126/87 (100) 93 Room Air 09/09/17 09:58 22 09/09/17 09:38 98.5 139 20 112/78 (89) 94 Room Air Physical Exam GENERAL: This is a well-nourished, well-developed patient, in no apparent distress. SKIN: No rashes, ecchymoses or lesions. Cool and dry. HEAD: Atraumatic. Normocephalic. No temporal or scalp tenderness. EYES: Pupils equal round and reactive. Extraocular motions intact. No scleral icterus. No injection or drainage. ENT: Nose without bleeding, purulent drainage or septal hematoma. Throat without erythema, tonsillar hypertrophy or exudate. Uvula midline. Airway patent. NECK: Trachea midline. No JVD or lymphadenopathy. Supple, nontender, no meningeal signs. CARDIOVASCULAR: Regular rate and rhythm without murmurs, gallops, or rubs. RESPIRATORY: Clear to auscultation. Breath sounds equal bilaterally. No wheezes , rales, or rhonchi. GASTROINTESTINAL: Abdomen soft, non-tender, nondistended. No hepato-splenomegaly , or palpable masses. No guarding. MUSCULOSKELETAL: Extremities without clubbing, cyanosis, or edema. No joint tenderness, effusion, or edema noted. No calf tenderness. Negative Homans sign bilaterally. NEUROLOGICAL: Awake and alert. Cranial nerves II through XII intact. Motor and sensory grossly within normal limits. Five out of 5 muscle strength in all muscle groups. Normal speech. Laboratory Laboratory Tests Test 09/09/17 10:15 09/09/17 10:40 09/09/17 12:25 Blood Gas Puncture Site Blood Gas Patient Temperature 98.6 Venous Blood pH 7.31 Venous Blood Partial Pressure CO2 39 Venous Blood Partial Pressure O2 27 Venous Blood HCO3 19 Venous Blood Oxygen Saturation 37 Venous Blood Oxygen Content 6.6 Venous Blood Base Excess -6.4 Oxygen Delivery Device NASAL CANNULA Blood Gas Liter Flow 2 White Blood Count 17.8 Red Blood Count 4.82 Hemoglobin 14.2 Hematocrit 41.1 Mean Corpuscular Volume 85.2 Mean Corpuscular Hemoglobin 29.4 Mean Corpuscular Hemoglobin Concent 34.5 Red Cell Distribution Width 14.7 Platelet Count 435 Mean Platelet Volume 8.1 Neutrophils (%) (Auto) 81.9 Lymphocytes (%) (Auto) 11.4 Monocytes (%) (Auto) 6.4 Eosinophils (%) (Auto) 0.1 Basophils (%) (Auto) 0.2 Neutrophils # (Auto) 14.6 Lymphocytes # (Auto) 2.0 Monocytes # (Auto) 1.1 Eosinophils # (Auto) 0.0 Basophils # (Auto) 0.0 CBC Comment DIFF FINAL Differential Comment Prothrombin Time 11.0 Prothromb Time International Ratio 1.1 Blood Urea Nitrogen 25 Creatinine 1.64 Random Glucose 198 Total Protein 9.1 Albumin 3.5 Calcium Level 9.2 Alkaline Phosphatase 250 Aspartate Amino Transf (AST/SGOT) 15 Alanine Aminotransferase (ALT/SGPT) 23 Total Bilirubin 0.3 Sodium Level 139 Potassium Level 4.1 Chloride Level 108 Carbon Dioxide Level 19.8 Anion Gap 11 Estimat Glomerular Filtration Rate 38 Troponin I LESS THAN 0.02 Lipase 137 B-Hydroxybutyrate 0.09 Urine Color YELLOW Urine Turbidity HAZY Urine pH 5.5 Urine Specific [place] 1.020 Urine Protein 30 Urine Glucose (UA) NEG Urine Ketones NEG Urine Occult Blood SMALL Urine Nitrite NEG Urine Bilirubin NEG Urine Urobilinogen LESS THAN 2.0 Urine Leukocyte Esterase LARGE Urine RBC 5 Urine WBC 11 Urine Squamous Epithelial Cells 4 Urine Bacteria RARE Urine Hyaline Casts 19 Urine Mucus FEW Microscopic Urinalysis Comment CULTURE INDICATED Date/Time Source Procedure Growth Status 09/09/17 12:25 Urine Clean Catch Urine Culture Pending Received Result Diagram: 09/09/17 1040 09/09/17 1040 Septic Shock Reassessment Septic shock perfusion: reassessment completed Caprini VTE Risk Assessment Caprini VTE Risk Assessment: Mod/High Risk (score >= 2) Caprini Risk Assessment Model Point Value = 1 Point Value = 2 Point Value = 3 Point Value = 5 Age 41-60 Minor surgery BMI > 25 kg/m2 Swollen legs Varicose veins or History of unexplained or recurrent spontaneous Oral contraceptives or hormone replacement Sepsis (< 1 month) Serious lung disease, including pneumonia (< 1 month) Abnormal pulmonary function Acute myocardial infarction Congestive heart failure (< 1 month) History of inflammatory bowel disease Medical patient at bed rest Age 61-74 Arthroscopic surgery Major open surgery (> 45 min) Laparoscopic surgery (> 45 min) Malignancy Confined to bed (> 72 hours) Immobilizing plaster cast Central venous access Age >= 75 History of VTE Family history of VTE Factor V Leiden Prothrombin [id number] Lupus anticoagulant Anticardiolipin antibodies Elevated serum homocysteine Heparin-induced thrombocytopenia Other congenital or acquired thrombophilia Stroke (< 1 month) Elective arthroplasty Hip, pelvis, or leg fracture Acute spinal cord injury (< 1 month) Prophylaxis Regimen Total Risk Factor Score Risk Level Prophylaxis Regimen 0-1 Low Early ambulation 2 Moderate Order ONE of the following: *Sequential Compression Device (SCD) *Heparin 5000 units SQ BID 3-4 Higher Order ONE of the following medications: *Heparin 5000 units SQ TID *Enoxaparin/Lovenox 40 mg SQ daily (WT < 150 kg, CrCl > 30 mL/min) *Enoxaparin/Lovenox 30 mg SQ daily (WT < 150 kg, CrCl > 10-29 mL/min) *Enoxaparin/Lovenox 30 mg SQ BID (WT < 150 kg, CrCl > 30 mL/min) AND/OR *Sequential Compression Device (SCD) 5 or more Highest Order ONE of the following medications: *Heparin 5000 units SQ TID (Preferred with Epidurals) *Enoxaparin/Lovenox 40 mg SQ daily (WT < 150 kg, CrCl > 30 mL/min) *Enoxaparin/Lovenox 30 mg SQ daily (WT < 150 kg, CrCl > 10-29 mL/min) *Enoxaparin/Lovenox 30 mg SQ BID (WT < 150 kg, CrCl > 30 mL/min) AND *Sequential Compression Device (SCD) Assessment and Plan Problem List: (1) Partial small bowel obstruction ICD Code: K56.600 - Partial intestinal obstruction, unspecified as to cause Status: Acute Assessment and Plan 66 year-old female with Partial small bowel obstruction CT abdomen noted and review by me with finding of abnormal bowel gas pattern with mild dilatation of multiple loops of proximal jejunum with air-fluid level Place NG tube to low intermittent suction Keep nothing by mouth, IV fluid hydration and continue with conservative management however consider surgical consult if no improvement within next 72 hours UTI Start Cipro 400 mg every 12 hours pending urine culture Metabolic acidosis From GI loses Treat with IVF NS with NaHCo3 Leukocytosis May be secondary to above infectious process Diabetes type 2 Labile Blood glucose Hold Lantus as patient is currently NPO, start insulin sliding scale with FSBG Chronic kidney disease stage III Currently at her baseline, monitor BUN and creatinine History of DVT and PE Resume Eliquis Diarrhea Check C. difficile PCR IV fluid hydration and Lactinex Hypertension Resume outpatient medications COPD No current exacerbations; start DuoNeb as needed Other chronic medical conditions Resume outpatient medications Hyperlipidemia Resume Pravachol DVT prophylaxis: Eliquis Code Status Full code Discussed Condition With Patient, ED physician Physician Certification 2 Midnight Certification Type: Admission for Inpatient Services Order for Inpatient Services The services are ordered in accordance with Medicare regulations or non- Medicare payer requirements, as applicable. In the case of services not specified as inpatient-only, they are appropriately provided as inpatient services in accordance with the 2-midnight benchmark. Estimated LOS (days): 2 days is the estimated time the patient will need to remain in the hospital, assuming treatment plan goals are met and no additional complications. Post-Hospital Plan: Not yet determined Rangel Crabtree MD Sep 09, 2017 15:08
[2017-09-09] MEDS ORDERED: ENALAPRILAT 2.5 MG/2 ML VIAL IV PUSH PRN (15:30)
[2017-09-09] MEDS ORDERED: RESP: ALBUTEROL 2.5 MG/IPRATROPIUM 0.5 MG NEB (PRN) NEB (15:30)
[2017-09-09] MEDS ORDERED: DEXTROSE 50% IN WATER 50 ML VIAL(D50) IV PUSH PRN (15:30)
[2017-09-09] MEDS ORDERED: GLUCAGON 1 MG/ML VIAL OTHER PRN (15:30)
[2017-09-09] MEDS ORDERED: PILL SPLITTER OTHER PRN (15:45)
[2017-09-09] MEDS: INSULIN ASPART SUPPLEMENTAL SCALE SQ SCH ×2 (17:00→21:00)
[2017-09-09] MEDS ORDERED: ONDANSETRON HCL 4 MG/2 ML VIAL IVP PRN (17:00)
[2017-09-09] MEDS: CIPROFLOXACIN 400 MG PREMIX 200 ML IV SCH (18:12)
[2017-09-09] MEDS: SODIUM CHLORIDE 0.9% FLUSH 10 ML FLUSH IV FLUSH SCH (21:00)
[2017-09-09] MEDS: levETIRAcetam 500 MG TAB PO SCH (22:09)
[2017-09-09] MEDS: ATORVASTATIN 80 MG TAB PO SCH (22:10)
[2017-09-09] MEDS: APIXABAN 5 MG TABLET PO SCH (22:10)
[2017-09-09] MEDS: HEPARIN SODIUM - SQ 10,000 UNITS/ML VIAL SQ SCH (22:16)
[2017-09-10] VITALS: BP_SYST 149; BP_SYST 157; BP_DIAS 95; PULSE 104; PULSE 105; RESP 18; TEMP 98.3; TEMP 98.5; O2SAT 97
[2017-09-10 04:00] VITALS: BP 157/95; PULSE 105; RESP 18; TEMP 98.5; O2SAT 98
[2017-09-10] MEDS: CIPROFLOXACIN 400 MG PREMIX 200 ML IV SCH (05:00)
[2017-09-10] MEDS ORDERED: SODIUM CHLOR 0.9% 1000 ML INJ 1,000 ML IV SCH (06:30)
[2017-09-10 08:00] VITALS: BP 155/96; PULSE 101; RESP 18; TEMP 98.7; O2SAT 94
[2017-09-10] MEDS: INSULIN ASPART SUPPLEMENTAL SCALE SQ SCH ×4 (08:00→21:00)
[2017-09-10 08:27] LABS: AUTOMATED NEUTROPHIL # 10.8 TH/MM3 (1.8-7.7); BASOPHIL % 0.3 % (0.0-2.0); EOSINOPHIL # 0.2 TH/MM3 (0-0.4); EOSINOPHIL % 1.1 % (0.0-4.0); HEMATOCRIT 35.1 % (35.0-46.0); HEMOGLOBIN 11.3 GM/DL (11.6-15.3); LYMPH % 16.1 % (9.0-44.0); LYMPHOCYTE # 2.3 TH/MM3 (1.0-4.8); MEAN CELL VOLUME 85.2 FL (80.0-100.0); MEAN CORPUSCULAR HEMOGLOBIN 27.4 PG (27.0-34.0); MEAN CORPUSCULAR HGB CONC 32.2 % (32.0-36.0); MEAN PLATELET VOLUME 7.4 FL (7.0-11.0); MONO % 6.5 % (0.0-8.0); MONOCYTE # 0.9 TH/MM3 (0-0.9); PLATELET COUNT 341 TH/MM3 (150-450); RED BLOOD COUNT 4.11 MIL/MM3 (4.00-5.30); RED CELL DISTRIBUTION WIDTH 14.2 % (11.6-17.2); WHITE BLOOD COUNT 14.2 TH/MM3 (4.0-11.0)
[2017-09-10] MEDS: HEPARIN SODIUM - SQ 10,000 UNITS/ML VIAL SQ SCH (08:38)
[2017-09-10] MEDS: SERTRALINE HCL 100 MG TAB PO SCH (08:38)
[2017-09-10] MEDS: SPIRONOLACTONE 50 MG TAB PO SCH (08:39)
[2017-09-10] MEDS: APIXABAN 5 MG TABLET PO SCH (08:39)
[2017-09-10] MEDS: levETIRAcetam 500 MG TAB PO SCH ×2 (08:39→21:19)
[2017-09-10] MEDS: SODIUM CHLORIDE 0.9% FLUSH 10 ML FLUSH IV FLUSH SCH ×2 (08:40→21:00)
[2017-09-10] MEDS: LISINOPRIL 5 MG TAB PO SCH (08:40)
[2017-09-10 09:00] LABS: ALBUMIN 2.7 GM/DL (3.4-5.0); ALT (GPT) 20 U/L (10-53); AST (GOT) 15 U/L (15-37); BICARBONATE 20.8 MEQ/L (21.0-32.0); BLOOD UREA NITROGEN 18 MG/DL (7-18); CALCIUM 8.7 MG/DL (8.5-10.1); CHLORIDE 109 MEQ/L (98-107); CREATININE 1.15 MG/DL (0.50-1.00); GLOMERULAR FILTRATION RATE 57 ML/MIN (>89); GLUCOSE,RANDOM 159 MG/DL (74-106); SODIUM (NA) 139 MEQ/L (136-145)
[2017-09-10 09:02] LABS: ALKALINE PHOSPHATASE 213 U/L (45-117); TOTAL BILIRUBIN ADULT 0.3 MG/DL (0.2-1.0); TOTAL PROTEIN 7.2 GM/DL (6.4-8.2)
--- NOTE | 2017-09-10 09:50 | RADRPT ---
EXAM DATE/TIME: 09/10/2017 09:31 [place] COMPARISON: ABDOMEN SINGLE VIEW, September 09, 2017, 14:10. INDICATIONS : Nausea, vomiting, abdominal pain, diarrhea. MEDICAL HISTORY : Hypertension. Diabetes mellitus type II. Chronic obstructive pulmonary disease. SURGICAL HISTORY : Hysterectomy. section. ENCOUNTER: Subsequent ACUITY: 2 days PAIN SCORE: 8/10 LOCATION: Entire abdomen. FINDINGS: Supine and upright views of the abdomen were performed. Gaseous distention of multiple bowel loops. The visualized lower lungs are clear. No evidence of free intraperitoneal gas. The osseous structur es are unremarkable. CONCLUSION: Gaseous distention of multiple bowel loops. There appears to be more distention centrally within what appears to be small bowel loops. Rangel Bedoya MD on September 10, 2017 at 9:46 Board Certified Radiologist. This report was verified electronically.
[2017-09-10 11:58] VITALS: BP 149/98; PULSE 100; RESP 18; TEMP 97.9; O2SAT 95
--- NOTE | 2017-09-10 13:12 | PD.CONS ---
cc: Flakito Lerner MD [facility] Service General Surgery Consult Requested By Dr. Salomon Reason for Consult Small bowel obstruction Primary Care Physician Unknown History of Present Illness This is a 66-year-old female with a past medical history of hypertension, diabetes mellitus, PE/DVT and COPD. The patient's came to the Emergency Room yesterday with complaints of nausea, vomiting and diarrhea. The patient reports the pain to be at 10 out of 10 pain. The patient said the symptoms developed about 3 days ago. She denies any sick contacts. She denies any recent travel. She has a prior episode of a similar type episode and symptoms but unsure of the details. She said that she was treated nonoperatively for 3 days but then taken to the operating room for small bowel resection. Again she is unsure of the complete details of this. The patient does take Eliquis at home and has not taken this for a few days but was started on subcutaneous heparin inpatient. The patient does have an elevated white blood cell count but is trending down. The patient's has an elevated BUN/creatinine but these also are trending down. The patient's UA is positive. The patient had NG tube placed which did resolve the nausea and vomiting. A CT abdomen and pelvis was obtained and shows mild dilatation of multiple loops of proximal jejunum with air-filled levels and concerning for partial small bowel obstruction. Today a KUB was obtained which shows gaseous distention of multiple bowel loops. A General Surgery consultation has been requested. Review of Systems Constitutional: DENIES: Fatigue Endocrine: DENIES: Polydipsia, Polyuria, Polyphagia Eyes: DENIES: Diplopia Ears, nose, mouth, throat: DENIES: Hearing loss Respiratory: DENIES: Cough, Snoring Cardiovascular: DENIES: Chest pain Gastrointestinal: COMPLAINS OF: Abdominal pain, Diarrhea, Nausea, Vomiting Genitourinary: DENIES: Urinary frequency Musculoskeletal: DENIES: Joint pain Integumentary: DENIES: Abnormal pigmentation Hematologic/lymphatic: DENIES: Bruising Immunologic/allergic: DENIES: Eczema Neurologic: DENIES: Headache, Localized weakness Psychiatric: DENIES: Mood changes, Depression, Hallucinations Past Family Social History Past Medical History Hypertension Diabetes mellitus PE/DVT COPD----has used oxygen in the past but not currently on it Past Surgical History Bowel resection Hysterectomy Reported Medications Cetirizine Albuterol Flexeril Eliquis Atorvastatin Nitroglycerin Lisinopril Spironolactone Meloxicam [place] Gabapentin Keppra Sertraline Xanax Ropinirole Novolog Lantus Vitamin D Vitamin E [place] Allergies: Coded Allergies: iodine (Unverified Allergy, Severe, rash, 09/09/17) latex (Unverified Allergy, Severe, RASH, 09/09/17) penicillin G (Unverified Allergy, Severe, SWELLING,HIVES, 09/09/17) potassium iodide (Unverified Allergy, Severe, rash, 09/09/17) povidone-iodine (Unverified Allergy, Severe, rash, 09/09/17) sodium iodide (Unverified Allergy, Severe, rash, 09/09/17) sodium iodide (Unverified Allergy, Severe, rash, 09/09/17) Active Ordered Medications Current Medications Medications (Trade) Dose Ordered Sig/[place]rence Route Start Time Stop Time Status Last Admin (NS Flush) 2 ml UNSCH PRN IV FLUSH 09/09/17 10:15 (NS Flush) 2 ml UNSCH PRN IV FLUSH 09/09/17 13:30 (NS Flush) 2 ml BID IV FLUSH 09/09/17 21:00 (Tylenol) 650 mg Q4H PRN PO 09/09/17 13:30 (Zofran Inj) 4 mg Q6H PRN IVP 09/09/17 17:00 09/10/17 11:31 (Heparin Inj) 5,000 units Q12HR SQ 09/09/17 21:00 09/10/17 08:38 (Tylenol) 650 mg Q6H PRN PO 09/09/17 15:00 (Toradol Inj) 15 mg Q6H PRN IV PUSH 09/09/17 14:00 09/14/17 13:59 (Toradol Inj) 30 mg Q6H PRN IV PUSH 09/09/17 14:00 09/14/17 13:59 (Narcan Inj) 0.4 mg UNSCH PRN IV PUSH 09/09/17 13:30 (Milk Of Magnesia Liq) 30 ml Q12HR PRN PO 09/09/17 15:00 Ciprofloxacin/ Dextrose 200 ml @ 200 mls/hr Q12H IV 09/09/17 17:00 09/10/17 05:00 (Eliquis) 5 mg BID PO 09/09/17 21:00 09/10/17 08:39 (Lipitor) 80 mg HS PO 09/09/17 21:00 09/09/17 22:10 (Keppra) 500 mg BID PO 09/09/17 21:00 09/10/17 08:39 (Requip) 0.5 mg HS PO 09/09/17 21:00 09/09/17 22:10 (Zoloft) 100 mg DAILY PO 09/10/17 09:00 09/10/17 08:38 (Aldactone) 50 mg DAILY PO 09/10/17 09:00 09/10/17 08:39 (Prinivil) 2.5 mg DAILY PO 09/10/17 09:00 09/10/17 08:40 (D50w (Vial) Inj) 50 ml UNSCH PRN IV PUSH 09/09/17 15:30 (Glucagon Inj) 1 mg UNSCH PRN OTHER 09/09/17 15:30 (NovoLOG SUPPLEMENTAL SCALE) 1 ACHS SLIDING SCALE SQ 09/09/17 17:00 (Duoneb Neb) 1 ampule Q2HR NEB PRN NEB 09/09/17 15:30 (Vasotec Inj) 2.5 mg Q6H PRN IV PUSH 09/09/17 15:30 (Pill Splitter) 1 ea UNSCH PRN OTHER 09/09/17 15:45 Sodium Chloride 1,000 ml @ 84 mls/hr [id number] IV 09/10/17 06:30 09/10/17 05:45 Family History Noncontributory Social History Denies tobacco use Denies EtOH use Denies illicit drug use Physical Exam Vital Signs Vital Signs Date Time Temp Pulse Resp B/P (MAP) Pulse Ox O2 Delivery O2 Flow Rate FiO2 09/10/17 11:58 97.9 100 18 149/98 (115) 95 09/10/17 08:00 98.7 101 18 155/96 (115) 94 09/10/17 07:00 Nasal Cannula 2.50 09/10/17 04:00 98.5 105 18 157/95 (115) 98 2/1/18 00:00 98.5 105 18 157/95 (115) 97 09/10/17 00:00 98.3 104 18 149/95 (113) 97 09/09/17 21:55 Nasal Cannula 2.50 09/09/17 19:30 98.4 105 20 169/95 (119) 98 09/09/17 16:30 99.4 113 18 151/89 (109) 96 09/09/17 16:05 Nasal Cannula 2.50 09/09/17 15:55 108 16 146/88 (107) 96 Nasal Cannula 2.50 09/09/17 15:25 89 18 146/88 (107) 97 Nasal Cannula 2.50 09/09/17 14:03 111 20 146/88 (107) 96 Room Air Physical Exam GENERAL: 66-year-old female resting in bed in no acute distress. SKIN: Warm and dry. HEAD: Atraumatic. Normocephalic. EYES: Pupils equal and round. No scleral icterus. No injection or drainage. ENT: No nasal bleeding or discharge. Mucous membranes pink and moist. NECK: Trachea midline. CARDIOVASCULAR: Regular rate and rhythm. RESPIRATORY: No accessory muscle use. Clear to auscultation. Breath sounds equal bilaterally. GASTROINTESTINAL: Abdomen soft, distended. Tender throughout all 4 quadrants to palpation. Well healed laparoscopic scar; Well healed midline incision. No visible hernias. Hypoactive bowel sounds. MUSCULOSKELETAL: Extremities without clubbing, cyanosis, or edema. No obvious deformities. NEUROLOGICAL: Awake and alert. No obvious cranial nerve deficits. Motor grossly within normal limits. Five out of 5 muscle strength in the arms and legs. Normal speech. PSYCHIATRIC: Appropriate mood and affect; insight and judgment normal. Laboratory Laboratory Tests Test 09/10/17 07:39 White Blood Count 14.2 Red Blood Count 4.11 Hemoglobin 11.3 Hematocrit 35.1 Mean Corpuscular Volume 85.2 Mean Corpuscular Hemoglobin 27.4 Mean Corpuscular Hemoglobin Concent 32.2 Red Cell Distribution Width 14.2 Platelet Count 341 Mean Platelet Volume 7.4 Neutrophils (%) (Auto) 76.0 Lymphocytes (%) (Auto) 16.1 Monocytes (%) (Auto) 6.5 Eosinophils (%) (Auto) 1.1 Basophils (%) (Auto) 0.3 Neutrophils # (Auto) 10.8 Lymphocytes # (Auto) 2.3 Monocytes # (Auto) 0.9 Eosinophils # (Auto) 0.2 Basophils # (Auto) 0.0 CBC Comment DIFF FINAL Differential Comment Blood Urea Nitrogen 18 Creatinine 1.15 Random Glucose 159 Total Protein 7.2 Albumin 2.7 Calcium Level 8.7 Alkaline Phosphatase 213 Aspartate Amino Transf (AST/SGOT) 15 Alanine Aminotransferase (ALT/SGPT) 20 Total Bilirubin 0.3 Sodium Level 139 Potassium Level 4.1 Chloride Level 109 Carbon Dioxide Level 20.8 Anion Gap 9 Estimat Glomerular Filtration Rate 57 Date/Time Source Procedure Growth Status 09/09/17 12:25 Urine Clean Catch Urine Culture Pending Received Result Diagram: 09/10/17 0739 09/10/17 0739 Imaging Last 48 hours Impressions Abdomen X-Ray 09/10/17 0600 Signed Impressions: Service Date/Time: September 09:31 - CONCLUSION: Gaseous distention of multiple bowel loops. There appears to be more distention centrally within what appears to be small bowel loops. Rangel Bedoya MD Abdomen/Pelvis CT 09/09/17 1015 Signed Impressions: Service Date/Time: Saturday, September 09, 2017 10:32 - CONCLUSION: Abnormal bowel gas pattern with mild dilatation of multiple loops of proximal jejunum with air-fluid levels of concern for early or partial small bowel obstruction. Postsurgical changes are again noted with anastomosis. Flakito Underwood MD Abdomen X-Ray 09/09/17 0000 Signed Impressions: Service Date/Time: Saturday, September 09, 2017 14:10 - CONCLUSION: 1. Interval placement of nasogastric tube. 2. Nonspecific bowel gas pattern. Flakito Underwood MD Assessment and Plan Assessment and Plan 66 year old female with abdominal pain; small bowel obstruction in imaging; dehydration; UTI -Recommend continuing NGT to LIWS -NPO -PT -Hold Eliquis and subcutaneous heparin -KUB in AM -Will continue to follow -Will attempt non operative management for now but if not successful may need operative intervention -Thank you for this consult; We will continue to follow Attending Note - Dr. Lerner Abdomen is soft, minimally tender, but distended. Recheck plain film in AM Keep NG to suction for now. The exam, history, and the medical decision-making described in the above note were completed with the assistance of the mid-level provider. I reviewed and agree with the findings presented. I attest that I had a [id number] encounter with the patient on the same day, and personally performed and documented my assessment and findings in the medical record. Discussed Condition With Dr. Yann Martins. Amy Sherman Sep 10, 2017 13:12 Flakito Lerner MD Sep 11, 2017 16:55
[2017-09-10 15:54] VITALS: BP 132/88; PULSE 105; RESP 18; TEMP 98.1; O2SAT 96
--- NOTE | 2017-09-10 16:32 | HHI.PR ---
Subjective Remarks Patient seen today around noon. She reports continued abdominal discomfort. Denies any chest pain or shortness of breath. Objective Vital Signs Date Time Temp Pulse Resp B/P (MAP) Pulse Ox O2 Delivery O2 Flow Rate FiO2 09/10/17 15:54 98.1 105 18 132/88 (103) 96 09/10/17 11:58 97.9 100 18 149/98 (115) 95 09/10/17 08:00 98.7 101 18 155/96 (115) 94 09/10/17 07:00 Nasal Cannula 2.50 09/10/17 04:00 98.5 105 18 157/95 (115) 98 09/10/17 00:00 98.5 105 18 157/95 (115) 97 09/10/17 00:00 98.3 104 18 149/95 (113) 97 09/09/17 21:55 Nasal Cannula 2.50 09/09/17 19:30 98.4 105 20 169/95 (119) 98 09/09/17 16:30 99.4 113 18 151/89 (109) 96 I/O 09/09/17 09/09/17 09/09/17 09/10/17 09/10/17 09/10/17 07:00 15:00 23:00 07:00 15:00 23:00 Intake Total 1000 ml 641 ml Output Total 550 ml Balance 1000 ml 91 ml Intake IV Total 1000 ml 641 ml Output Gastric Drainage Total 550 ml Result Diagram: 09/10/17 0739 09/10/17 0739 Objective Remarks GENERAL: Patient sitting up in bed. No acute distress. SKIN: Warm and dry. HEAD: Normocephalic. EYES: No scleral icterus. No injection or drainage. NECK: Supple, trachea midline. No JVD. CARDIOVASCULAR: Regular rate and rhythm without murmurs, gallops, or rubs. RESPIRATORY: Breath sounds equal bilaterally. No accessory muscle use. GASTROINTESTINAL: Abdomen soft, non-tender, nondistended. MUSCULOSKELETAL: No cyanosis, or edema. BACK: Nontender without obvious deformity. No CVA tenderness. A/P Assessment and Plan 66 year-old female with //Partial small bowel obstruction CT abdomen noted and review by me with finding of abnormal bowel gas pattern with mild dilatation of multiple loops of proximal jejunum with air-fluid level Place NG tube to low intermittent suction Keep nothing by mouth, IV fluid hydration = Minimal improvement with decompression. Consult general surgery //UTI Start Cipro 400 mg every 12 hours pending urine culture = Patient asymptomatic. Discontinue Cipro. //non anion gap Metabolic acidosis From GI loses Treat with with NaHCo3 //Leukocytosis May be secondary to above infectious process //Diabetes type 2 Labile Blood glucose Hold Lantus as patient is currently NPO, start insulin sliding scale with FSBG //Chronic kidney disease stage III Currently at her baseline, monitor BUN and creatinine //History of DVT and PE Resume Eliquis //Diarrhea Check C. difficile PCR IV fluid hydration and Lactinex //Hypertension Resume outpatient medications //COPD No current exacerbations; start DuoNeb as needed //Other chronic medical conditions Resume outpatient medications //Psychosis. Improving. 14. Likely secondary to stress, pain. continue monitor for signs of infection. obtain chest x-ray ////Hyperlipidemia Resume Pravachol //DVT prophylaxis: Navin Egan MD Sep 10, 2017 16:32
--- NOTE | 2017-09-10 17:13 | RADRPT ---
EXAM DATE/TIME: 09/10/2017 16:46 [facility] COMPARISON: CHEST SINGLE AP, June 28, 2017, 19:19. INDICATIONS : Leukocytosis. Nausea, vomiting, abdominal pain, diarrhea MEDICAL HISTORY : Hypertension. Diabetes mellitus type II. Chronic obstructive pulmonary disease. SURGICAL HISTORY : Hysterectomy. section. ENCOUNTER: Subsequent ACUITY: 1 day PAIN SCORE: Non-responsive. LOCATION: Bilateral Chest. FINDINGS: A single portable frontal view of the chest shows parenchymal consolidations within the medial lung b ases bilaterally. No effusions. Heart is normal in size. Tip of the nasogastric tube just past the GE junction. CONCLUSION: Bibasilar atelectasis versus infiltrates. Suman Washington Jr., MD on September 10, 2017 at 17:04 Board Certified Radiologist. This report was verified electronically.
[2017-09-10] MEDS: SODIUM BICARBONATE 8.4% INJ 150 MEQ in WATER STERILE FOR INJ 850 ML IV SCH (18:19)
[2017-09-10 20:00] VITALS: BP 144/87; PULSE 112; RESP 21; TEMP 99.2; O2SAT 94
[2017-09-10] MEDS: ATORVASTATIN 80 MG TAB PO SCH (21:19)
[2017-09-11 00:03] VITALS: BP 142/87; PULSE 104; RESP 18; TEMP 98.3; O2SAT 92
[2017-09-11] MEDS: KETOROLAC TROMETHAMINE 30 MG/ML (IVP) VIAL IV PUSH PRN (01:03)
[2017-09-11] MEDS: SODIUM BICARBONATE 8.4% INJ 150 MEQ in WATER STERILE FOR INJ 850 ML IV SCH ×2 (02:00→13:17)
[2017-09-11 05:55] VITALS: BP 140/89; PULSE 98; RESP 18; TEMP 98.2; O2SAT 93
[2017-09-11 07:31] LABS: AUTOMATED NEUTROPHIL # 7.2 TH/MM3 (1.8-7.7); BASOPHIL # 0.1 TH/MM3 (0-0.2); BASOPHIL % 0.6 % (0.0-2.0); EOSINOPHIL # 0.3 TH/MM3 (0-0.4); EOSINOPHIL % 2.8 % (0.0-4.0); HEMATOCRIT 35.6 % (35.0-46.0); HEMOGLOBIN 11.9 GM/DL (11.6-15.3); LYMPH % 25.7 % (9.0-44.0); MEAN CELL VOLUME 83.8 FL (80.0-100.0); MEAN CORPUSCULAR HEMOGLOBIN 27.9 PG (27.0-34.0); MEAN CORPUSCULAR HGB CONC 33.3 % (32.0-36.0); MEAN PLATELET VOLUME 7.7 FL (7.0-11.0); MONO % 9.8 % (0.0-8.0); MONOCYTE # 1.2 TH/MM3 (0-0.9); NEUT % 61.1 % (16.0-70.0); PLATELET COUNT 330 TH/MM3 (150-450); RED BLOOD COUNT 4.25 MIL/MM3 (4.00-5.30); RED CELL DISTRIBUTION WIDTH 14.1 % (11.6-17.2); WHITE BLOOD COUNT 11.8 TH/MM3 (4.0-11.0)
[2017-09-11] MEDS: INSULIN ASPART SUPPLEMENTAL SCALE SQ SCH ×4 (08:00→20:58)
[2017-09-11 08:02] LABS: ALBUMIN 2.8 GM/DL (3.4-5.0); BICARBONATE 31.2 MEQ/L (21.0-32.0); CALCIUM 9.2 MG/DL (8.5-10.1); CREATININE 1.03 MG/DL (0.50-1.00); MAGNESIUM 1.9 MG/DL (1.5-2.5); PHOSPHORUS 3.7 MG/DL (2.5-4.9)
[2017-09-11 08:03] VITALS: BP 138/91; PULSE 101; RESP 22; TEMP 98.8; O2SAT 94
--- NOTE | 2017-09-11 08:49 | RADRPT ---
EXAM DATE/TIME: 09/11/2017 06:40 [facility] COMPARISON: ABDOMEN FLAT & UPRIGHT, September 10, 2017, 9:31. INDICATIONS : Abdominal pain. MEDICAL HISTORY : None. SURGICAL HISTORY : None. ENCOUNTER: Subsequent ACUITY: 2 days PAIN SCORE: 6/10 LOCATION: Bilateral entire abdomen. FINDINGS: 2 supine frontal views of the abdomen show gaseous distention of the colon without gross dilatation. No dilated loops of small bowel observed. Gas is seen to the level of the rectal vault. No gross pneu moperitoneum. Nasogastric tube is observed. No organomegaly. Lung bases are clear. Bony structures ar e unremarkable CONCLUSION: No dilated loops of small bowel. Gaseous distention of the colon without gross dilatation. Suman Washington Jr., MD on September 11, 2017 at 8:45 Board Certified Radiologist. This report was verified electronically.
[2017-09-11] MEDS: SODIUM CHLORIDE 0.9% FLUSH 10 ML FLUSH IV FLUSH SCH ×2 (09:47→20:58)
[2017-09-11] MEDS: levETIRAcetam 500 MG TAB PO SCH ×2 (09:47→20:57)
[2017-09-11] MEDS: SERTRALINE HCL 100 MG TAB PO SCH (09:47)
[2017-09-11] MEDS: SPIRONOLACTONE 50 MG TAB PO SCH (09:47)
[2017-09-11] MEDS: LISINOPRIL 5 MG TAB PO SCH (09:47)
--- NOTE | 2017-09-11 11:04 | HHI.PR ---
cc: Flakito Lerner MD Subjective Subjective Notes Resting in bed Reports no BM; feeling about the same Objective Vitals/I&O Vital Signs Date Time Temp Pulse Resp B/P (MAP) Pulse Ox O2 Delivery O2 Flow Rate FiO2 09/11/17 08:03 98.8 101 22 138/91 (107) 94 09/11/17 04:00 Nasal Cannula 2.50 Labs Laboratory Tests Test 09/11/17 06:09 White Blood Count 11.8 Red Blood Count 4.25 Hemoglobin 11.9 Hematocrit 35.6 Mean Corpuscular Volume 83.8 Mean Corpuscular Hemoglobin 27.9 Mean Corpuscular Hemoglobin Concent 33.3 Red Cell Distribution Width 14.1 Platelet Count 330 Mean Platelet Volume 7.7 Neutrophils (%) (Auto) 61.1 Lymphocytes (%) (Auto) 25.7 Monocytes (%) (Auto) 9.8 Eosinophils (%) (Auto) 2.8 Basophils (%) (Auto) 0.6 Neutrophils # (Auto) 7.2 Lymphocytes # (Auto) 3.0 Monocytes # (Auto) 1.2 Eosinophils # (Auto) 0.3 Basophils # (Auto) 0.1 CBC Comment DIFF FINAL Differential Comment Blood Urea Nitrogen 14 Creatinine 1.03 Random Glucose 101 Albumin 2.8 Calcium Level 9.2 Phosphorus Level 3.7 Magnesium Level 1.9 Sodium Level 139 Potassium Level 3.2 Chloride Level 99 Carbon Dioxide Level 31.2 Anion Gap 9 Estimat Glomerular Filtration Rate 65 Date/Time Source Procedure Growth Status 09/09/17 12:25 Urine Clean Catch Urine Culture - Final 50-100,000 CFU/ML MIXED GRAM POSITIVE... Complete Radiology Last 48 hours Impressions Abdomen X-Ray 09/10/17 0600 Signed Impressions: Service Date/Time: September 09:31 - CONCLUSION: Gaseous distention of multiple bowel loops. There appears to be more distention centrally within what appears to be small bowel loops. Rangel Bedoya MD Abdomen/Pelvis CT 09/09/17 1015 Signed Impressions: Service Date/Time: Saturday, September 09, 2017 10:32 - CONCLUSION: Abnormal bowel gas pattern with mild dilatation of multiple loops of proximal jejunum with air-fluid levels of concern for early or partial small bowel obstruction. Postsurgical changes are again noted with anastomosis. Flakito Underwood MD Abdomen X-Ray 09/09/17 0000 Signed Impressions: Service Date/Time: Saturday, September 09, 2017 14:10 - CONCLUSION: 1. Interval placement of nasogastric tube. 2. Nonspecific bowel gas pattern. Flakito Underwood MD Cardiovascular: Regular Lungs: Clear Abdomen: Other (much less distended that yesterday on exam; NGT in place ) Extremities: No edema A/P Assessment and Plan 66 year old female with abdominal pain; small bowel obstruction in imaging; dehydration; UTI -KUB shows some improvement -Plan for SBFT today -NPO -PT -Hold Eliquis and subcutaneous heparin -Will continue to follow -Will attempt non operative management for now but if not successful may need operative intervention -Discussed plan with Dr. Salomon Attending Note - Dr. Lerner Abdomen still distended, but nontender NG output only 200 ml since yesterday SBS shows transit to ileocecal valve in 90 mins; no SBO Clamp NG and check residuals If low, will remove NG and start liquids in AM The exam, history, and the medical decision-making described in the above note were completed with the assistance of the mid-level provider. I reviewed and agree with the findings presented. I attest that I had a [id number] encounter with the patient on the same day, and personally performed and documented my assessment and findings in the medical record. Amy Carrizales Sep 11, 2017 11:04 Flakito Lerner MD Sep 11, 2017 16:52
[2017-09-11] MEDS ORDERED: DIATRIZOATE MEGLUM/DIATRIZOATE SOD 120 ML BTL (for RAD DIAG) NG ONE ×2 (11:42→14:54)
--- NOTE | 2017-09-11 13:15 | RADRPT ---
EXAM DATE/TIME: 09/11/2017 10:51 [facility] COMPARISON: No previous studies available for comparison. INDICATIONS : Nausea and abdominal pain. Evaluate for small bowel obstruction. FLUORO TIME: 1.2 minutes IMAGE COUNT: 15 CONTRAST: [facility] IMAGING TIME(S): 15 min, 30 min, 45 min, 1 hr, 1.5 hrs MEDICAL HISTORY : Hypertension. Diabetes mellitus type II. Chronic obstructive pulmonary disease. SURGICAL HISTORY : Hysterectomy. section. ENCOUNTER: Subsequent ACUITY: 3 days PAIN SCORE: 8/10 LOCATION: Entire abdomen. FINDINGS: Preliminary film is unremarkable. The stomach is grossly unremarkable. Examination of the small bowel demonstrates normal mucosal pattern involving the jejunum and ileum. There is no evidence of mass or obstruction. No intraluminal filling defects are identified. Small bowel transit time is normal at 60 minutes. Fluoroscopy of the abdomen and terminal ileum demonstrat es no abnormality. CONCLUSION: Unremarkable small bowel examination. Calvin Patten MD on September 11, 2017 at 13:10 Board Certified Radiologist. This report was verified electronically.
--- NOTE | 2017-09-11 15:52 | HHI.PR ---
Subjective Remarks Patient seen today around 1 PM. Says she is feeling a little better than yesterday. Reports abdominal discomfort slightly better. Denies any chest pain or shortness of breath. Denies nausea or vomiting. Still no bowel movement. Objective Vital Signs Date Time Temp Pulse Resp B/P (MAP) Pulse Ox O2 Delivery O2 Flow Rate FiO2 09/11/17 08:03 98.8 101 22 138/91 (107) 94 09/11/17 08:00 Nasal Cannula 4.00 09/11/17 05:55 98.2 98 18 140/89 (106) 93 09/11/17 04:00 Nasal Cannula 2.50 09/11/17 00:03 98.3 104 18 142/87 (105) 92 09/11/17 00:00 Nasal Cannula 2.50 09/10/17 20:00 Nasal Cannula 2.50 09/10/17 20:00 99.2 112 21 144/87 (106) 94 09/10/17 15:54 98.1 105 18 132/88 (103) 96 I/O 09/10/17 09/10/17 09/10/17 09/11/17 09/11/17 09/11/17 06:59 14:59 22:59 06:59 14:59 22:59 Intake Total 641 ml 1000 ml Output Total 550 ml 650 ml Balance 91 ml 350 ml Intake Oral 0 ml IV Total 641 ml 1000 ml Output Urine Total 450 ml Gastric Drainage Total 550 ml 200 ml # Bowel Movements 0 Result Diagram: 09/11/17 0609 09/11/17 0609 Objective Remarks GENERAL: Patient sitting up in bed. No acute distress. SKIN: Warm and dry. HEAD: Normocephalic. EYES: No scleral icterus. No injection or drainage. NECK: Supple, trachea midline. No JVD. CARDIOVASCULAR: Regular rate and rhythm without murmurs, gallops, or rubs. RESPIRATORY: Breath sounds equal bilaterally. No accessory muscle use. GASTROINTESTINAL: Abdomen soft, non-tender, nondistended. Hypoactive bowel sounds. MUSCULOSKELETAL: No cyanosis, or edema. BACK: Nontender without obvious deformity. No CVA tenderness. A/P Assessment and Plan 66 year-old female with //Partial small bowel obstruction CT abdomen noted and review by me with finding of abnormal bowel gas pattern with mild dilatation of multiple loops of proximal jejunum with air-fluid level Place NG tube to low intermittent suction Keep nothing by mouth, IV fluid hydration = Minimal improvement with decompression. Consult general surgery = Discussed with general surgery. Hold anticoagulation or possible surgical procedure in the coming days. Continue to monitor on NG tube to wall suction. //UTI Start Cipro 400 mg every 12 hours pending urine culture = Patient asymptomatic. Discontinue Cipro. //non anion gap Metabolic acidosis -From GI losses. = 2/2. Bicarbonate much improved. We'll discontinue bicarbonate. Continue to monitor. //Leukocytosis = 2/2. Leukocytosis 11.8, improved from admission. Likely secondary to stress. Continue to monitor. //Diabetes type 2 = 2/2. Hypoglycemia with glucose in the 80s. We'll start on D10 at 20 mL per hour. Also with normal saline maintenance fluids. Low-dose Sliding scale to be used while on D10 drip. //Hypokalemia. Potassium 3.2. Replaced. Continue to monitor. //Chronic kidney disease stage III Currently better than baseline, monitor BUN and creatinine //History of DVT and PE -hOld Eliquis. = If no surgical procedure, we'll need to restart full ac. //Diarrhea Check C. difficile PCR IV fluid hydration and Lactinex = No bowel movements. //atelectasis on chest x-ray. Likely secondary to abdominal distention. No respiratory complaints. IS and Acapella. //Hypertension Resume outpatient medications //COPD No current exacerbations; cont DuoNeb as needed //Other chronic medical conditions cont outpatient medications ////Hyperlipidemia Resume Lipitor. //DVT prophylaxis: Eliquis Discharge Planning Continued inpatient treatment. PT/OT ordered. Navin Salomon MD Sep 11, 2017 15:52
[2017-09-11 16:02] VITALS: BP 126/75; PULSE 106; RESP 20; TEMP 98.5; O2SAT 94
[2017-09-11] MEDS: POTASSIUM CHLOR 10 MEQ PREMIX 100 ML IV SCH ×3 (16:52→20:58)
[2017-09-11] MEDS: NS + KCL 20 MEQ INJ 1,000 ML IV SCH (16:52)
[2017-09-11] MEDS ORDERED: SODIUM CHLOR 0.45% 1000 ML INJ 1,000 ML IV SCH (17:45)
[2017-09-11] MEDS: DEXTROSE 10% INJ 1,000 ML IV SCH (19:08)
[2017-09-11 20:00] VITALS: BP 119/73; PULSE 102; RESP 18; TEMP 98.9; O2SAT 96
[2017-09-11] MEDS: ATORVASTATIN 80 MG TAB PO SCH (21:05)
[2017-09-12] VITALS: BP 100/65; PULSE 93; RESP 20; TEMP 98.2; O2SAT 95
[2017-09-12 04:00] VITALS: BP 105/70; PULSE 86; RESP 20; TEMP 99.1; O2SAT 93
[2017-09-12] MEDS: NS + KCL 20 MEQ INJ 1,000 ML IV SCH ×2 (04:54→16:39)
[2017-09-12] MEDS: KETOROLAC TROMETHAMINE 30 MG/ML (IVP) VIAL IV PUSH PRN ×3 (07:56→23:07)
[2017-09-12] MEDS: INSULIN ASPART SUPPLEMENTAL SCALE SQ SCH ×4 (08:00→20:29)
[2017-09-12 08:03] VITALS: BP 127/73; PULSE 88; RESP 21; TEMP 98.1; O2SAT 93
--- NOTE | 2017-09-12 08:37 | HHI.PR ---
Subjective Subjective Notes reports less abdominal pain but still sore. reports loose BM last night, also NG fell out and was replaced - got 800cc according to RN Objective Vitals/I&O Vital Signs Date Time Temp Pulse Resp B/P (MAP) Pulse Ox O2 Delivery O2 Flow Rate FiO2 09/12/17 08:03 98.1 88 21 127/73 (91) 93 09/11/17 20:00 Nasal Cannula 3.00 Labs Date/Time Source Procedure Growth Status 09/09/17 12:25 Urine Clean Catch Urine Culture - Final 50-100,000 CFU/ML MIXED GRAM POSITIVE... Complete Radiology Last 48 hours Impressions Abdomen X-Ray 09/10/17 0600 Signed Impressions: Service Date/Time: September 09:31 - CONCLUSION: Gaseous distention of multiple bowel loops. There appears to be more distention centrally within what appears to be small bowel loops. Rangel Bedoya MD Abdomen/Pelvis CT 09/09/17 1015 Signed Impressions: Service Date/Time: Saturday, September 09, 2017 10:32 - CONCLUSION: Abnormal bowel gas pattern with mild dilatation of multiple loops of proximal jejunum with air-fluid levels of concern for early or partial small bowel obstruction. Postsurgical changes are again noted with anastomosis. Flakito Underwood MD Abdomen X-Ray 09/09/17 0000 Signed Impressions: Service Date/Time: Saturday, September 09, 2017 14:10 - CONCLUSION: 1. Interval placement of nasogastric tube. 2. Nonspecific bowel gas pattern. Flaikto Underwood MD Narrative Exam abdomen slightly distended. BS present, mild tenderness. A/P Assessment and Plan PSBO vs ileus imaging shows air and contrast in colon by SBFT and KUB last night NG replaced last night and got 800cc out after being clamped all day pt reports large loose BM last night will observe NG output next 24 hours, if declines can consider removal and starting diet as bowels seem to be opening up. Caleb Cardona MD Sep 12, 2017 08:37
[2017-09-12] MEDS: SERTRALINE HCL 100 MG TAB PO SCH (08:51)
[2017-09-12] MEDS: SPIRONOLACTONE 50 MG TAB PO SCH (08:51)
[2017-09-12] MEDS: levETIRAcetam 500 MG TAB PO SCH ×2 (08:51→20:31)
[2017-09-12] MEDS: SODIUM CHLORIDE 0.9% FLUSH 10 ML FLUSH IV FLUSH SCH ×2 (08:52→20:31)
[2017-09-12] MEDS: LISINOPRIL 5 MG TAB PO SCH (08:52)
[2017-09-12] MEDS: POTASSIUM CHLOR 20 MEQ PREMIX 100 ML IV SCH ×2 (09:01→11:01)
[2017-09-12 09:10] LABS: AUTOMATED NEUTROPHIL # 6.6 TH/MM3 (1.8-7.7); BASOPHIL % 0.5 % (0.0-2.0); EOSINOPHIL # 0.4 TH/MM3 (0-0.4); EOSINOPHIL % 4.2 % (0.0-4.0); HEMATOCRIT 34.3 % (35.0-46.0); HEMOGLOBIN 11.4 GM/DL (11.6-15.3); LYMPH % 18.8 % (9.0-44.0); LYMPHOCYTE # 1.8 TH/MM3 (1.0-4.8); MEAN CELL VOLUME 84.4 FL (80.0-100.0); MEAN CORPUSCULAR HEMOGLOBIN 28.1 PG (27.0-34.0); MEAN CORPUSCULAR HGB CONC 33.3 % (32.0-36.0); MONO % 7.5 % (0.0-8.0); MONOCYTE # 0.7 TH/MM3 (0-0.9); PLATELET COUNT 330 TH/MM3 (150-450); RED BLOOD COUNT 4.07 MIL/MM3 (4.00-5.30); RED CELL DISTRIBUTION WIDTH 14.2 % (11.6-17.2); WHITE BLOOD COUNT 9.5 TH/MM3 (4.0-11.0)
[2017-09-12 09:12] LABS: ALBUMIN 2.6 GM/DL (3.4-5.0); BICARBONATE 32.9 MEQ/L (21.0-32.0); CALCIUM 8.5 MG/DL (8.5-10.1); CREATININE 1.02 MG/DL (0.50-1.00); MAGNESIUM 2.1 MG/DL (1.5-2.5); PHOSPHORUS 2.9 MG/DL (2.5-4.9)
[2017-09-12 12:03] VITALS: BP 112/73; PULSE 92; RESP 20; TEMP 97.7; O2SAT 97
--- NOTE | 2017-09-12 15:16 | HHI.PR ---
Subjective Remarks Large bowel movement this morning. She says her abdominal discomfort is better. Reports nausea is better. Denies any chest pain or shortness of breath. She would like to try to eat Objective Vital Signs Date Time Temp Pulse Resp B/P (MAP) Pulse Ox O2 Delivery O2 Flow Rate FiO2 09/12/17 12:03 97.7 92 20 112/73 (86) 97 09/12/17 08:03 98.1 88 21 127/73 (91) 93 09/12/17 08:00 Nasal Cannula 3.00 09/12/17 08:00 Nasal Cannula 3.00 09/12/17 04:00 99.1 86 20 105/70 (82) 93 09/12/17 00:00 98.2 93 20 100/65 (77) 95 09/11/17 20:00 Nasal Cannula 3.00 09/11/17 20:00 98.9 102 18 119/73 (88) 96 09/11/17 16:02 98.5 106 20 126/75 (92) 94 I/O 09/11/17 09/11/17 09/11/17 09/12/17 09/12/17 09/12/17 07:00 15:00 23:00 07:00 15:00 23:00 Intake Total 1000 ml 600 ml 1353 ml Output Total 650 ml 800 ml Balance 350 ml 600 ml 553 ml Intake Oral 0 ml 0 ml 50 ml IV Total 1000 ml 600 ml 1303 ml Output Urine Total 450 ml Gastric Drainage Total 200 ml 800 ml # Voids 2 # Bowel Movements 0 0 Result Diagram: 09/12/17 0811 09/12/17 0811 Objective Remarks GENERAL: Patient sitting up in chair No acute distress. SKIN: Warm and dry. HEAD: Normocephalic. EYES: No scleral icterus. No injection or drainage. NECK: Supple, trachea midline. No JVD. CARDIOVASCULAR: Regular rate and rhythm without murmurs, gallops, or rubs. RESPIRATORY: Breath sounds equal bilaterally. No accessory muscle use. GASTROINTESTINAL: Abdomen soft, non-tender, nondistended. +bs MUSCULOSKELETAL: No cyanosis, or edema. BACK: Nontender without obvious deformity. No CVA tenderness. A/P Assessment and Plan 66 year-old female with //Partial small bowel obstruction CT abdomen noted and review by me with finding of abnormal bowel gas pattern with mild dilatation of multiple loops of proximal jejunum with air-fluid level Place NG tube to low intermittent suction Keep nothing by mouth, IV fluid hydration = Minimal improvement with decompression. Consult general surgery = Discussed with general surgery. Hold anticoagulation or possible surgical procedure in the coming days. Continue to monitor on NG tube to wall suction. = 2/3. Positive bowel movement. Clamping NG tube. Place on full liquid diet. Check residual tomorrow. Appreciate general surgery assistance. //UTI Start Cipro 400 mg every 12 hours pending urine culture = Patient asymptomatic. Discontinue Cipro. //non anion gap Metabolic acidosis -From GI losses. = 2/2. Bicarbonate much improved. We'll discontinue bicarbonate. Continue to monitor. //Leukocytosis = 2/2. Leukocytosis 11.8, improved from admission. Likely secondary to stress. Continue to monitor. //Diabetes type 2 = 2/2. Hypoglycemia with glucose in the 80s. We'll start on D10 at 20 mL per hour. Also with normal saline maintenance fluids. Low-dose Sliding scale to be used while on D10 drip. = wbg acceptable. Continue D10 for now until tolerating diet. //Hypokalemia. Potassium 3.2. Replaced. Continue to monitor. = Resolved after replacement //Chronic kidney disease stage III Currently better than baseline, monitor BUN and creatinine //History of DVT and PE -hOld Eliquis. = If no surgical procedure, we'll need to restart full ac. = 2/3. Last dose of Eliquis 09/10. Will start patient on heparin 5000 units subcutaneous 3 times a day. //Diarrhea Check C. difficile PCR IV fluid hydration and Lactinex =no diarrhea now //atelectasis on chest x-ray. Likely secondary to abdominal distention. No respiratory complaints. Cont IS and Acapella. //Hypertension BP acceptable. cont outpatient medications //COPD No current exacerbations; cont DuoNeb as needed //Other chronic medical conditions cont outpatient medications ////Hyperlipidemia Resume Lipitor. //DVT prophylaxis: holding Eliquis. hep sq Discharge Planning Continued inpatient treatment. PT/OT ordered. pending clearance from gen surgery - probably tomorrow 09/13 Navin Salomon MD Sep 12, 2017 15:16
[2017-09-12 16:02] VITALS: BP 113/66; PULSE 90; RESP 21; TEMP 98.3; O2SAT 98
[2017-09-12] MEDS: HEPARIN SODIUM - SQ 10,000 UNITS/ML VIAL SQ SCH ×2 (16:04→23:07)
[2017-09-12 20:00] VITALS: BP 109/65; PULSE 96; RESP 18; TEMP 98.6; O2SAT 96
[2017-09-12] MEDS: ATORVASTATIN 80 MG TAB PO SCH (20:31)
[2017-09-12] MEDS: DEXTROSE 10% INJ 1,000 ML IV SCH (23:14)
[2017-09-13] VITALS: BP 112/63; PULSE 82; RESP 16; TEMP 98.7; O2SAT 98
[2017-09-13 04:00] VITALS: BP 168/57; PULSE 71; RESP 18; TEMP 97.5; O2SAT 99
[2017-09-13] MEDS: NS + KCL 20 MEQ INJ 1,000 ML IV SCH (04:38)
[2017-09-13 07:37] LABS: BICARBONATE 29.3 MEQ/L (21.0-32.0); CALCIUM 8.2 MG/DL (8.5-10.1); CREATININE 0.96 MG/DL (0.50-1.00)
[2017-09-13] MEDS: INSULIN ASPART SUPPLEMENTAL SCALE SQ SCH (08:00)
[2017-09-13 08:04] VITALS: BP 140/84; PULSE 64; RESP 21; TEMP 97.9; O2SAT 94
[2017-09-13] MEDS ORDERED: GABA100C4 PO (08:55)
[2017-09-13] MEDS ORDERED: SPIR50TA PO (08:55)
[2017-09-13] MEDS ORDERED: AZIT250T3 PO (08:55)
--- NOTE | 2017-09-13 09:04 | HHI.PR ---
Subjective Remarks She says she is feeling well today. Denies any chest pain or shortness of breath. She does report dull left ear pain, with decreased auditory acuity in the left ear. She reports sinus stuffiness ever since NG tube was placed. Small bowel movement last night. Denies any abdominal pain. Objective Vital Signs Date Time Temp Pulse Resp B/P (MAP) Pulse Ox O2 Delivery O2 Flow Rate FiO2 09/13/17 04:00 97.5 71 18 168/57 (94) 99 09/13/17 00:00 98.7 82 16 112/63 (79) 98 09/12/17 20:00 98.6 96 18 109/65 (80) 96 09/12/17 19:30 Nasal Cannula 3.00 09/12/17 16:02 98.3 90 21 113/66 (82) 98 09/12/17 12:03 97.7 92 20 112/73 (86) 97 I/O 09/12/17 09/12/17 09/12/17 09/13/17 09/13/17 09/13/17 07:00 15:00 23:00 07:00 15:00 23:00 Intake Total 1353 ml 1821 ml Output Total 800 ml Balance 553 ml 1821 ml Intake Oral 50 ml IV Total 1303 ml 1821 ml Gastric Drainage Total 800 ml # Voids 3 # Bowel Movements 1 2 Result Diagram: 09/12/17 0811 09/13/17 0640 Objective Remarks GENERAL: Patient sitting up in bed. No acute distress. SKIN: Warm and dry. HEAD: Normocephalic. Left OM with effusion EYES: No scleral icterus. No injection or drainage. NECK: Supple, trachea midline. No JVD. CARDIOVASCULAR: Regular rate and rhythm without murmurs, gallops, or rubs. RESPIRATORY: Breath sounds equal bilaterally. No accessory muscle use. GASTROINTESTINAL: Abdomen soft, non-tender, nondistended. +bs MUSCULOSKELETAL: No cyanosis, or edema. BACK: Nontender without obvious deformity. No CVA tenderness. A/P Assessment and Plan 66 year-old female with //Partial small bowel obstruction CT abdomen noted and review by me with finding of abnormal bowel gas pattern with mild dilatation of multiple loops of proximal jejunum with air-fluid level Place NG tube to low intermittent suction Keep nothing by mouth, IV fluid hydration = Minimal improvement with decompression. Consult general surgery = Discussed with general surgery. Hold anticoagulation or possible surgical procedure in the coming days. Continue to monitor on NG tube to wall suction. = 2/3. Positive bowel movement. Clamping NG tube. Place on full liquid diet. Check residual tomorrow. Appreciate general surgery assistance. = 2/4. Resolved. Discharge home. Stop all narcotics. //Left otitis media. = Effusion on exam with pain. Secondary to NG tube. Start Z-Jett. //non anion gap Metabolic acidosis -From GI losses. = 2/2. Bicarbonate much improved. We'll discontinue bicarbonate. Continue to monitor. = Resolved. //Leukocytosis = 2/2. Leukocytosis 11.8, improved from admission. Likely secondary to stress. Continue to monitor. = Resolved. //Diabetes type 2 = 2/2. Hypoglycemia with glucose in the 80s. We'll start on D10 at 20 mL per hour. Also with normal saline maintenance fluids. Low-dose Sliding scale to be used while on D10 drip. = wbg acceptable. Continue D10 for now until tolerating diet. //Hypokalemia. Potassium 3.2. Replaced. Continue to monitor. = Resolved after replacement //Chronic kidney disease stage III Currently better than baseline, monitor BUN and creatinine //History of DVT and PE -hOld Eliquis. = If no surgical procedure, we'll need to restart full ac. = 2/3. Last dose of Eliquis 09/10. Will start patient on heparin 5000 units subcutaneous 3 times a day. = Restart. //Diarrhea Check C. difficile PCR IV fluid hydration and Lactinex =no diarrhea now //atelectasis on chest x-ray. Likely secondary to abdominal distention. No respiratory complaints. Cont IS and Acapella. //Hypertension BP acceptable. cont outpatient medications //COPD No current exacerbations; cont DuoNeb as needed //Other chronic medical conditions cont outpatient medications ////Hyperlipidemia Resume Lipitor. //DVT prophylaxis: holding Eliquis. hep sq Discharge Planning Discharge home. Z-Jett for left-sided otitis media following NG tube. Follow-up primary care Navin Salomon MD Sep 13, 2017 09:04
--- NOTE | 2017-09-13 09:09 | HHI.DS ---
Discharge Summary Admission Date Sep 09, 2017 at 13:10 Discharge Date: Sep 13, 2017 Admitting Diagnosis Vomiting, partial small bowel obstruction (1) Partial small bowel obstruction ICD Code: K56.600 - Partial intestinal obstruction, unspecified as to cause Status: Acute (2) Otitis media ICD Code: H66.90 - Otitis media, unspecified, unspecified ear (3) SHARIF (acute kidney injury) ICD Code: N17.9 - Acute kidney injury Status: Acute Procedures No invasive procedures Brief History - From Admission 66-year-old female with a history of hypertension, diabetes, PE, DVT and prior history of abdominal surgeries presented to the ED for evaluation of an acute onset of nausea, emesis, and diarrhea along with abdominal pain rated 10/10 in intensity [address] abdomen ordering the ED revealed abnormal bowel gas pattern with multiple dilatation of multiple loops of proximal jejunum with air- fluid level and NG tube was placed in ED. She has no GI bleed and denies any chest pain however short of breath. Although she is afebrile however she was tachycardic. CBC/BMP: 09/12/17 0811 09/13/17 0640 Significant Findings Laboratory Tests Test 09/11/17 06:09 09/12/17 08:11 09/13/17 06:40 White Blood Count 11.8 TH/MM3 (4.0-11.0) Monocytes (%) (Auto) 9.8 % (0.0-8.0) Monocytes # (Auto) 1.2 TH/MM3 (0-0.9) Creatinine 1.03 MG/DL (0.50-1.00) 1.02 MG/DL (0.50-1.00) Albumin 2.8 GM/DL (3.4-5.0) 2.6 GM/DL (3.4-5.0) Potassium Level 3.2 MEQ/L (3.5-5.1) Estimat Glomerular Filtration Rate 65 ML/MIN (>89) 66 ML/MIN (>89) 71 ML/MIN (>89) Hemoglobin 11.4 GM/DL (11.6-15.3) Hematocrit 34.3 % (35.0-46.0) Eosinophils (%) (Auto) 4.2 % (0.0-4.0) Random Glucose 113 MG/DL (74-106) 110 MG/DL (74-106) Carbon Dioxide Level 32.9 MEQ/L (21.0-32.0) Calcium Level 8.2 MG/DL (8.5-10.1) Imaging Last Impressions Abdomen X-Ray 09/11/17 0600 Signed Impressions: Service Date/Time: Monday, September 11, 2017 06:40 - CONCLUSION: No dilated loops of small bowel. Gaseous distention of the colon without gross dilatation. Suman Washington Jr., MD Small Bowel X-Ray 09/11/17 0000 Signed Impressions: Service Date/Time: Monday, September 11, 2017 10:51 - CONCLUSION: Unremarkable small bowel examination. Calvin Patten MD Chest X-Ray 09/10/17 0000 Signed Impressions: Service Date/Time: September 16:46 - CONCLUSION: Bibasilar atelectasis versus infiltrates. Suman Washington Jr., MD Abdomen/Pelvis CT 09/09/17 1015 Signed Impressions: Service Date/Time: Saturday, September 09, 2017 10:32 - CONCLUSION: Abnormal bowel gas pattern with mild dilatation of multiple loops of proximal jejunum with air-fluid levels of concern for early or partial small bowel obstruction. Postsurgical changes are again noted with anastomosis. Flakito Underwood MD Hospital Course Patient was found to have small bowel obstruction on imaging. Gen. surgery was consulted. NG tube was placed with significant output. Patient had large bowel movement on 09/12. NG tube was discontinued, patient tolerating diet. Patient also presented with leukocytosis likely secondary to stress, which resolved. Patient also presented with acute kidney injury with creatinine 1.6, likely secondary to dehydration, which resolved. sHe did develop left otitis media following NG tube placement, will be sent home on antibiotics. Patient had Eliquis held while in the hospital, but this will be restarted. Decreased dose of spironolactone to go home, however can be increased as outpatient follow -up with primary care. Patient happy to be going home. for Problem-based summary from most recent progress note, please see below. 66 year-old female with //Partial small bowel obstruction CT abdomen noted and review by me with finding of abnormal bowel gas pattern with mild dilatation of multiple loops of proximal jejunum with air-fluid level Place NG tube to low intermittent suction Keep nothing by mouth, IV fluid hydration = Minimal improvement with decompression. Consult general surgery = Discussed with general surgery. Hold anticoagulation or possible surgical procedure in the coming days. Continue to monitor on NG tube to wall suction. = 2/3. Positive bowel movement. Clamping NG tube. Place on full liquid diet. Check residual tomorrow. Appreciate general surgery assistance. = 09/13. Resolved. Discharge home. Stop all narcotics. //Left otitis media. = Effusion on exam with pain. Secondary to NG tube. Start Z-Jett. //non anion gap Metabolic acidosis -From GI losses. = 2/. Bicarbonate much improved. We'll discontinue bicarbonate. Continue to monitor. = Resolved. //Leukocytosis = 2/. Leukocytosis 11.8, improved from admission. Likely secondary to stress. Continue to monitor. = Resolved. //Diabetes type 2 = 2/2. Hypoglycemia with glucose in the 80s. We'll start on D10 at 20 mL per hour. Also with normal saline maintenance fluids. Low-dose Sliding scale to be used while on D10 drip. = wbg acceptable. Continue D10 for now until tolerating diet. //Hypokalemia. Potassium 3.2. Replaced. Continue to monitor. = Resolved after replacement //Chronic kidney disease stage III Currently better than baseline, monitor BUN and creatinine //History of DVT and PE -hOld Eliquis. = If no surgical procedure, we'll need to restart full ac. = 2/3. Last dose of Eliquis 09/10. Will start patient on heparin 5000 units subcutaneous 3 times a day. = Restart. //Diarrhea Check C. difficile PCR IV fluid hydration and Lactinex =no diarrhea now //atelectasis on chest x-ray. Likely secondary to abdominal distention. No respiratory complaints. Cont IS and Acapella. //Hypertension BP acceptable. cont outpatient medications //COPD No current exacerbations; cont DuoNeb as needed //Other chronic medical conditions cont outpatient medications ////Hyperlipidemia Resume Lipitor. //DVT prophylaxis: holding Eliquis. hep sq Discharge Planning Discharge home. Z-Jett for left-sided otitis media following NG tube. Follow-up primary care Pt Condition on Discharge: Good Discharge Disposition: Discharge Home Discharge Time: > 30 minutes Discharge Instructions DIET: Follow Instructions for: Diabetic Diet Activities you can perform: Regular-No Restrictions Follow up Referrals: PCP Follow-up - 1 Week New Medications: Azithromycin (Azithromycin) 250 Mg Tab 250 MG PO DIRECTED for Infection, #6 TAB 0 Refills Take 2 tabs (500 mg) on day 1 then 1 tab daily x 4 days. Changed Medications: Gabapentin (Gabapentin) 100 Mg Cap 200 MG PO TID for Pain Management, #90 CAP 0 Refills (Changed from: 300 MG) Spironolactone (Spironolactone) 50 Mg Tab 25 MG PO DAILY for water pill, #30 TAB 0 Refills (Changed from: 50 MG) Continued Medications: Albuterol 8.5 GM Inh (Proair Hfa 8.5 GM Inh) 90 Mcg/Act Aer 2 PUFF INH Q4-6H PRN for SHORTNESS OF BREATH, #1 INHALER 0 Refills 108 mcg/actuation Alprazolam (Xanax) 0.5 Mg Tab 0.5 MG PO BID PRN for ANXIETY, TAB 0 Refills Apixaban (Eliquis) 5 Mg Tab 5 MG PO BID for Blood Clot Prevention, #60 TAB 0 Refills Atorvastatin (Atorvastatin) 80 Mg Tab 80 MG PO HS for Cholesterol Management, #30 TAB 0 Refills Cetirizine (Cetirizine) 10 Mg Tab 10 MG PO DAILY for Allergies, TAB 0 Refills Cholecalciferol (Vitamin D3) 2,000 Unit Cap 2000 UNITS PO DAILY for Nutritional Supplement, #1 BOTTLE 0 Refills Cyclobenzaprine (Flexeril) 10 Mg Tab 10 MG PO TID for Muscle Spasm, #90 TAB 0 Refills Insulin Aspart Inj (Novolog Flexpen Inj) 300 Unit/3 Ml Pen 1 UNITS SQ for Blood Sugar Management, #1 PEN 0 Refills Insulin Glargine Inj (Lantus Inj) 1,000 Unit/10 Ml Vial 32 UNITS SQ HS for Blood Sugar Management, VIAL 0 Refills Levetiracetam (Keppra) 500 Mg Tab 500 MG PO BID for Control Seizures, #60 TAB 0 Refills Lisinopril (Lisinopril) 2.5 Mg Tab 2.5 MG PO DAILY, #30 TAB 0 Refills Nitroglycerin SL (Nitrostat SL) 0.4 Mg Subl 0.4 MG SL DIRECTED PRN for CHEST PAIN, #100 TAB.SL 0 Refills 1 tablet under the tongue as needed for chest pain. Repeat every 5 minutes for a total of 3 DOSES or call 911 if NO relief. Ropinirole (Ropinirole) 0.5 Mg Tab 0.5 MG PO HS, #30 TAB 0 Refills Sertraline (Sertraline) 100 Mg Tab 100 MG PO DAILY, #30 TAB 0 Refills Vitamin E (Vitamin E) 200 Unit Cap 400 UNITS PO DAILY for Nutritional Supplement, CAP 0 Refills [Linden Xl] () 2 CAP PO DAILY Discontinued Medications: Hydrocodone/Acetaminophen (Hydrocodone-Acetamin 10-325 mg) 10 Mg-325 Mg Tablet 1 TAB PO TID Meloxicam (Meloxicam) 7.5 Mg Tab 7.5 MG PO DAILY for Arthritis Pain, TAB 0 Refills Navin Salomon MD Sep 13, 2017 09:09
[2017-09-13] MEDS: levETIRAcetam 500 MG TAB PO SCH (09:10)
[2017-09-13] MEDS: SERTRALINE HCL 100 MG TAB PO SCH (09:10)
[2017-09-13] MEDS: HEPARIN SODIUM - SQ 10,000 UNITS/ML VIAL SQ SCH (09:11)
[2017-09-13] MEDS: SPIRONOLACTONE 50 MG TAB PO SCH (09:11)
[2017-09-13] MEDS: LISINOPRIL 5 MG TAB PO SCH (09:11)
[2017-09-13] MEDS ORDERED: APIXABAN 5 MG TABLET PO ONE (09:15)
[2017-09-13] MEDS ORDERED: APIXABAN 5 MG TABLET PO SCH (21:00)
== END 2017-09-13 14:55 | disposition home or self-care (01) | DRG 389 ==
LOC: NEPE 09:36 → NEDA 13:10 → N04A 16:06
PROVIDERS: ADMIT Internal Medicine; ATTEND Internal Medicine
PROC: 0D9670Z Drainage of Stomach with Drainage Device, Via Natural or Artificial Opening (ICD-10-PCS; principal; 2017-09-09)
DX: K56.600 Partial intestinal obstruction, unspecified as to cause (principal); I69.354 Hemiplegia and hemiparesis following cerebral infarction affecting left non-dominant side; E87.2 Acidosis; E11.22 Type 2 diabetes mellitus with diabetic chronic kidney disease; N17.9 Acute kidney failure, unspecified; N18.3 Chronic kidney disease, stage 3 (moderate); J98.11 Atelectasis; E11.649 Type 2 diabetes mellitus with hypoglycemia without coma; R00.0 Tachycardia, unspecified; M19.90 Unspecified osteoarthritis, unspecified site; F32.9 Major depressive disorder, single episode, unspecified; F41.9 Anxiety disorder, unspecified; J44.9 Chronic obstructive pulmonary disease, unspecified; I25.10 Atherosclerotic heart disease of native coronary artery without angina pectoris; K21.9 Gastro-esophageal reflux disease without esophagitis; I12.9 Hypertensive chronic kidney disease with stage 1 through stage 4 chronic kidney disease, or unspecified chronic kidney disease; G47.30 Sleep apnea, unspecified; E78.5 Hyperlipidemia, unspecified; E86.0 Dehydration; H66.92 Otitis media, unspecified, left ear; E87.6 Hypokalemia; Z86.718 Personal history of other venous thrombosis and embolism; I25.2 Old myocardial infarction; Z86.711 Personal history of pulmonary embolism; Z87.891 Personal history of nicotine dependence; Z79.4 Long term (current) use of insulin
CPT/HCPCS: 43752; 71045; 74018; 74019; 74176; 74250; 76937; 80048; 80053; 80069; 80177; 81001; 82010; 82805; 82948; 83690; 83735; 84484; 85025; 85610; 87086; 93005; 94150; 94667; 94668; 96361; 96374; J0744; J1644; J1885; J2405; J3480; J7030; Q9963

== ENCOUNTER 2017-09-20 14:22 | Emergency (ER) | payer OTHER, MEDICAID ==
[~2017-09-20] VITALS: Ht 149.9 cm; Wt 65.0 kg
[~2017-09-20 14:22] MED LIST changes: +AZIT250T3 PO; -HYDR-3583 PO; -MELO7.5T27 PO; +OMEGA XL PO
[2017-09-20 14:34] VITALS: BP 119/61; PULSE 126; RESP 18; TEMP 98; O2SAT 95
[2017-09-20] MEDS ORDERED: INSULIN ASPART 1,000 UNITS/10 ML VIAL SQ ONE (14:45)
[2017-09-20] MEDS ORDERED: SODIUM CHLOR 0.9% 1000 ML INJ 1,000 ML IV ONE (14:45)
--- NOTE | 2017-09-20 14:59 | PD ---
HPI Chief Complaint: General Weakness Time Seen by Provider: 14:38 Travel History International Travel<30 days: No Contact w/Intl Traveler<30days: No Traveled to known affect area: No History of Present Illness HPI This 66-year-old woman who presents to the emergency department complaining of feeling weak. She reports that her children called the ambulance today because she was falling asleep while they were trying to feed her. She has no complaints. She states she was discharged hospital about a week ago after being admitted for partial small bowel obstruction. She denies any other complaints. History Past Medical History Narrative Medical Diabetes History of PE, DVT, on Eliquis CAD, history of [place] Hypertension Hyperlipidemia A. fib History of CVA with residual weakness Anxiety COPD PNEUMOCCOCAL Vaccine (Year): 3 Menopausal: Yes Social History Alcohol Use: No Tobacco Use: No (quit over a year ago) Allergies-Medications (Allergen,Severity, Reaction): Coded Allergies: iodine (Unverified Allergy, Severe, rash, 09/20/17) latex (Unverified Allergy, Severe, RASH, 09/20/17) penicillin G (Unverified Allergy, Severe, SWELLING,HIVES, 09/20/17) potassium iodide (Unverified Allergy, Severe, rash, 09/20/17) povidone-iodine (Unverified Allergy, Severe, rash, 09/20/17) sodium iodide (Unverified Allergy, Severe, rash, 09/20/17) sodium iodide (Unverified Allergy, Severe, rash, 09/20/17) Reported Meds & Prescriptions Reported Meds & Active Scripts Active Azithromycin 250 Mg Tab 250 Mg PO DIRECTED Take 2 tabs (500 mg) on day 1 then 1 tab daily x 4 days. Spironolactone 50 Mg Tab 25 Mg PO DAILY Gabapentin 100 Mg Cap 200 Mg PO TID Reported [[place]um[place] Xl] 2 Cap PO DAILY Flexeril (Cyclobenzaprine HCl) 10 Mg Tab 10 Mg PO TID Vitamin D3 (Cholecalciferol) 2,000 Unit Cap 2,000 Units PO DAILY Vitamin E 200 Unit Cap 400 Units PO DAILY Lisinopril 2.5 Mg Tab 2.5 Mg PO DAILY Cetirizine (Cetirizine HCl) 10 Mg Tab 10 Mg PO DAILY Eliquis (Apixaban) 5 Mg Tab 5 Mg PO BID Sertraline (Sertraline HCl) 100 Mg Tab 100 Mg PO DAILY Ropinirole 0.5 Mg Tab 0.5 Mg PO HS Nitrostat SL (Nitroglycerin) 0.4 Mg Subl 0.4 Mg SL DIRECTED PRN 1 tablet under the tongue as needed for chest pain. Repeat every 5 minutes for a total of 3 DOSES or call 911 if NO relief. Keppra (Levetiracetam) 500 Mg Tab 500 Mg PO BID Lantus Inj (Insulin Glargine) 1,000 Unit/10 Ml Vial 32 Units SQ HS Novolog Flexpen Inj (Insulin Aspart) 300 Unit/3 Ml Pen 1 Units SQ Atorvastatin (Atorvastatin Calcium) 80 Mg Tab 80 Mg PO HS Xanax (Alprazolam) 0.5 Mg Tab 0.5 Mg PO BID PRN Proair Hfa 8.5 GM Inh (Albuterol Sulfate) 90 Mcg/Act Aer 2 Puff INH Q4-6H PRN 108 mcg/actuation Review of Systems Except as stated in HPI: all other systems reviewed are Neg Physical Exam Narrative GENERAL: 66-year-old woman, no acute distress. SKIN: Focused skin assessment warm/dry. HEAD: Atraumatic. Normocephalic. EYES: Pupils equal and round. No scleral icterus. No injection or drainage. ENT: No nasal bleeding or discharge. Mucous membranes pink and moist. NECK: Trachea midline. No JVD. CARDIOVASCULAR: Regular rate and rhythm. No murmur appreciated. RESPIRATORY: No accessory muscle use. Clear to auscultation. Breath sounds equal bilaterally. GASTROINTESTINAL: Abdomen soft, non-tender, nondistended. Hepatic and splenic margins not palpable. MUSCULOSKELETAL: No obvious deformities. No clubbing. No cyanosis. No edema. NEUROLOGICAL: Slightly decreased alertness. No obvious cranial nerve deficits. Motor grossly within normal limits. Normal speech. PSYCHIATRIC: Appropriate mood and affect; insight and judgment normal. Data Data Last Documented VS Vital Signs Date Time Temp Pulse Resp B/P (MAP) Pulse Ox O2 Delivery O2 Flow Rate FiO2 09/20/17 18:01 101 18 133/66 (88) 97 Room Air 09/20/17 14:34 98.0 Orders Orders Complete Blood Count With Diff (09/20/17 14:38) Comprehensive Metabolic Panel (09/20/17 14:38) Urinalysis - C+S If Indicated (09/20/17 14:38) Iv Access Insert/Monitor (09/20/17 14:38) Electrocardiogram (09/20/17 ) Troponin I (09/20/17 14:38) Sodium Chlor 0.9% 1000 Ml Inj (Ns 1000 M (09/20/17 14:45) Insulin Aspart Inj (Novolog Inj) (09/20/17 14:45) Urine Culture (09/20/17 17:37) Labs Laboratory Tests Test 09/20/17 14:59 09/20/17 17:37 White Blood Count 10.4 TH/MM3 Red Blood Count 3.98 MIL/MM3 Hemoglobin 11.0 GM/DL Hematocrit 33.7 % Mean Corpuscular Volume 84.7 FL Mean Corpuscular Hemoglobin 27.7 PG Mean Corpuscular Hemoglobin Concent 32.7 % Red Cell Distribution Width 14.3 % Platelet Count 421 TH/MM3 Mean Platelet Volume 7.5 FL Neutrophils (%) (Auto) 56.2 % Lymphocytes (%) (Auto) 29.8 % Monocytes (%) (Auto) 8.1 % Eosinophils (%) (Auto) 5.0 % Basophils (%) (Auto) 0.9 % Neutrophils # (Auto) 5.8 TH/MM3 Lymphocytes # (Auto) 3.1 TH/MM3 Monocytes # (Auto) 0.8 TH/MM3 Eosinophils # (Auto) 0.5 TH/MM3 Basophils # (Auto) 0.1 TH/MM3 CBC Comment DIFF FINAL Differential Comment Blood Urea Nitrogen 15 MG/DL Creatinine 1.49 MG/DL Random Glucose 136 MG/DL Total Protein 7.3 GM/DL Albumin 3.1 GM/DL Calcium Level 8.6 MG/DL Alkaline Phosphatase 226 U/L Aspartate Amino Transf (AST/SGOT) 19 U/L Alanine Aminotransferase (ALT/SGPT) 38 U/L Total Bilirubin 0.2 MG/DL Sodium Level 140 MEQ/L Potassium Level 4.0 MEQ/L Chloride Level 107 MEQ/L Carbon Dioxide Level 24.0 MEQ/L Anion Gap 9 MEQ/L Estimat Glomerular Filtration Rate 43 ML/MIN Troponin I LESS THAN 0.02 NG/ML Urine Color YELLOW Urine Turbidity CLEAR Urine pH 6.0 Urine Specific Reading 1.009 Urine Protein NEG mg/dL Urine Glucose (UA) NEG mg/dL Urine Ketones NEG mg/dL Urine Occult Blood NEG Urine Nitrite NEG Urine Bilirubin NEG Urine Urobilinogen LESS THAN 2.0 MG/DL Urine Leukocyte Esterase LARGE Urine RBC 3 /hpf Urine WBC 20 /hpf Urine Squamous Epithelial Cells 4 /hpf Urine Bacteria FEW /hpf Microscopic Urinalysis Comment CULTURE INDICATED MDM Medical Decision Making Medical Screen Exam Complete: Yes Emergency Medical Condition: Yes Interpretation(s) My review of EKG: Sinus tachycardia rate of 120, normal axis, normal intervals, small voltage, no definite evidence of acute ischemia. LABS: CBC is remarkable for mild anemia. CMP generally unremarkable. Troponin negative. UA with trace pyuria. 20 white blood cells. Differential Diagnosis Weakness, infection, hyperglycemia, electrolyte normality, other Narrative Course This 66-year-old woman who presents to the emergency department complaining of generalized weakness. Looks overall well. Obviously B. Denies taking any sedating medications. Blood sugars a little bit elevated. Will check labs, urine, IV fluid, insulin. Heart rate elevated, possibly dehydration, will monitor. FINAL: Looks well. UA shows some white blood cells could suggest UTI is contributing. Will treat. Recommend outpatient follow-up. Diagnosis Primary Impression: UTI (urinary tract infection) Additional Impression: Weakness Additional Instructions: Take Keflex as prescribed. Drink plenty fluids to stay well hydrated. Follow-up with her primary doctor in the next 2-4 days. Return to the emergency department for any new or worsening symptoms. Med/Other Pt SpecificInfo: Prescription(s) given Scripts Cephalexin (Keflex) 500 Mg Cap 500 MG PO Q8H for Infection, #30 CAP 0 Refills Prov: Adrian Owen MD 09/20/17 Disposition: 01 DISCHARGE HOME Condition: Stable Adrian Owen MD Sep 20, 2017 14:59
[2017-09-20 15:31] VITALS: BP 117/67; PULSE 113; RESP 20; O2SAT 98
[2017-09-20 15:43] LABS: AUTOMATED NEUTROPHIL # 5.8 TH/MM3 (1.8-7.7); BASOPHIL # 0.1 TH/MM3 (0-0.2); BASOPHIL % 0.9 % (0.0-2.0); EOSINOPHIL # 0.5 TH/MM3 (0-0.4); HEMATOCRIT 33.7 % (35.0-46.0); LYMPH % 29.8 % (9.0-44.0); LYMPHOCYTE # 3.1 TH/MM3 (1.0-4.8); MEAN CELL VOLUME 84.7 FL (80.0-100.0); MEAN CORPUSCULAR HEMOGLOBIN 27.7 PG (27.0-34.0); MEAN CORPUSCULAR HGB CONC 32.7 % (32.0-36.0); MEAN PLATELET VOLUME 7.5 FL (7.0-11.0); MONO % 8.1 % (0.0-8.0); MONOCYTE # 0.8 TH/MM3 (0-0.9); NEUT % 56.2 % (16.0-70.0); PLATELET COUNT 421 TH/MM3 (150-450); RED BLOOD COUNT 3.98 MIL/MM3 (4.00-5.30); RED CELL DISTRIBUTION WIDTH 14.3 % (11.6-17.2); WHITE BLOOD COUNT 10.4 TH/MM3 (4.0-11.0)
[2017-09-20 15:55] LABS: ALBUMIN 3.1 GM/DL (3.4-5.0); AST (GOT) 19 U/L (15-37); BLOOD UREA NITROGEN 15 MG/DL (7-18); CALCIUM 8.6 MG/DL (8.5-10.1); CHLORIDE 107 MEQ/L (98-107); CREATININE 1.49 MG/DL (0.50-1.00); GLOMERULAR FILTRATION RATE 43 ML/MIN (>89); GLUCOSE,RANDOM 136 MG/DL (74-106); SODIUM (NA) 140 MEQ/L (136-145)
[2017-09-20 16:00] LABS: ALKALINE PHOSPHATASE 226 U/L (45-117); ALT (GPT) 38 U/L (10-53); TOTAL BILIRUBIN ADULT 0.2 MG/DL (0.2-1.0); TOTAL PROTEIN 7.3 GM/DL (6.4-8.2); TROPONIN I LESS THAN 0.02 NG/ML (0.02-0.05)
[2017-09-20 18:01] VITALS: BP_SYST 133; BP_DIAS 6; BP_DIAS 66; PULSE 101; RESP 18; O2SAT 97
[2017-09-20 18:07] LABS: BACTERIA, URINE FEW /hpf; BILIRUBIN, URINE NEG (NEG); BLOOD, URINE NEG (NEG); GLUCOSE,URINE NEG (NEG); KETONE, URINE NEG (NEG); NITRITE,URINE NEG (NEG); SQUAMOUS EPITHELIAL CELL URINE 4 /hpf (0-5); URINE COLOR YELLOW (YELLW/STRAW); URINE LEUKOCYTE ESTERASE LARGE (NEG)
[2017-09-20] MEDS ORDERED: CEPH-460 PO (18:18)
--- NOTE | 2017-09-21 11:08 | EKG ---
Date Performed: 09/20/2017 Time Performed: 14:47:28 PTAGE: 66 years EKG: SINUS TACHYCARDIA LOW QRS VOLTAGE IN PRECORDIAL LEADS POSSIBLE ANTERIOR MYOCARDIAL INFARCTI ON ABNORMAL ECG Since the prior tracing, there has been no significant change PREVIOUS TRACING : 09/09/2017 10.41 DOCTOR: Mj Connors Interpretating Date/Time 09/21/2017 11:03:13
== END 2017-09-20 19:46 | disposition home or self-care (01) ==
LOC: NEPE 14:22
DX: N39.0 Urinary tract infection, site not specified (principal); R53.1 Weakness; R94.31 Abnormal electrocardiogram [ECG] [EKG]; I48.91 Unspecified atrial fibrillation; E11.9 Type 2 diabetes mellitus without complications; E78.5 Hyperlipidemia, unspecified; I10 Essential (primary) hypertension; I25.10 Atherosclerotic heart disease of native coronary artery without angina pectoris; Z87.891 Personal history of nicotine dependence
CPT/HCPCS: 80053; 81001; 84484; 85025; 87086; 93005; 96360; 96372; 99284; J1815; J7030

== ENCOUNTER 2017-10-09 21:52 | Emergency (ER) | payer OTHER, MEDICAID ==
[~2017-10-09] VITALS: Ht 147.3 cm; Wt 67.5 kg
[~2017-10-09 21:52] MED LIST changes: +CEPH-460 PO
[2017-10-09 22:03] VITALS: BP 133/87; PULSE 109; RESP 18; TEMP 99.1; O2SAT 97
[2017-10-09 22:24] VITALS: O2SAT 98
[2017-10-09] MEDS ORDERED: KETOROLAC TROMETHAMINE 30 MG/ML (IVP) VIAL IV PUSH ONE (22:30)
[2017-10-09] MEDS ORDERED: SODIUM CHLORID 0.9% 500 ML INJ 500 ML IV ONE (22:30)
[2017-10-09 22:32] VITALS: BP 112/84; PULSE 102; RESP 16; O2SAT 95
--- NOTE | 2017-10-09 22:42 | PD ---
HPI Chief Complaint: Flank/Kidney Pain Time Seen by Provider: 22:14 Travel History International Travel<30 days: No Contact w/Intl Traveler<30days: No Traveled to known affect area: No History of Present Illness HPI 66 y/o female presents with right flank pain for the past couple days. She denies any other concurrent concerns. Quality pain is sharp. Severity is moderate. She denies any modifying factors. She states she finished her antibiotic from when she was here before and states those symptoms went away. She denies any migration of the pain. PFSH Past Medical History Hx Anticoagulant Therapy: Yes Anemia: Yes Arthritis: Yes Asthma: Yes Atrial Fibrillation: Yes Autoimmune Disease: No Blood Disorders: No Anxiety: Yes Depression: Yes Heart Rhythm Problems: Yes Cancer: No Cardiac Catheterization: Yes Cardiovascular Problems: Yes High Cholesterol: Yes Chemotherapy: No Chest Pain: Yes Congestive Heart Failure: Yes COPD: Yes Cerebrovascular Accident: Yes (LEFT SIDED WEAKNESS) Coronary Artery Disease: Yes Diabetes: Yes Patient Takes Glucophage: Yes Diminished Hearing: No Deep Vein Thrombosis: Yes (PE) Endocrine: Yes Gastrointestinal Disorders: Yes (BLEEDING;UNKNOWN ETIOLOGY) GERD: Yes Genitourinary: Yes (RENAL INSUFF) Headaches: Yes Hiatal Hernia: Yes Hypertension: Yes Immune Disorder: No Kidney Stones: No Musculoskeletal: Yes Neurologic: Yes Psychiatric: Yes Reproductive: No Respiratory: Yes (PE) Immunizations Current: No Migraines: No Myocardial Infarction: Yes Radiation Therapy: No Renal Failure: Yes Seizures: Yes Sickle Cell Disease: No Sleep Apnea: Yes (wears a CPAP) Thyroid Disease: No Ulcer: No PNEUMOCCOCAL Vaccine (Year): 3 Menopausal: Yes Past Surgical History Abdominal Surgery: Yes (bowel reconstruction) AICD: No Arteriovenous Shunt: No Cardiac Surgery: Yes (ABLASION FOR AFIB) Ear Surgery: No Endocrine Surgery: No Eye Surgery: No Genitourinary Surgery: No Gynecologic Surgery: Yes (hysterectomy) Hysterectomy: Yes Insulin Pump: No Joint Replacement: No Oral Surgery: No Pacemaker: No Thoracic Surgery: No Other Surgery: Yes Family History Family Myocardial Infarction: Yes Social History Alcohol Use: No Tobacco Use: No (quit over a year ago) Substance Use: No Allergies-Medications (Allergen,Severity, Reaction): Coded Allergies: iodine (Unverified Allergy, Severe, rash, 10/09/17) latex (Unverified Allergy, Severe, RASH, 10/09/17) penicillin G (Unverified Allergy, Severe, SWELLING,HIVES, 10/09/17) potassium iodide (Unverified Allergy, Severe, rash, 10/09/17) povidone-iodine (Unverified Allergy, Severe, rash, 10/09/17) sodium iodide (Unverified Allergy, Severe, rash, 10/09/17) sodium iodide (Unverified Allergy, Severe, rash, 10/09/17) Reported Meds & Prescriptions Reported Meds & Active Scripts Active Keflex (Cephalexin) 500 Mg Cap 500 Mg PO Q8H Azithromycin 250 Mg Tab 250 Mg PO DIRECTED Take 2 tabs (500 mg) on day 1 then 1 tab daily x 4 days. Spironolactone 50 Mg Tab 25 Mg PO DAILY Gabapentin 100 Mg Cap 200 Mg PO TID Reported [[place] Xl] 2 Cap PO DAILY Flexeril (Cyclobenzaprine HCl) 10 Mg Tab 10 Mg PO TID Vitamin D3 (Cholecalciferol) 2,000 Unit Cap 2,000 Units PO DAILY Vitamin E 200 Unit Cap 400 Units PO DAILY Lisinopril 2.5 Mg Tab 2.5 Mg PO DAILY Cetirizine (Cetirizine HCl) 10 Mg Tab 10 Mg PO DAILY Eliquis (Apixaban) 5 Mg Tab 5 Mg PO BID Sertraline (Sertraline HCl) 100 Mg Tab 100 Mg PO DAILY Ropinirole 0.5 Mg Tab 0.5 Mg PO HS Nitrostat SL (Nitroglycerin) 0.4 Mg Subl 0.4 Mg SL DIRECTED PRN 1 tablet under the tongue as needed for chest pain. Repeat every 5 minutes for a total of 3 DOSES or call 911 if NO relief. Keppra (Levetiracetam) 500 Mg Tab 500 Mg PO BID Lantus Inj (Insulin Glargine) 1,000 Unit/10 Ml Vial 32 Units SQ HS Novolog Flexpen Inj (Insulin Aspart) 300 Unit/3 Ml Pen 1 Units SQ Atorvastatin (Atorvastatin Calcium) 80 Mg Tab 80 Mg PO HS Xanax (Alprazolam) 0.5 Mg Tab 0.5 Mg PO BID PRN Proair Hfa 8.5 GM Inh (Albuterol Sulfate) 90 Mcg/Act Aer 2 Puff INH Q4-6H PRN 108 mcg/actuation Review of Systems Except as stated in HPI: all other systems reviewed are Neg Physical Exam Narrative GENERAL: 66 y/o female in no apparent distress SKIN: Focused skin assessment warm/dry. HEAD: Atraumatic. Normocephalic. EYES: No scleral icterus. No injection or drainage. ENT: No nasal bleeding or discharge. Mucous membranes pink and moist. NECK: Trachea midline. No JVD. CARDIOVASCULAR: Regular rate and rhythm. RESPIRATORY: No accessory muscle use. GASTROINTESTINAL: Abdomen soft, non-tender, nondistended MUSCULOSKELETAL: No obvious deformities. Back: no cvat, no midline pain NEUROLOGICAL: Awake and alert. No obvious cranial nerve deficits. Motor grossly within normal limits. Normal speech. PSYCHIATRIC: Appropriate mood and affect; insight and judgment normal. Data Data Last Documented VS Vital Signs Date Time Temp Pulse Resp B/P (MAP) Pulse Ox O2 Delivery O2 Flow Rate FiO2 10/09/17 22:32 102 16 112/84 (93) 95 Room Air 10/09/17 22:03 99.1 Orders Orders Complete Blood Count With Diff (10/09/17 22:16) Comprehensive Metabolic Panel (10/09/17 22:16) Urinalysis - C+S If Indicated (10/09/17 22:16) Lipase (10/09/17 22:16) Ct Abd/Pel W/O Iv Contrast (10/09/17 ) Iv Access Insert/Monitor (10/09/17 22:16) Oximetry (10/09/17 22:16) Ketorolac Inj (Toradol Inj) (10/09/17 22:30) Sodium Chlorid 0.9% 500 Ml Inj (Ns 500 M (10/09/17 22:30) Ed Discharge Order (10/09/17 23:58) Labs Laboratory Tests Test 10/09/17 22:20 10/09/17 22:30 White Blood Count 9.4 TH/MM3 Red Blood Count 4.42 MIL/MM3 Hemoglobin 12.4 GM/DL Hematocrit 36.8 % Mean Corpuscular Volume 83.3 FL Mean Corpuscular Hemoglobin 27.9 PG Mean Corpuscular Hemoglobin Concent 33.6 % Red Cell Distribution Width 14.6 % Platelet Count 358 TH/MM3 Mean Platelet Volume 7.9 FL Neutrophils (%) (Auto) 49.4 % Lymphocytes (%) (Auto) 35.6 % Monocytes (%) (Auto) 8.5 % Eosinophils (%) (Auto) 5.7 % Basophils (%) (Auto) 0.8 % Neutrophils # (Auto) 4.6 TH/MM3 Lymphocytes # (Auto) 3.3 TH/MM3 Monocytes # (Auto) 0.8 TH/MM3 Eosinophils # (Auto) 0.5 TH/MM3 Basophils # (Auto) 0.1 TH/MM3 CBC Comment DIFF FINAL Differential Comment Blood Urea Nitrogen 19 MG/DL Creatinine 1.54 MG/DL Random Glucose 96 MG/DL Total Protein 8.3 GM/DL Albumin 3.7 GM/DL Calcium Level 9.6 MG/DL Alkaline Phosphatase 254 U/L Aspartate Amino Transf (AST/SGOT) 28 U/L Alanine Aminotransferase (ALT/SGPT) 25 U/L Total Bilirubin 0.2 MG/DL Sodium Level 136 MEQ/L Potassium Level 4.9 MEQ/L Chloride Level 104 MEQ/L Carbon Dioxide Level 25.2 MEQ/L Anion Gap 7 MEQ/L Estimat Glomerular Filtration Rate 41 ML/MIN Lipase 192 U/L Urine Color LIGHT-YELLOW Urine Turbidity CLEAR Urine pH 5.5 Urine Specific [place] 1.010 Urine Protein NEG mg/dL Urine Glucose (UA) NEG mg/dL Urine Ketones NEG mg/dL Urine Occult Blood NEG Urine Nitrite NEG Urine Bilirubin NEG Urine Urobilinogen LESS THAN 2.0 MG/DL Urine Leukocyte Esterase SMALL Urine WBC LESS THAN 1 /hpf Urine Squamous Epithelial Cells 1 /hpf Urine Bacteria RARE /hpf Microscopic Urinalysis Comment CULT NOT INDICATED MDM Medical Decision Making Medical Screen Exam Complete: Yes Emergency Medical Condition: Yes Medical Record Reviewed: Yes (pmh confirmed) Interpretation(s) CBC & BMP Diagram 10/09/17 22:20 Total Protein 8.3 H, Albumin 3.7, Calcium Level 9.6, Alkaline Phosphatase 254 H , Aspartate Amino Transf (AST/SGOT) 28, Alanine Aminotransferase (ALT/SGPT) 25, Total Bilirubin 0.2 ct abdomen pelvis no acute ua no acute Differential Diagnosis stone, uti, musculoskeletal... Narrative Course will check labs, ua, ct abdomen pelvis and dose with toradol and reeval ed workup no emergent process, Patient denies any new complaints and states that they are feeling better. Patient happy with care, all questions answered. Patient knows that follow up is incumbent on them and to return to the emergency room immediately if new or worsening symptoms develop. Patient given strict return precautions, vitals reviewed and are normal, agrees to further workup as an outpatient. Diagnosis Primary Impression: Flank pain Patient Instructions: General Instructions Additional Instructions: tylenol as needed, follow with primary this week, return as needed Med/Other Pt SpecificInfo: No Change to Meds Disposition: 01 DISCHARGE HOME Condition: Stable Dawn Harris MD Oct 09, 2017 22:42
[2017-10-09 22:48] LABS: AUTOMATED NEUTROPHIL # 4.6 TH/MM3 (1.8-7.7); BASOPHIL # 0.1 TH/MM3 (0-0.2); BASOPHIL % 0.8 % (0.0-2.0); EOSINOPHIL # 0.5 TH/MM3 (0-0.4); EOSINOPHIL % 5.7 % (0.0-4.0); HEMATOCRIT 36.8 % (35.0-46.0); HEMOGLOBIN 12.4 GM/DL (11.6-15.3); LYMPH % 35.6 % (9.0-44.0); LYMPHOCYTE # 3.3 TH/MM3 (1.0-4.8); MEAN CELL VOLUME 83.3 FL (80.0-100.0); MEAN CORPUSCULAR HEMOGLOBIN 27.9 PG (27.0-34.0); MEAN CORPUSCULAR HGB CONC 33.6 % (32.0-36.0); MEAN PLATELET VOLUME 7.9 FL (7.0-11.0); MONO % 8.5 % (0.0-8.0); MONOCYTE # 0.8 TH/MM3 (0-0.9); NEUT % 49.4 % (16.0-70.0); PLATELET COUNT 358 TH/MM3 (150-450); RED BLOOD COUNT 4.42 MIL/MM3 (4.00-5.30); RED CELL DISTRIBUTION WIDTH 14.6 % (11.6-17.2); WHITE BLOOD COUNT 9.4 TH/MM3 (4.0-11.0)
[2017-10-09 22:52] LABS: BACTERIA, URINE RARE /hpf; BILIRUBIN, URINE NEG (NEG); BLOOD, URINE NEG (NEG); GLUCOSE,URINE NEG (NEG); KETONE, URINE NEG (NEG); NITRITE,URINE NEG (NEG); PH, URINE 5.5 (5.0-8.5); SQUAMOUS EPITHELIAL CELL URINE 1 /hpf (0-5); URINE COLOR LIGHT-YELLOW (YELLW/STRAW); URINE LEUKOCYTE ESTERASE SMALL (NEG)
[2017-10-09 23:10] LABS: ALBUMIN 3.7 GM/DL (3.4-5.0); ALT (GPT) 25 U/L (10-53); AST (GOT) 28 U/L (15-37); BICARBONATE 25.2 MEQ/L (21.0-32.0); BLOOD UREA NITROGEN 19 MG/DL (7-18); CALCIUM 9.6 MG/DL (8.5-10.1); CHLORIDE 104 MEQ/L (98-107); CREATININE 1.54 MG/DL (0.50-1.00); GLOMERULAR FILTRATION RATE 41 ML/MIN (>89); GLUCOSE,RANDOM 96 MG/DL (74-106); SODIUM (NA) 136 MEQ/L (136-145)
[2017-10-09 23:12] LABS: ALKALINE PHOSPHATASE 254 U/L (45-117); TOTAL BILIRUBIN ADULT 0.2 MG/DL (0.2-1.0); TOTAL PROTEIN 8.3 GM/DL (6.4-8.2)
--- NOTE | 2017-10-09 23:56 | RADRPT ---
EXAM DATE/TIME: 10/09/2017 23:15 [facility] COMPARISON: CT ABDOMEN & PELVIS W/O CONTRAST, September 09, 2017, 10:32. INDICATIONS : Right sided flank pain. ORAL CONTRAST: No oral contrast ingested. RADIATION DOSE: 14.88 CTDIvol (mGy) MEDICAL HISTORY : Cardiovascular disease. Myocardial infarction. Congestive heart failure.CAD. DVT. CVA. COPD. Pulmonar y embolism. SURGICAL HISTORY : Colon resection. Hysterectomy. ENCOUNTER: Initial ACUITY: 3 days PAIN SCALE: 4/10 LOCATION: Right flank TECHNIQUE: Renal colic protocol. Volumetric scanning of the abdomen and pelvis was performed. Using automated exposure control and adjustment of the mA and/or kV according to patient size, radiation dose was kep t as low as reasonably achievable to obtain optimal diagnostic quality images. DICOM format image da ta is available electronically for review and comparison. FINDINGS: Right side: No calcified renal stones. Normal diameter and no calcified stones along the left ureter. Stable 1. 3 cm cortical cyst upper pole. There are multiple calcified phleboliths in the right flank, similar to prior CT scan in August 2017. Left side: No calcified renal stones, no evidence of hydronephrosis normal diameter to the left ureter. Bladder: No calcified stones within the lumen. Other: Anastomosis suture in the low midline abdomen with some mild dilation of the bowel adjacent to the an astomosis suture. The remainder of the bowel is normal in dimension. The appendix is identified in the right lower quadrant and has a normal appearance. No calcified stones in a contracted gallbladde r. No evidence of free fluid. CONCLUSION: Negative renal colic CT. Suman Back MD on October 09, 2017 at 23:41 Board Certified Radiologist. This report was verified electronically.
== END 2017-10-10 00:30 | disposition home or self-care (01) ==
LOC: NEPC 21:52
DX: R10.9 Unspecified abdominal pain (principal); I13.0 Hypertensive heart and chronic kidney disease with heart failure and stage 1 through stage 4 chronic kidney disease, or unspecified chronic kidney disease; I50.9 Heart failure, unspecified; I25.10 Atherosclerotic heart disease of native coronary artery without angina pectoris; E78.00 Pure hypercholesterolemia, unspecified; I25.2 Old myocardial infarction; J44.9 Chronic obstructive pulmonary disease, unspecified; E11.22 Type 2 diabetes mellitus with diabetic chronic kidney disease; I48.91 Unspecified atrial fibrillation; N18.9 Chronic kidney disease, unspecified; F41.9 Anxiety disorder, unspecified; F32.9 Major depressive disorder, single episode, unspecified; Z86.73 Personal history of transient ischemic attack (TIA), and cerebral infarction without residual deficits; Z87.891 Personal history of nicotine dependence; Z86.711 Personal history of pulmonary embolism; Z88.0 Allergy status to penicillin; Z88.8 Allergy status to other drugs, medicaments and biological substances; Z79.4 Long term (current) use of insulin; Z79.01 Long term (current) use of anticoagulants; Z79.899 Other long term (current) drug therapy
CPT/HCPCS: 74176; 80053; 81001; 83690; 85025; 96374; 99284; J1885; J7040

== ENCOUNTER 2017-10-20 01:32 | Emergency (ER) | payer OTHER, MEDICAID ==
[~2017-10-20] VITALS: Ht 147.3 cm; Wt 65.0 kg
[2017-10-20 01:53] VITALS: BP 146/70; PULSE 100; RESP 18; TEMP 98.6; O2SAT 95
[2017-10-20 05:38] VITALS: BP 134/79; PULSE 100; RESP 16; TEMP 98.3; O2SAT 98
[2017-10-20] MEDS ORDERED: MORPHINE SULFATE 4 MG/ML INJ IV PUSH ONE (06:45)
--- NOTE | 2017-10-20 06:53 | PD ---
HPI Chief Complaint: Fall Time Seen by Provider: 06:28 Travel History International Travel<30 days: No Contact w/Intl Traveler<30days: No Traveled to known affect area: No History of Present Illness HPI 66yo F with PMH of chronic pain, CKD, PE on eliquis, presents to the ED with c/ o right sided pain s/p fall at 3pm yesterday. Said her legs just gives out and sometimes she falls. Denies any dizziness, chest pain, sob, fever, n/v, focal weakness or numbness. Denies any head trauma or LOC. Pt was just here for right flank pain 10/09/[address] a/p negative. PFSH Past Medical History Hx Anticoagulant Therapy: Yes (Eliquis) Anemia: Yes Arthritis: Yes Asthma: Yes Atrial Fibrillation: Yes Autoimmune Disease: No Blood Disorders: No Anxiety: Yes Depression: Yes Heart Rhythm Problems: Yes Cancer: No Cardiac Catheterization: Yes Cardiovascular Problems: Yes High Cholesterol: Yes Chemotherapy: No Chest Pain: Yes Congestive Heart Failure: Yes COPD: Yes Cerebrovascular Accident: Yes (x4) Coronary Artery Disease: Yes Diabetes: Yes Patient Takes Glucophage: No Diminished Hearing: No Deep Vein Thrombosis: Yes (PE) Endocrine: Yes Gastrointestinal Disorders: Yes GERD: Yes Genitourinary: Yes Headaches: Yes Hiatal Hernia: Yes Hypertension: Yes Immune Disorder: No Kidney Stones: No Musculoskeletal: Yes Neurologic: Yes Psychiatric: Yes Reproductive: No Respiratory: Yes (PE) Immunizations Current: No Migraines: No Myocardial Infarction: Yes Radiation Therapy: No Renal Failure: Yes Seizures: Yes Sickle Cell Disease: No Sleep Apnea: Yes (wears a CPAP) Thyroid Disease: No Ulcer: No Tetanus Vaccination: < 5 Years Influenza Vaccination: Yes PNEUMOCCOCAL Vaccine (Year): 3 Menopausal: Yes Past Surgical History Abdominal Surgery: Yes (bowel reconstruction) AICD: No Arteriovenous Shunt: No Cardiac Surgery: Yes (ABLASION FOR AFIB) Ear Surgery: No Endocrine Surgery: No Eye Surgery: No Genitourinary Surgery: No Gynecologic Surgery: Yes (hysterectomy) Hysterectomy: Yes Insulin Pump: No Joint Replacement: No Oral Surgery: No Pacemaker: No Thoracic Surgery: No Other Surgery: Yes Family History Family Myocardial Infarction: Yes Social History Alcohol Use: No Tobacco Use: No Substance Use: No Allergies-Medications (Allergen,Severity, Reaction): Coded Allergies: iodine (Unverified Allergy, Severe, rash, 10/20/17) latex (Unverified Allergy, Severe, RASH, 10/20/17) penicillin G (Unverified Allergy, Severe, SWELLING,HIVES, 10/20/17) potassium iodide (Unverified Allergy, Severe, rash, 10/20/17) povidone-iodine (Unverified Allergy, Severe, rash, 10/20/17) sodium iodide (Unverified Allergy, Severe, rash, 10/20/17) sodium iodide (Unverified Allergy, Severe, rash, 10/20/17) Reported Meds & Prescriptions Reported Meds & Active Scripts Active Spironolactone 50 Mg Tab 25 Mg PO DAILY Gabapentin 100 Mg Cap 200 Mg PO TID Reported [[place] Xl] 2 Cap PO DAILY Flexeril (Cyclobenzaprine HCl) 10 Mg Tab 10 Mg PO TID Vitamin D3 (Cholecalciferol) 2,000 Unit Cap 2,000 Units PO DAILY Vitamin E 200 Unit Cap 400 Units PO DAILY Lisinopril 2.5 Mg Tab 2.5 Mg PO DAILY Cetirizine (Cetirizine HCl) 10 Mg Tab 10 Mg PO DAILY Eliquis (Apixaban) 5 Mg Tab 5 Mg PO BID Sertraline (Sertraline HCl) 100 Mg Tab 100 Mg PO DAILY Ropinirole 0.5 Mg Tab 0.5 Mg PO HS Nitrostat SL (Nitroglycerin) 0.4 Mg Subl 0.4 Mg SL DIRECTED PRN 1 tablet under the tongue as needed for chest pain. Repeat every 5 minutes for a total of 3 DOSES or call 911 if NO relief. Keppra (Levetiracetam) 500 Mg Tab 500 Mg PO BID Lantus Inj (Insulin Glargine) 1,000 Unit/10 Ml Vial 32 Units SQ HS Novolog Flexpen Inj (Insulin Aspart) 300 Unit/3 Ml Pen 1 Units SQ Atorvastatin (Atorvastatin Calcium) 80 Mg Tab 80 Mg PO HS Xanax (Alprazolam) 0.5 Mg Tab 0.5 Mg PO BID PRN Proair Hfa 8.5 GM Inh (Albuterol Sulfate) 90 Mcg/Act Aer 2 Puff INH Q4-6H PRN 108 mcg/actuation Review of Systems Except as stated in HPI: all other systems reviewed are Neg Physical Exam Narrative GENERAL: 66yo F in mild distress. SKIN: Focused skin assessment warm/dry. HEAD: Atraumatic. Normocephalic. EYES: Pupils equal and round. No scleral icterus. No injection or drainage. ENT: No nasal bleeding or discharge. Mucous membranes pink and moist. NECK: Trachea midline. No JVD. CARDIOVASCULAR: Regular rate and rhythm. No murmur appreciated. RESPIRATORY: No accessory muscle use. Clear to auscultation. Breath sounds equal bilaterally. GASTROINTESTINAL: Abdomen soft, +TTP right flank. No rebound tenderness or guarding. No ecchymoses. BACK: No midline ttp. +CVA tenderness right. MUSCULOSKELETAL: +TTP right lower rib. No ecchymoses or erythema. RLE: +TTP right knee where the abrasion is. Sensation intact. Distal pulses intact. NEUROLOGICAL: Awake and alert. No obvious cranial nerve deficits. Motor grossly within normal limits. Normal speech. PSYCHIATRIC: Appropriate mood and affect; insight and judgment normal. Data Data Last Documented VS Vital Signs Date Time Temp Pulse Resp B/P (MAP) Pulse Ox O2 Delivery O2 Flow Rate FiO2 10/20/17 07:00 18 10/20/17 06:20 103 98 Room Air 10/20/17 05:38 98.3 134/79 (97) Orders Orders Complete Blood Count With Diff (10/20/17 06:41) Comprehensive Metabolic Panel (10/20/17 06:41) Prothrombin Time / Inr (Pt) (10/20/17 06:41) Act Partial Throm Time (Ptt) (10/20/17 06:41) Ribs, Uni (W/Exp Cxr-Min 3vw) (10/20/17 ) Knee, Ltd (1 Or 2vws) (10/20/17 ) Morphine Inj (Morphine Inj) (10/20/17 06:45) Urinalysis - C+S If Indicated (10/20/17 06:54) Ed Discharge Order (10/20/17 10:17) Ct Abd/Pel W/O Iv Contrast (10/20/17 ) Labs Laboratory Tests Test 10/20/17 06:50 10/20/17 09:30 White Blood Count 8.2 TH/MM3 Red Blood Count 4.28 MIL/MM3 Hemoglobin 12.0 GM/DL Hematocrit 36.1 % Mean Corpuscular Volume 84.4 FL Mean Corpuscular Hemoglobin 28.1 PG Mean Corpuscular Hemoglobin Concent 33.3 % Red Cell Distribution Width 14.6 % Platelet Count 334 TH/MM3 Mean Platelet Volume 7.7 FL Neutrophils (%) (Auto) 59.9 % Lymphocytes (%) (Auto) 27.6 % Monocytes (%) (Auto) 6.8 % Eosinophils (%) (Auto) 4.9 % Basophils (%) (Auto) 0.8 % Neutrophils # (Auto) 4.9 TH/MM3 Lymphocytes # (Auto) 2.3 TH/MM3 Monocytes # (Auto) 0.6 TH/MM3 Eosinophils # (Auto) 0.4 TH/MM3 Basophils # (Auto) 0.1 TH/MM3 CBC Comment DIFF FINAL Differential Comment Prothrombin Time 10.3 SEC Prothromb Time International Ratio 1.0 RATIO Activated Partial Thromboplast Time 25.9 SEC Blood Urea Nitrogen 20 MG/DL Creatinine 1.65 MG/DL Random Glucose 149 MG/DL Total Protein 7.9 GM/DL Albumin 3.4 GM/DL Calcium Level 9.1 MG/DL Alkaline Phosphatase 243 U/L Aspartate Amino Transf (AST/SGOT) 24 U/L Alanine Aminotransferase (ALT/SGPT) 37 U/L Total Bilirubin 0.1 MG/DL Sodium Level 139 MEQ/L Potassium Level 4.0 MEQ/L Chloride Level 108 MEQ/L Carbon Dioxide Level 24.1 MEQ/L Anion Gap 7 MEQ/L Estimat Glomerular Filtration Rate 38 ML/MIN Urine Color YELLOW Urine Turbidity CLEAR Urine pH 5.5 Urine Specific [place] 1.017 Urine Protein NEG mg/dL Urine Glucose (UA) NEG mg/dL Urine Ketones NEG mg/dL Urine Occult Blood TRACE Urine Nitrite NEG Urine Bilirubin NEG Urine Urobilinogen LESS THAN 2.0 MG/DL Urine Leukocyte Esterase NEG Urine RBC 2 /hpf Urine WBC 1 /hpf Urine Transitional Epithelial Cells <1 /hpf Urine Hyaline Casts 3 /lpf Urine Mucus FEW /lpf Microscopic Urinalysis Comment CATH-CULT NOT IND MDM Medical Decision Making Medical Screen Exam Complete: Yes Emergency Medical Condition: Yes Differential Diagnosis Rib contusion vs. rib fracture vs. intaabdominal injury Narrative Course 66yo F with right sided pain s/p fall from standing yesterday. No head trauma or focal neurologic deficits. Will obtain labs and CT a/p, xray right ribs and right knee. Tetanus is up to date per patient. Pt given morphine for pain. Pt seen at the end of my shift and sign out to next team to follow up results and disposition. Diagnosis Primary Impression: Abdominal pain Qualified Codes: R10.9 - Unspecified abdominal pain Rashmi Calvillo DO Oct 20, 2017 06:53
[2017-10-20 07:00] VITALS: RESP 18
[2017-10-20 07:28] LABS: AUTOMATED NEUTROPHIL # 4.9 TH/MM3 (1.8-7.7); BASOPHIL # 0.1 TH/MM3 (0-0.2); BASOPHIL % 0.8 % (0.0-2.0); EOSINOPHIL # 0.4 TH/MM3 (0-0.4); EOSINOPHIL % 4.9 % (0.0-4.0); HEMATOCRIT 36.1 % (35.0-46.0); LYMPH % 27.6 % (9.0-44.0); LYMPHOCYTE # 2.3 TH/MM3 (1.0-4.8); MEAN CELL VOLUME 84.4 FL (80.0-100.0); MEAN CORPUSCULAR HEMOGLOBIN 28.1 PG (27.0-34.0); MEAN CORPUSCULAR HGB CONC 33.3 % (32.0-36.0); MEAN PLATELET VOLUME 7.7 FL (7.0-11.0); MONO % 6.8 % (0.0-8.0); MONOCYTE # 0.6 TH/MM3 (0-0.9); NEUT % 59.9 % (16.0-70.0); PLATELET COUNT 334 TH/MM3 (150-450); RED BLOOD COUNT 4.28 MIL/MM3 (4.00-5.30); RED CELL DISTRIBUTION WIDTH 14.6 % (11.6-17.2); WHITE BLOOD COUNT 8.2 TH/MM3 (4.0-11.0)
[2017-10-20 07:33] LABS: PROTHROMBIN TIME - PATIENT 10.3 SEC (9.8-11.6)
[2017-10-20 07:54] LABS: ALKALINE PHOSPHATASE 243 U/L (45-117); TOTAL BILIRUBIN ADULT 0.1 MG/DL (0.2-1.0); TOTAL PROTEIN 7.9 GM/DL (6.4-8.2)
[2017-10-20 07:57] LABS: ALBUMIN 3.4 GM/DL (3.4-5.0); ALT (GPT) 37 U/L (10-53); AST (GOT) 24 U/L (15-37); BICARBONATE 24.1 MEQ/L (21.0-32.0); BLOOD UREA NITROGEN 20 MG/DL (7-18); CALCIUM 9.1 MG/DL (8.5-10.1); CHLORIDE 108 MEQ/L (98-107); CREATININE 1.65 MG/DL (0.50-1.00); GLOMERULAR FILTRATION RATE 38 ML/MIN (>89); GLUCOSE,RANDOM 149 MG/DL (74-106); SODIUM (NA) 139 MEQ/L (136-145)
--- NOTE | 2017-10-20 08:22 | RADRPT ---
EXAM DATE/TIME: 10/20/2017 07:24 [facility] COMPARISON: CT ABDOMEN & PELVIS W/O CONTRAST, October 20, 2017, 8:02. INDICATIONS : Right side rib pain after fall, lateral side of lower chest. MEDICAL HISTORY : Cardiovascular disease. Myocardial infarction. Congestive heart failure. CAD , CVA. COPD. Pulmonary e mbolism. . DVT. SURGICAL HISTORY : Colon resection. Hysterectomy ENCOUNTER: Initial ACUITY: 1 day PAIN SCORE: 10/10 LOCATION: Right Chest/ribs. FINDINGS: Multiple views of the right ribs were performed. There is no evidence of displaced fracture. No emory tructive lesions or areas of periosteal thickening are seen. Expiratory view of the chest is negativ e for pneumothorax. The mediastinal structures are midline. CONCLUSION: 1. No displaced rib fractures or pneumothorax. Sonny Castanon MD on October 20, 2017 at 8:17 Board Certified Radiologist. This report was verified electronically.
--- NOTE | 2017-10-20 08:24 | RADRPT ---
EXAM DATE/TIME: 10/20/2017 07:33 [facility] COMPARISON: No previous studies available for comparison. INDICATIONS : Right knee pain and abrasion after falling. MEDICAL HISTORY : CVA. COPD. Pulmonary embolism. Cardiovascular disease. Myocardial infarction. Congestive heart failur e.CAD. DVT. SURGICAL HISTORY : Colon resection. Hysterectomy ENCOUNTER: Initial ACUITY: 1 day PAIN SCORE: 9/10 LOCATION: Right Knee. FINDINGS: Two view examination of the right knee demonstrates no evidence of fracture or dislocation. Bony min eralization is normal. Mild tricompartmental degenerative change. The suprapatellar soft tissues have a normal configuration. CONCLUSION: 1. No acute fracture or dislocation. 2. Mild tricompartmental degenerative osteoarthritis. Sonny Castanon MD on October 20, 2017 at 8:21 Board Certified Radiologist. This report was verified electronically.
--- NOTE | 2017-10-20 09:11 | RADRPT ---
EXAM DATE/TIME: 10/20/2017 08:02 [facility] COMPARISON: No previous studies available for comparison. INDICATIONS : Right sided abdominal pain ORAL CONTRAST: No oral contrast ingested. RADIATION DOSE: 9.37 CTDIvol (mGy) MEDICAL HISTORY : Cerebrovascular disease. Gastroesophageal reflux disease. Chronic obstructive pulmonary disease.Seizu res, Congestive heart failure, Hypertension, Diverticulitis, Hiatal hernia, Renal failure, Diabetes SURGICAL HISTORY : Hysterectomy. ENCOUNTER: Initial ACUITY: 1 day PAIN SCALE: 5/10 LOCATION: Right Abdomen TECHNIQUE: Volumetric scanning of the abdomen and pelvis was performed. Using automated exposure control and ad justment of the mA and/or kV according to patient size, radiation dose was kept as low as reasonably achievable to obtain optimal diagnostic quality images. DICOM format image data is available electro nically for review and comparison. FINDINGS: Lung bases demonstrate some dependent atelectasis. No acute findings in the liver, spleen adrenals, kidneys or pancreas. No calcified gallstones or bili jewell ductal dilatation. No pelvic masses or free fluid. No adenopathy. No acute bony abnormalities. CONCLUSION: 1. No acute findings on abdomen and pelvic CT. Chang Alejandro MD on October 20, 2017 at 8:54 Board Certified Radiologist. This report was verified electronically.
--- NOTE | 2017-10-20 09:22 | PD ---
Physical Exam Narrative Patient signed out to me by Dr. Calvillo. Please see her documentation for complete details. Briefly, patient is a 66 year old female who comes in complaining of right sided pain after a fall last night. She says she hit her knee and her right side. She denies hitting her head or any LOC. Exam shows no tenderness to palpation, she is resting comfortably. Data Data Last Documented VS Vital Signs Date Time Temp Pulse Resp B/P (MAP) Pulse Ox O2 Delivery O2 Flow Rate FiO2 10/20/17 07:00 18 10/20/17 06:20 103 98 Room Air 10/20/17 05:38 98.3 134/79 (97) Orders Orders Complete Blood Count With Diff (10/20/17 06:41) Comprehensive Metabolic Panel (10/20/17 06:41) Prothrombin Time / Inr (Pt) (10/20/17 06:41) Act Partial Throm Time (Ptt) (10/20/17 06:41) Ribs, Uni (W/Exp Cxr-Min 3vw) (10/20/17 ) Knee, Ltd (1 Or 2vws) (10/20/17 ) Morphine Inj (Morphine Inj) (10/20/17 06:45) Urinalysis - C+S If Indicated (10/20/17 06:54) Ct Abd/Pel W Iv Contrast(Rout) (10/20/17 ) Labs Laboratory Tests Test 10/20/17 06:50 White Blood Count 8.2 TH/MM3 Red Blood Count 4.28 MIL/MM3 Hemoglobin 12.0 GM/DL Hematocrit 36.1 % Mean Corpuscular Volume 84.4 FL Mean Corpuscular Hemoglobin 28.1 PG Mean Corpuscular Hemoglobin Concent 33.3 % Red Cell Distribution Width 14.6 % Platelet Count 334 TH/MM3 Mean Platelet Volume 7.7 FL Neutrophils (%) (Auto) 59.9 % Lymphocytes (%) (Auto) 27.6 % Monocytes (%) (Auto) 6.8 % Eosinophils (%) (Auto) 4.9 % Basophils (%) (Auto) 0.8 % Neutrophils # (Auto) 4.9 TH/MM3 Lymphocytes # (Auto) 2.3 TH/MM3 Monocytes # (Auto) 0.6 TH/MM3 Eosinophils # (Auto) 0.4 TH/MM3 Basophils # (Auto) 0.1 TH/MM3 CBC Comment DIFF FINAL Differential Comment Prothrombin Time 10.3 SEC Prothromb Time International Ratio 1.0 RATIO Activated Partial Thromboplast Time 25.9 SEC Blood Urea Nitrogen 20 MG/DL Creatinine 1.65 MG/DL Random Glucose 149 MG/DL Total Protein 7.9 GM/DL Albumin 3.4 GM/DL Calcium Level 9.1 MG/DL Alkaline Phosphatase 243 U/L Aspartate Amino Transf (AST/SGOT) 24 U/L Alanine Aminotransferase (ALT/SGPT) 37 U/L Total Bilirubin 0.1 MG/DL Sodium Level 139 MEQ/L Potassium Level 4.0 MEQ/L Chloride Level 108 MEQ/L Carbon Dioxide Level 24.1 MEQ/L Anion Gap 7 MEQ/L Estimat Glomerular Filtration Rate 38 ML/MIN MDM Supervised Visit with BOYD: No Narrative Course XR of the knee and ribs show no acute abnormalities. CT abd/pelvis show no acute abnormalities. Labs show no acute abnormalities. She is resting comfortably. Advised to follow up with her doctor. Take Tylenol as needed for pain. Last 24 hours Impressions Ribs X-Ray 10/20/17 0000 Signed Impressions: Service Date/Time: Friday, October 20, 2017 07:24 - CONCLUSION: 1. No displaced rib fractures or pneumothorax. Sonny Castanon MD Knee X-Ray 10/20/17 0000 Signed Impressions: Service Date/Time: Friday, October 20, 2017 07:33 - CONCLUSION: 1. No acute fracture or dislocation. 2. Mild tricompartmental degenerative osteoarthritis. Sonny Castanon MD Abdomen/Pelvis CT 10/20/17 0000 Signed Impressions: Service Date/Time: Friday, October 20, 2017 08:02 - CONCLUSION: 1. No acute findings on abdomen and pelvic CT. Chang Alejandro MD Diagnosis Primary Impression: Abdominal pain Qualified Codes: R10.9 - Unspecified abdominal pain Patient Instructions: Fall Prevention (ED), General Instructions Additional Instruction: Take Tylenol as needed for pain. Follow up with your doctor. Return to the ED as needed for any worsening symptoms. Disposition: 01 DISCHARGE HOME Condition: Stable Radha Pathak MD Oct 20, 2017 09:22
[2017-10-20 10:00] LABS: BILIRUBIN, URINE NEG (NEG); BLOOD, URINE TRACE (NEG); GLUCOSE,URINE NEG (NEG); HYALINE CAST, URINE 3 /lpf (RARE); KETONE, URINE NEG (NEG); MUCUS URINE FEW /lpf (OCC); NITRITE,URINE NEG (NEG); PH, URINE 5.5 (5.0-8.5); TRANSITIONAL EPI CELLS, URINE <1 /hpf; URINE COLOR YELLOW (YELLW/STRAW); URINE LEUKOCYTE ESTERASE NEG (NEG)
== END 2017-10-20 10:35 | disposition home or self-care (01) ==
LOC: NEPE 01:32
DX: R10.9 Unspecified abdominal pain (principal); E78.00 Pure hypercholesterolemia, unspecified; I13.0 Hypertensive heart and chronic kidney disease with heart failure and stage 1 through stage 4 chronic kidney disease, or unspecified chronic kidney disease; I48.91 Unspecified atrial fibrillation; E11.22 Type 2 diabetes mellitus with diabetic chronic kidney disease; N18.9 Chronic kidney disease, unspecified; I50.9 Heart failure, unspecified; Z79.01 Long term (current) use of anticoagulants; Z79.4 Long term (current) use of insulin
CPT/HCPCS: 71101; 73560; 74176; 80053; 81001; 85025; 85610; 85730; 96374; 99285; J2270